=== PATIENT | female | born 1945 | race Caucasian/White ===

== ENCOUNTER 2016-08-12 07:50 | Day surgery (SDC) | payer MEDICARE ==
[2016-08-08 09:42] VITALS: BMI 24.8
[~2016-08-12 07:50] MED LIST: LACTATED RINGERS 1,000 ML IV SCH; LIDOCAINE 1% 20 ML VIAL (10MG/ML) FOR IV START INTRADERMA PRN
[2016-08-12 08:17] VITALS: RESP 16; TEMP 97.9
[2016-08-12] MEDS ORDERED: LIDOCAINE 1% INJ 10MG/ML (20 ML MDV) ONE (08:48)
[2016-08-12] MEDS ORDERED: PROPOFOL 10 MG/ML 20 ML VIAL IV ONE (08:48)
--- NOTE | 2016-08-12 09:35 | P.PCN ---
Date of Procedure: 08/12/16 Procedure(s) Performed: Procedure: Total colonoscopy. Preoperative diagnosis screening for neoplasia. Postoperative diagnosis: Diverticulosis with no evidence of acute diverticulitis , strictures, polyps or cancer. Preparation: HalfLytely prep. Sedation: Was provided by anesthesia. Brief clinical history: The patient is a 70-year-old female with family history of colon cancer in her mother and personal history of polyps. She is scheduled for this evaluation for screening for neoplasia. Her last exam was in January 2011. She has no abdominal complaints, bleeding or anemia. Procedure: With the patient on her left lateral decubitus position and after informed consent and adequate sedation, the perianal area was inspected and it did not show any fissures or fistulas. There were no masses felt on digital rectal examination. The Olympus CFQ 160L video colonoscope was then inserted in the rectum in the usual fashion and advanced to the cecum. There were multiple diverticular orifices seen scattered along the length of the bile most numerous and large or in the sigmoid and left colon with no evidence of acute diverticulitis or strictures. The mucosa appeared healthy. No polyps or tumors were seen. I retroflexed endoscope in the rectum before the endoscope was withdrawn. The patient tolerated the procedure well. Plan: The patient was reassured. Discussed dietary measures. I recommended a repeat exam in 5 years. She will follow-up with you as planned.
[2016-08-12 09:45] VITALS: BP 170/78; PULSE 80
== END 2016-08-12 09:51 | disposition home or self-care (01) ==
LOC: ORWHC2ENDO 07:50
DX: Z12.11 Encounter for screening for malignant neoplasm of colon (principal); Z80.0 Family history of malignant neoplasm of digestive organs; Z86.010 Personal history of colon polyps; K57.30 Diverticulosis of large intestine without perforation or abscess without bleeding; K21.9 Gastro-esophageal reflux disease without esophagitis; I10 Essential (primary) hypertension; F41.9 Anxiety disorder, unspecified; G25.81 Restless legs syndrome; Z79.891 Long term (current) use of opiate analgesic; Z79.899 Other long term (current) drug therapy
CPT/HCPCS: J2001; J2704; G0105

== ENCOUNTER → 2016-12-30 | Outpatient (CLI) | payer MEDICARE ==
[~2016-12-30] MED LIST changes: -LACTATED RINGERS 1,000 ML IV SCH; -LIDOCAINE 1% 20 ML VIAL (10MG/ML) FOR IV START INTRADERMA PRN; +REGADENOSON 0.4 MG/5 ML SYRINGE IV ONE
--- NOTE | 2016-12-30 13:21 | NM ---
EXAMINATION TYPE: NM stress lexiscan cardiolite DATE OF EXAM: 12/30/2016 COMPARISON: Nuclear medicine Lexiscan Cardiolite stress test December 05, 2014 HISTORY: History of tobacco use quit 17 years ago, COPD, family history of heart attack, and hyperten rock presents with chest pain, difficulty breathing, and palpitations per patient. TECHNIQUE: After the intravenous administration of 10.75 mCi Tc 99m Sestamibi - Cardiolite resting S PECT images acquired 45 minutes post injection. The patient received 0.4mg Lexiscan, 24.9 mCi Tc 99m Sestamibi - Stress images obtained [address] injection FINDINGS: Review of stress and rest SPECT images demonstrates no distinct perfusion abnormality. Gated analysi s shows normal wall motion with an estimated left ventricular ejection fraction of 59 %. IMPRESSION: No scintigraphic evidence for reversible ischemia.
--- NOTE | 2016-12-30 18:22 | EST ---
EXERCISE STRESS DATE OF SERVICE: 12/30/16. TYPE OF REPORT: Stress test. INDICATIONS: Chest discomfort. BASELINE HEART RATE: 61 BASELINE BLOOD PRESSURE: 140/68. MAXIMUM HEART RATE: 96 MAXIMUM BLOOD PRESSURE: 159/94 85% MPHR 125 100% MPHR 147 RESULTS: Baseline heart rate 61 beats per minute. Baseline blood pressure 140/68 mmHg. Recent 12 lead ECG shows sinus rhythm with nonspecific ST-T abnormalities with occasional PVCs. The patient received Lexiscan infusion per protocol. There is no definite ECG evidence for ischemia. Patient continued to have PVCs, single isolated PVCs. Heart rate and blood pressure response was normal. IMPRESSION: Abnormal ECG at baseline with nonspecific ST-T abnormalities and occasional PVCs. No definite ECG evidence of ischemia. Nuclear portion of the stress test will be reported separately. MMODL / IJN: [id number] /
== END | disposition home or self-care (01) ==
LOC: RADNMMAIN 08:28
PROVIDERS: ATTEND Internal Medicine
DX: R94.31 Abnormal electrocardiogram [ECG] [EKG] (principal); R07.9 Chest pain, unspecified
CPT/HCPCS: 93017; 78452; A9500; J2785

== ENCOUNTER → 2017-01-01 | Outpatient (CLI) | payer MEDICARE ==
--- NOTE | 2017-01-02 13:14 | MM ---
Reason for exam: screening (asymptomatic). Last mammogram was performed 1 year and 9 months ago. History: Patient is postmenopausal. Benign excisional biopsy of the left breast, 1970. Took estrogen for 10 years beginning at age 46. Took progesterone for 10 years beginning at age 46. Physical Findings: A clinical breast exam by your physician is recommended on an annual basis and results should be correlated with mammographic findings. MG 3D Screening Mammo W/Cad Bilateral CC and MLO view(s) were taken. Prior study comparison: April 12, 2015, bilateral MG screening mammo w CAD. May 18, 2013, bilateral digital screening mammo w/CAD. The breast tissue is heterogeneously dense. This may lower the sensitivity of mammography. Focal asymmetry posterior upper outer quadrant left breast is larger from 2014 and new from prior to that. Further evaluation is recommended. ASSESSMENT: Incomplete: need additional imaging evaluation, BI-RAD 0 RECOMMENDATION: Special view mammogram and ultrasound of the left breast. [facility] will attempt to contact patient to return for supplemental views and ultrasound.
== END | disposition home or self-care (01) ==
LOC: RADMAMWWP 09:17
PROVIDERS: ATTEND Obstetrics & Gynecology
DX: Z12.31 Encounter for screening mammogram for malignant neoplasm of breast (principal)
CPT/HCPCS: 77063; G0202

== ENCOUNTER → 2017-01-15 | Outpatient (CLI) | payer MEDICARE ==
--- NOTE | 2017-01-15 12:35 | MM ---
Reason for exam: additional evaluation requested from abnormal screening. Last mammogram was performed less than 1 month ago. History: Patient is postmenopausal. Benign excisional biopsy of the left breast, 1970. Took estrogen for 10 years beginning at age 46. Took progesterone for 10 years beginning at age 46. Physical Findings: Nurse Summary: 1cm nodule in the left breast at 4 o'clock (nurse mj). MG 3D Work Up W/Cad LT CC and MLO view(s) were taken of the left breast. Prior study comparison: January 01, 2017, bilateral MG 3d screening mammo w/cad. April 12, 2015, bilateral MG screening mammo w CAD. The breast tissue is heterogeneously dense. This may lower the sensitivity of mammography. Focal asymmetry upper outer quadrant at posterior depth at 2 o'clock persists on additional views. Corresponds with ultrasound findings. These results were verbally communicated with the patient and result sheet given to the patient on 01/15/17. ASSESSMENT: Suspicious, BI-RAD 4 RECOMMENDATION: Ultrasound core biopsy of the left breast. Called Dr. Palmer with mammographic findings and has scheduled an appointment for the patient for 02/06/17 at 8:[address] Baldwin. Biopsy scheduled for 01/17/17 at 8:00. PRELIMINARY REPORT CALLED AND FAXED TO DR. BALDWIN ON 01/15/17.
--- NOTE | 2017-01-15 12:36 | USB ---
Reason for exam: additional evaluation requested from abnormal screening. History: Patient is postmenopausal. Benign excisional biopsy of the left breast, 1969. Took estrogen for 10 years beginning at age 46. Took progesterone for 10 years beginning at age 46. US Breast Workup Limited Technologist: Nallely Jefferson Left breast ultrasound demonstrates a 0.5 x 0.3 x 0.5cm irregular, solid, hypoechoic lesion at 2 o'clock. These results were verbally communicated with the patient and result sheet given to the patient on 01/15/17. ASSESSMENT: Suspicious, BI-RAD 4 RECOMMENDATION: Ultrasound core biopsy of the left breast. Called Dr. Palmer with mammographic findings and has scheduled an appointment for the patient for 02/06/17 at 8:[address] Baldwin. Biopsy scheduled for 01/17/17 at 8:00. PRELIMINARY REPORT CALLED AND FAXED TO DR. BALDWIN ON 01/15/17.
== END | disposition home or self-care (01) ==
LOC: RADMAMWWP 10:16
PROVIDERS: ATTEND Obstetrics & Gynecology
DX: R92.8 Other abnormal and inconclusive findings on diagnostic imaging of breast (principal)
CPT/HCPCS: 76642; G0206; G0279

== ENCOUNTER → 2017-01-17 | Day surgery (SDC) | payer MEDICARE ==
[2017-01-17 07:58] VITALS: RESP 16; BMI 24.7
--- NOTE | 2017-01-17 09:56 | USB ---
EXAMINATION TYPE: US discontinued breast bx LT DATE OF EXAM: 01/17/2017 HISTORY: Breast nodule Given elevated systolic blood pressures over 190 the scheduled biopsy was discontinued and will be re scheduled.
[2017-01-23 10:02] VITALS: BP 151/83; PULSE 68; TEMP 97.6
== END ==
LOC: RADUSWWP 07:30
PROVIDERS: ATTEND Surgery
DX: C50.912 Malignant neoplasm of unspecified site of left female breast (principal); R92.8 Other abnormal and inconclusive findings on diagnostic imaging of breast
CPT/HCPCS: 88305; 88341; 88342

== ENCOUNTER → 2017-01-23 | Day surgery (SDC) | payer MEDICARE ==
--- NOTE | 2017-01-23 09:30 | USB ---
EXAMINATION TYPE: US biopsy breast VAD LT, MG diagnostic mammo LT wo CAD DATE OF EXAM: 01/23/2017 CLINICAL HISTORY: R92.8 Abn mammogram. TECHNIQUE: Ultrasound guided core biopsy of left 2:00 breast. COMPARISON: NONE FINDINGS: The procedure of ultrasound guided core biopsy was explained to the patient. Benefits, alternatives, and risks were discussed. An informed consent was then obtained. The patient was placed in supine positioning for imaging and for the procedure. The overlying skin was prepped and draped in usual sterile fashion. Lidocaine buffered with bicarbonate was used as anesthetic into the skin and subcutaneous tissue up to area of concern in the left 2:00 breast. A moises was made with surgical scalpel. Under ultrasound guidance, a 12-gauge vacuum assisted biopsy gun device was used to obtain 3 core samples. Following this, a biopsy clip was left in lesion. Postprocedural mammogram demonstrates appropriate deployment. The patient tolerated the procedure well without any immediate complication. The patient was kept in the radiology department for short stay after the procedure and then discharged home in stable condition. IMPRESSION: Successful, uncomplicated ultrasound guided core biopsy of area of concern in the left 2:00 breast, full pathology results to follow. Pathology Results: Malignant BREAST, LEFT, CORE BIOPSY: INVASIVE LOBULAR CARCINOMA. SEE SURGICAL PATHOLOGY CANCER CASE SUMMARY AND COMMENT. Recommendation Surgical consult of the left breast. Definitive surgical management. Pre operative MRI is recommended to evaluate for extent of disease as the biopsy marker appears to be located 2-2.5cm from the mammographic mass. MTDD
== END ==
LOC: RADUSWWP 01-17 12:00
PROVIDERS: ATTEND Surgery
DX: C50.912 Malignant neoplasm of unspecified site of left female breast (principal); Z17.0 Estrogen receptor positive status [ER+]
CPT/HCPCS: 88305; 88342; 88341; 19083; G0206; A4648

== ENCOUNTER → 2017-02-04 | Outpatient (CLI) | payer MEDICARE ==
[2017-02-04 08:02] LABS: Blood Urea Nitrogen 17 mg/dL (7-17); Non-African American GFR(MDRD) 55 (>60 ml/min/1.73 sqM)
--- NOTE | 2017-02-04 13:17 | BMR ---
EXAMINATION TYPE: MR breast BILAT wo/w con DATE OF EXAM: 02/04/2017 COMPARISON: Bilateral Three-D breast mammogram January 01, 2017 BI-RADS 0. Diagnostic left breast m ammogram January 15, 2017 BI-RADS 4. Limited left breast ultrasound January 15, 2017 BI-RADS 4 HISTORY: malignant neoplasm of breast newly diagnosed invasive lobular carcinoma on ultrasound-guided biopsy January 23, 2017 CONTRAST: Multiplanar, multisequence images of the breasts were acquired utilizing 6.5 mL intravenous Gadavist gadolinium contrast. TECHNIQUE: A series of fat and water weighted images in the long and short axis views of both breasts are obtained in conjunction with dynamic contrast MRI with subtraction technique. Three-dimensional and additional postprocessing imaging is created on independent workstation and reviewed during offi cial interpretation of this study. FINDINGS: Heterogeneously dense fibroglandular tissue in both breasts is redemonstrated most prominen t centrally. There is mild to moderate fairly symmetric background enhancement noted. In the marked p osterior outer aspect of left breast above level of nipple roughly 2:00 position corresponding to his tory there is 1.7 x 1.2 x 1.2 cm focal fluid collection of T1 hypointensity to T2 hyperintensity felt to reflect postbiopsy hematoma. Surrounding rim enhancement is seen. There is suspected artifact fro m biopsy clip just medial to this level. No suspicious residual enhancing mass is identified. No suspicious skin thickening is present bilaterally. T2-weighted images show no significant cystic c hange. No suspicious axillary or intramammary adenopathy is identified. The chest wall is intact bila terally. Incidental note is made of mild cardiomegaly. IMPRESSION: No MRI evidence for additional invasive malignancy in either breast. BI-RADS 2 benign findings right breast. BI-RADS 6 biopsy-proven carcinoma left breast. Recommendation: Appropriate surgical and oncologic management.
== END | disposition home or self-care (01) ==
LOC: RADMRIMAIN 07:22
PROVIDERS: ATTEND Surgery
DX: C50.919 Malignant neoplasm of unspecified site of unspecified female breast (principal); N18.2 Chronic kidney disease, stage 2 (mild)
CPT/HCPCS: 82565; 84520; 36415; 0159T; C8908; A9581; 77059

== ENCOUNTER 2017-02-24 08:49 | Day surgery (SDC) | payer MEDICARE ==
[2017-02-20 09:36] VITALS: BMI 24.3
[~2017-02-24 08:49] MED LIST changes: +ALPRAZolam 0.25 MG TAB PO PRN; +DEXAMETHASONE SOD PHOSPHATE 10 MG/ML 1 ML VIAL IV ONE; +HEPARIN SODIUM,PORCINE 5,000 UNIT/ML 1 ML VIAL SQ ONE; +LACTATED RINGERS 1,000 ML IV SCH; +MIDAZOLAM 2 MG/2 ML VIAL IV PRN; +ONDANSETRON 4 MG/2 ML VIAL IVP ONE; +Pre Op ABX Message 1 EACH MISC MISCELLANE ONE; -REGADENOSON 0.4 MG/5 ML SYRINGE IV ONE
[2017-02-24] MEDS ORDERED: LIDOCAINE 1% 20 ML VIAL (10MG/ML) FOR IV START INTRADERMA ONE (09:16)
[2017-02-24] MEDS ORDERED: SUCCINYLCHOLINE CHLORIDE 100 MG/5 ML SYR IV ONE (11:59)
[2017-02-24] MEDS ORDERED: LIDOCAINE 1% INJ 10MG/ML (20 ML MDV) ONE (11:59)
[2017-02-24] MEDS ORDERED: fentaNYL (PF) 50 MCG/ML 2 ML AMP ONE (11:59)
[2017-02-24] MEDS ORDERED: MIDAZOLAM 2 MG/2 ML VIAL ONE (11:59)
[2017-02-24] MEDS ORDERED: ePHEDrine SULFATE/0.9% NACL/PF 50 MG/5 ML SYRINGE IV ONE (11:59)
[2017-02-24] MEDS ORDERED: PROPOFOL 10 MG/ML 20 ML VIAL IV ONE (11:59)
[2017-02-24] MEDS ORDERED: SODIUM CHLORIDE 0.9% 50 ML with ceFAZolin 2,000 MG IV ONE ×2 (12:07)
--- NOTE | 2017-02-24 12:21 | NM ---
EXAMINATION TYPE: NM sentinel node injection DATE OF EXAM: 02/24/2017 COMPARISON: NONE HISTORY: 71-year-old female with biopsy-proven invasive lobular carcinoma in the left breast. TECHNIQUE AND FINDINGS: The procedure of sentinel lymph node injection was explained to the patient. The benefits, alternatives, and risks were discussed. An informed consent was then obtained. Overlying skin is cleaned with sterile alcohol. Lidocaine buffered with bicarbonate was used as anes thetic into the skin and subcutaneous tissue surrounding the nipple. Following this, 551 uCi Tc 99m Filtered Sulfur Colloid was injected into 4 equivalent doses at 12, 3, 6, and 9:00 position surroundi ng the left nipple intradermally. The injection sites were massaged by nuclear radiation engineer for 10 minutes after injection. T he patient tolerated the procedure well without any immediate complication. The patient was kept in the radiology department for short stay after the procedure and then taken to surgery for surgical pr ocedure what is presumed intraoperative gamma probe will be used for sentinel lymph node detection. IMPRESSION: Left breast radiotracer injection for sentinel node localization as above.
[2017-02-24] MEDS ORDERED: HYDROcodone/APAP 5-325MG 1 EACH TAB PO PRN (13:19)
[2017-02-24] MEDS ORDERED: NALOXONE 0.4 MG/ML 1 ML VIAL IV PRN (13:19)
--- NOTE | 2017-02-24 13:35 | P.OP ---
Date of Procedure: 02/24/17 Procedure(s) Performed: PREOPERATIVE DIAGNOSIS: Left breast cancer POSTOPERATIVE DIAGNOSIS: Same PROCEDURE: Left Breast wire localization lumpectomy with sentinel lymph node biopsy and BioSorb placement SURGEON: Nicolasa EBL: Minimal ANESTHESIA: General COMPLICATIONS: None OPERATIVE PROCEDURE: Patient was placed on the operating room table in the supine position. 2 mL of methylene blue was injected into the subareolar space. The breast was then massaged for 5 minutes. The left axilla was addressed at that time. The hot spot in the right axilla was identified. The wire was entering the breast at around the 10:00 location directed medially. I decided to make a curvilinear incision between the wire entrance site and the radioactive hot spot to utilize a single incision for both lumpectomy and sentinel lymph node biopsy. The subcutaneous tissues were divided using electrocautery. Using the neoprobe I identified a total of 2 sentinel lymph nodes. Both were bluish in color. There was an adjacent lymph node that seemed to be somewhat adherent to Jena lymph node #2 and this was sent as a third lymph node that was not technically considered a sentinel node. These were all removed and sent to pathology for close examination. Frozen sections from these lymph nodes were negative for metastatic disease. No bleeding was seen. I then followed the wire down into the breast tissue. An adequate lumpectomy specimen then took place around the wire. Margins of 1.5-2 cm worth attempted to be achieved. Anteriorly and inferiorly there did appear to be some thicker breast tissue. I took a new anterior/inferior margin and the new margin was painted the appropriate colors. Posteriorly we were on the chest wall. The lumpectomy specimen was also labeled on 6 size using the appropriate colors. The specimen radiograph was reviewed with radiology. The area of suspected density was thought to be present within the specimen. Again the clip was not utilized because of its previous migration. The BioSorb sizers were utilized. A 2 x 3 cm BioSorb device was placed at the lumpectomy site and sutured in place using 3-0 Vicryl sutures. The subcutaneous tissues were closed using 3-0 Vicryl sutures. The skin was closed using a running 4-0 Monocryl stitch. Steri-Strips and sterile dressings were applied. DISPOSITION: Stable to recovery room
[2017-02-24] MEDS: HYDROmorphone 1 MG/ML 1 ML SYRINGE IVP PRN ×4 (13:48→14:12)
[2017-02-24 13:50] VITALS: TEMP 97.2
--- NOTE | 2017-02-24 13:52 | USB ---
EXAMINATION TYPE: US breast localization LT, MG surgical specimen LT DATE OF EXAM: 02/24/2017 COMPARISON: 01/23/2017, 01/15/2017, 01/01/2017 CLINICAL HISTORY: 71 year-old female with biopsy-proven left-sided invasive lobular carcinoma. TECHNIQUE: Needle localization with wire placement and surgical excision of area of concern in the left breast. Wire placement under ultrasound guidance. FINDINGS: The procedure of needle localization with wire placement and then surgical excision was explained to the patient. Benefits, alternatives, and risks were discussed. An informed consent was then obtained. Ultrasound guidance was utilized as clip migration was noted on the postprocedure mammogram. Residual focal asymmetry was demonstrated at the far posterior upper outer quadrant. Targeted ultrasound showed a small residual lesion measuring 3 x 4 mm at the site of previous 6 mm mass. This was targeted for wire placement. The shortest pathway for procedure was chosen. Shortest pathway was a lateral approach. The overlying skin was prepped and draped in usual sterile fashion. Lidocaine was used as anesthetic into the skin and subcutaneous tissue up to the level of area of concern. A 5 cm Kopans needle was used. It was placed via a lateral approach under ultrasound guidance. The needle was withdrawn leaving the wire in place. The lesion is seen to be along the distal aspect of the thick segment. Postplacement mammogram showed the focal asymmetry at the distal aspect of the wire near the end of the thick segment. Images were marked for the surgeon. The wire was fixed to patient's skin. Images were marked for surgeon. The patient tolerated the procedure well without any immediate complication. The patient was kept in the radiology department for short stay after the procedure and then taken to surgery for surgical excision. Wire is demonstrated in the specimen mammogram. There are 2 adjacent areas of asymmetric densities either one of which could represent the area of interest. The patient was kept in hospital for short stay after the procedure and then discharged home in stable condition. IMPRESSION: Successful, uncomplicated ultrasound-guided needle localization with wire placement and surgical excision of biopsy-proven invasive lobular carcinoma in the left breast, full pathology results to follow. Note that the clip was not targeted given clip migration after biopsy. Pathology Results: Malignant A. LYMPH NODE, SENTINEL #1, BIOPSY: LYMPH NODE NEGATIVE FOR METASTASIS. CYTOKERATIN 7 AND CAIN IMMUNOHISTOCHEMICAL STAINS ARE CONFIRMATORY (CONTROLS APPROPRIATE). B. LYMPH NODE, SENTINEL #2, BIOPSY: LYMPH NODE NEGATIVE FOR METASTASIS. CYTOKERATIN 7 AND CAIN IMMUNOHISTOCHEMICAL STAINS ARE CONFIRMATORY (CONTROLS APPROPRIATE). C. LYMPH NODE, SENTINEL #3, BIOPSY: LYMPH NODE NEGATIVE FOR METASTASIS. CYTOKERATIN 7 AND CAIN IMMUNOHISTOCHEMICAL STAINS ARE CONFIRMATORY (CONTROLS APPROPRIATE). D. BREAST, LEFT, IMAGE GUIDED WIRE LOCALIZATION AND BIOPSY: INVASIVE LOBULAR CARCINOMA AND ATYPICAL LOBULAR HYPERPLASIA. FIBROCYSTIC CHANGE (FOCALLY DENSE FIBROSIS, CYST FORMATION, APOCRINE METAPLASIA, ADENOSIS, COLUMNAR CELL CHANGE AND FOCAL MILD DUCT HYPERPLASIA). E. BREAST, ANTERIOR INFERIOR MARGIN, EXCISIONAL BIOPSY: FIBROCYSTIC CHANGE ( DENSE STROMAL FIBROSIS, CYST FORMATION, FEATURES OF DUCT ECTASIA, ADENOSIS, MILD DUCT HYPERPLASIA AND CALCIFICATIONS). CHRONIC INFLAMMATION. NEGATIVE FOR MALIGNANCY. Recommendation Surgical consult of the left breast. VERONICAD
--- NOTE | 2017-02-24 14:11 | MM ---
Reason for exam: additional evaluation requested from abnormal screening. Last mammogram was performed 1 month ago. History: Patient is postmenopausal and has history of breast cancer at age 71. Malignant US biopsy breast VAD LT of the left breast, January 23, 2017. US discontinued breast bx LT of the left breast, January 17, 2017. Benign excisional biopsy of the left breast, 1970. Took estrogen for 10 years beginning at age 46. Took progesterone for 10 years beginning at age 46. MG Diagnostic Mammo LT Wo CAD CC and MLO view(s) were taken of the left breast. Prior study comparison: January 23, 2017, left breast MG diagnostic mammo LT wo CAD. January 15, 2017, left breast MG 3d work up w/cad LT. ASSESSMENT: Post procedure mammogram for marker placement RECOMMENDATION: Ultrasound of the left breast in 6 months. PENDING PATHOLOGY RESULTS.
[2017-02-24 14:25] VITALS: RESP 16
[2017-02-24] MEDS ORDERED: HYDROcodone/APAP 5-325MG 1 EACH TAB OG-TUBE ONE (14:54)
[2017-02-24 15:25] VITALS: BP 154/89; PULSE 99
== END 2017-02-24 15:38 | disposition home or self-care (01) ==
LOC: OR 08:49
PROVIDERS: ATTEND Surgery
DX: C50.912 Malignant neoplasm of unspecified site of left female breast (principal); N62 Hypertrophy of breast; N60.32 Fibrosclerosis of left breast; N60.02 Solitary cyst of left breast; N60.82 Other benign mammary dysplasias of left breast; N60.22 Fibroadenosis of left breast; R92.1 Mammographic calcification found on diagnostic imaging of breast; I10 Essential (primary) hypertension; K21.9 Gastro-esophageal reflux disease without esophagitis; F41.9 Anxiety disorder, unspecified; F32.9 Major depressive disorder, single episode, unspecified; Z79.891 Long term (current) use of opiate analgesic; Z79.899 Other long term (current) drug therapy
CPT/HCPCS: 19301; 38500; 88342; 88331; 88307; 88341; 76098; 19285; 38792; A4648; G0206; A9541; J2250; J1644; J1100; J2405; J2001; J3010; J1170; J0690; J0330; J2704

== ENCOUNTER 2017-04-01 10:23 | Day surgery (SDC) | payer MEDICARE ==
[2017-03-31 08:38] VITALS: BMI 24.7
[~2017-04-01 10:23] MED LIST changes: -ALPRAZolam 0.25 MG TAB PO PRN; -DEXAMETHASONE SOD PHOSPHATE 10 MG/ML 1 ML VIAL IV ONE; -HEPARIN SODIUM,PORCINE 5,000 UNIT/ML 1 ML VIAL SQ ONE; -MIDAZOLAM 2 MG/2 ML VIAL IV PRN; -ONDANSETRON 4 MG/2 ML VIAL IVP ONE; -Pre Op ABX Message 1 EACH MISC MISCELLANE ONE
[2017-04-01] MEDS: PHENYLEPHRINE 10% OPHTH DROPS 5 ML BTL OP ONE ×3 (11:31→12:00)
[2017-04-01 11:35] VITALS: RESP 16; TEMP 98.2
[2017-04-01] MEDS: CYCLOPENTOLATE 1% OPHTH SOLN 2 ML BTL OP ONE ×3 (11:35→12:05)
[2017-04-01] MEDS: KETOROLAC 0.5% OPHTH DROPS 5 ML BTL OP ONE ×3 (11:38→12:09)
[2017-04-01] MEDS ORDERED: LIDOCAINE 1% 20 ML VIAL (10MG/ML) FOR IV START INTRADERMA ONE (11:45)
[2017-04-01] MEDS ORDERED: PROPOFOL 10 MG/ML 20 ML VIAL IV ONE (12:34)
[2017-04-01] MEDS ORDERED: EPINEPHrine (PF) 0.5 ML in BALANCED SALT IRRIG SOLN COMB2 500 ML IRRIGATION ONE (12:40)
[2017-04-01] MEDS ORDERED: BALANCED SALT IRRIG SOLN COMB2 15 ML IRRIG.SOLN INTRAOCULA ONE (12:40)
[2017-04-01] MEDS ORDERED: HYALURONATE SODIUM INTRAOCULAR 1 EACH SYRINGE (10MG/ML) INTRAOCULA ONE (12:40)
--- NOTE | 2017-04-01 12:57 | P.OP ---
Date of Procedure: 04/01/17 Procedure(s) Performed: PREOPERATIVE DIAGNOSIS: Cataract, left eye. POSTOPERATIVE DIAGNOSIS: Cataract, left eye. OPERATION: Phacoemulsification cataract, left eye. DESCRIPTION OF PROCEDURE: The patient was taken to the preoperative holding area. Intravenous Propofol was given so as to bring about adequate sedation. The following mixture was given for local anesthesia: 5 mL of 2% lidocaine, 5 mL of 0.75% Marcaine, and 1 mL of Wydase. Approximately 4 mL was injected in the retrobulbar space of the surgical eye. Additional 1 mL was then directed to the temporal area of the surgical eye. This was performed to allow adequate neurological block of the facial muscles. The patient was revived and then taken into the operative room. The patient was prepped and draped in the usual sterile manner for the operative eye. A lid speculum was put into position. The conjunctiva was resected back from the limbus in the 12 o'clock position. Bleeding was controlled with electrocautery. A #69 blade was then used and a half-thickness scleral incision approximately 1-mm posterior to the limbus was made on bare sclera. This was shelved in the clear cornea using a crescent knife. Next a 15-degree blade was used to make a stab incision at the 3 o' clock position at the corneolimbal interface. Keratome blade was then used and the superior wound was extended into the anterior chamber. Viscoelastic was injected into the anterior chamber and to maintain its form. Next, a cystotome was used and a continuous anterior capsulotomy was made without difficulty. Hydrodissection using a blunt cannula and BSS was performed. Phaco probe was then employed and a groove extending from 12 to 6 o'clock in the lens was created. A Rodrigo wand was used through the stab incision so as to perform a divide and conquer technique. Next an irrigation aspiration probe was utilized and any residual cortex was removed from the eye. Again, viscoelastic was injected into the anterior chamber. An Ramsey posterior chamber lens implant was placed in the cartridge and injected into the anterior chamber without difficulty. The [employer] hook was utilized to spin the lens into position and this was again performed without any difficulty. The irrigation and aspiration probe was again employed and any residual viscoelastic was removed from the eye. Then BSS was injected into the limbal stab incision and the anterior chamber re-inflated. The conjunctiva was reapproximated using electrocautery. One drop of 0.25% Timoptic was placed over the corneal along with TobraDex ophthalmic ointment. Two sterile patches and a Thomas eye shield were taped into position. The patient was transported to the recovery room in stable condition. Pathology: none sent Condition: stable Disposition: same day
[2017-04-01 13:13] VITALS: BP 141/71; PULSE 63
[2017-04-01] MEDS ORDERED: TIMOLOL 0.5% OPHTH SOLN (PF) 0.2 ML DROPERETTE OP ONE (23:00)
[2017-04-01] MEDS ORDERED: GENTAMICIN/PREDNISOL AC OPHTH OINT 3.5GM OPHTHALMIC ONE (23:00)
[2017-04-01] MEDS ORDERED: BUPIVACAINE (PF) 0.75% 5 ML, LIDOCAINE 4% (PF) 5 ML, HYALURONIDASE, HUMAN RECOMB 150 UNIT MISCELLANE ONE ×3 (23:00)
== END 2017-04-01 13:29 | disposition home or self-care (01) ==
LOC: OR 10:23
PROVIDERS: ATTEND Ophthalmology
DX: H26.9 Unspecified cataract (principal); I10 Essential (primary) hypertension; K21.9 Gastro-esophageal reflux disease without esophagitis; F32.9 Major depressive disorder, single episode, unspecified; F41.9 Anxiety disorder, unspecified; Z79.899 Other long term (current) drug therapy; Z96.1 Presence of intraocular lens
CPT/HCPCS: 66984; V2632; J2001; J3470; J0171; J2704; 76098

== ENCOUNTER → 2017-07-18 | Outpatient (CLI) | payer MEDICARE ==
--- NOTE | 2017-07-18 15:56 | BD ---
EXAMINATION TYPE: MG DEXA axial skeleton. DATE OF EXAM: 07/18/2017 COMPARISON: NONE CLINICAL HISTORY: Height: 61.5 IN Weight: 143 LBS FRAX RISK QUESTIONS: Alcohol (3 or more units per day): NO Family History (Parent hip fracture): NO Glucocorticoids (More than 3mos): NO (Ex: prednisone, prednisolone, methylprednisolone, dexamethasone, and hydrocortisone). History of Fracture in Adulthood: NO Secondary Osteoporosis: 1. Type 1 Diabetes: NO 2. Hyperthyroidism: NO 3. Menopause before 45: NO AGE 46 4. Malnutrition: NO 5. Chronic liver disease: NO Rheumatoid Arthritis: NO Current Tobacco Use: NO RISK FACTORS HISTORY OF: Active: YES Diet low in dairy products/other sources of calcium: YES Postmenopausal woman: AGE 46 Take estrogen and/or progesterone medications: NOT NOW How long: AGE 46 - 56 MEDICATIONS: Additional Medications: CALCIUM, VIT D, VIT C, MULTI VIT, IRON, HAIR NAILS AND SKIN, AMOXICILLIN, BR EAST CANCER MEDS(SHELBY), BLOOD PRESSURE , Additional History: BREAST CANCER WITH RADIATION EXAM MEASUREMENTS: Bone mineral densitometry was performed using the Pittarello System. Bone mineral density as measured about the Lumbar spine is: ----- L1-L4(G/cm2): 1.025 T Score Values are as follows: ----- L2: -1.9 ----- L3: -0.4 ----- L4: -1.0 ----- L1-L4: -1.3 Bone mineral density BASELINE Bone mineral density about the R hip (g/cm2): 0.802 Bone mineral density about the L hip (g/cm2): 0.824 T Score values are as follows: -----R Neck: -1.7 -----L Neck: -1.5 -----R Total: -0.8 -----L Total: -1.0 Bone mineral density BASELINE IMPRESSION: Osteopenia (T Score between -2.5 and -1). There is slightly increased risk of fracture and the patient may be considered for treatment. Re-Screen 2-5 years. NOTE: T-SCORE=SD OF THE YOUNG ADULT MEAN.
== END | disposition home or self-care (01) ==
LOC: RADBDWWP 14:25
PROVIDERS: ATTEND Internal Medicine Hematology & Oncology
DX: C50.412 Malignant neoplasm of upper-outer quadrant of left female breast (principal); M85.80 Other specified disorders of bone density and structure, unspecified site; Z79.890 Hormone replacement therapy
CPT/HCPCS: 77080

== ENCOUNTER → 2017-09-01 | Outpatient (CLI) | payer MEDICARE ==
--- NOTE | 2017-09-01 09:53 | XR ---
EXAMINATION TYPE: XR lumbar spine 2 or 3V DATE OF EXAM: 09/01/2017 CLINICAL HISTORY: pain TECHNIQUE: Three views of the lumbar spine are submitted. COMPARISON: 04/12/2015 FINDINGS: Rotoscoliotic curvature seen convex to the right. Severe degenerative disc disease is noted throughou t with vacuum disc seen. Grade 1 anterolisthesis of L3 on L4 and L4 and L5. Severe facet joint arthro amado. No evidence for compression fracture or bony destructive process. IMPRESSION: Severe multilevel degenerative disc disease as noted. ICD 10 NO FRACTURE, INITIAL EVALUATION
== END | disposition home or self-care (01) ==
LOC: RADXRMAIN 09:30
PROVIDERS: ATTEND Internal Medicine
DX: M51.36 Other intervertebral disc degeneration, lumbar region (principal)
CPT/HCPCS: 72100

== ENCOUNTER → 2017-10-13 | Outpatient (CLI) | payer MEDICARE ==
--- NOTE | 2017-10-13 13:47 | MM ---
Reason for exam: follow-up at short interval from prior study. Last mammogram was performed 8 months ago. History: Patient is postmenopausal and has history of breast cancer at age 71. Radiation therapy of the left breast, April 2017. US breast localization LT, February 24, 2017. Lumpectomy of the left breast, February 24, 2017. Malignant US biopsy breast VAD LT of the left breast, January 23, 2017. US discontinued breast bx LT of the left breast, January 17, 2017. Benign excisional biopsy of the left breast, 1969. Took estrogen for 10 years beginning at age 46. Took progesterone for 10 years beginning at age 46. Taking antineoplastic beginning at age 71. Physical Findings: Nurse Summary: 1cm nodule in the left breast at 12 o'clock, 2 o'clock (nurse mj). MG 3D Diag Mammo W/Cad REYES Bilateral CC and MLO view(s) were taken. Prior study comparison: February 24, 2017, left breast MG diagnostic mammo LT wo CAD. January 23, 2017, left breast MG diagnostic mammo LT wo CAD. The breast tissue is heterogeneously dense. This may lower the sensitivity of mammography. Palpable marker on the left. Post surgical and post therapy change left breast with a BioZorb maker near the axilla. Possible obscured 2-6cm focal asymmetry 1 o'clock subareolar region left breast. Otherwise, no significant change. These results were verbally communicated with the patient and result sheet given to the patient on 10/13/17. ASSESSMENT: Incomplete: need additional imaging evaluation, BI-RAD 0 RECOMMENDATION: Ultrasound of the left breast. (11-3 o'clock including palpable)
--- NOTE | 2017-10-13 13:53 | USB ---
Reason for exam: additional evaluation requested from abnormal screening. History: Patient is postmenopausal and has history of breast cancer at age 71. Radiation therapy of the left breast, April 2017. US breast localization LT, February 24, 2017. Lumpectomy of the left breast, February 24, 2017. Malignant US biopsy breast VAD LT of the left breast, January 23, 2017. US discontinued breast bx LT of the left breast, January 17, 2017. Benign excisional biopsy of the left breast, 1970. Took estrogen for 10 years beginning at age 46. Took progesterone for 10 years beginning at age 46. Taking antineoplastic beginning at age 71. US Breast Limited LT Left limited breast ultrasound including focal area of concern, retroareolar and axilla demonstrates a 2.0 x 1.8 x 0.9cm oval, hypoechoic lesion at 12 o'clock lateral to nipple, probably the lateral margin of patient's inverted nipple, a 1.4 x 1.9 x 0.7cm oval, irregular, hypoechoic lesion at 12:30 palpable for which a biopsy is recommended, a 1.1 x 1.1 x 0.5cm oval, hypoechoic lesion at 1 o'clock, vague area, 6 month follow up recommended, a 1.8 x 1.7 x 1.4cm oval, cystic lesion at the axilla tail versus hypoechoic lymph node for which aspirate/biopsy is recommended and a BioZorb marker at 2 o'clock. Scanned 11-3 o'clock. These results were verbally communicated with the patient and result sheet given to the patient on 10/13/17. ASSESSMENT: Suspicious, BI-RAD 4 RECOMMENDATION: Surgical consultation and ultrasound core biopsy of the left breast. (2 site) Called with mammographic findings and has scheduled an appointment for the patient with Dr. Alva. Biopsy scheduled for 10/24/17 at 11:30. PRELIMINARY REPORT CALLED AND FAXED TO DR. ALVA ON 10/13/17.
== END ==
LOC: RADMAMWWP 10:14
PROVIDERS: ATTEND Radiology Radiation Oncology
DX: Z08 Encounter for follow-up examination after completed treatment for malignant neoplasm (principal); R92.8 Other abnormal and inconclusive findings on diagnostic imaging of breast; Z85.3 Personal history of malignant neoplasm of breast
CPT/HCPCS: 77066; 76642; G0279; 77062

== ENCOUNTER → 2017-10-24 | Day surgery (SDC) | payer MEDICARE ==
[2017-10-24 11:01] VITALS: RESP 16; BMI 24.7
[2017-10-24 12:51] VITALS: BP 155/85; PULSE 77; TEMP 98.1
--- NOTE | 2017-10-24 13:57 | USB ---
EXAMINATION TYPE: US biopsy breast VAD LT, US breast aspiration ea add LT, MG diagnostic mammo LT wo CAD DATE OF EXAM: 10/24/2017 CLINICAL HISTORY: R92.8 ABN MAMMO. TECHNIQUE: Ultrasound guided core biopsy of left breast. COMPARISON: Exams dating back to 02/04/2017 FINDINGS: The procedure of ultrasound guided core biopsy was explained to the patient. Benefits, alternatives, and risks were discussed. An informed consent was then obtained. Preprocedural timeout was performed. Site A: The patient was placed in supine positioning for imaging and for the procedure. The overlying skin was prepped and draped in usual sterile fashion. 10 cc of buffered with bicarbonate was used as anesthetic into the skin and subcutaneous tissue up to the irregular hypoechoic shadowing elongated lesion at the 12:30 position approximately 1 cm from the postsurgical site. Under ultrasound guidance, a 12-gauge vacuum assisted biopsy gun device was used to obtain 4 core samples. Following this, a wing shaped biopsy marker was left in mass. Postprocedural mammogram demonstrates appropriate placement of the clip. Site B: The overlying skin was prepped and draped in usual sterile fashion. 10 cc of buffered with bicarbonate was used as anesthetic into the skin and subcutaneous tissue up to the hypoechoic, nearly anechoic left axillary mass. Under ultrasound guidance, a 20-gauge vacuum spinal needle was utilized to aspirate approximately 2 cc of thin serosanguineous fluid. Following this, a hydromark biopsy marker was left in mass. Postprocedural mammogram demonstrates appropriate placement of the clip. The patient tolerated the procedure well without any immediate complication. The patient was kept in the radiology department for short stay after the procedure and then discharged home in stable condition. IMPRESSION: Successful, uncomplicated ultrasound guided core biopsy of an irregular elongated mass at the 12:30 position in the left breast as well as aspiration of a left axillary fluid collection that could represent a necrotic lymph node or postoperative seroma in this patient with history of axillary lymph node dissection, full pathology results to follow. The primary mass is noted adjacent to the postoperative site and could indicate recurrence or postoperative fibrosis/fat necrosis. Pathology Results: Benign LEFT AXILLA, ASPIRATE: Mixed lymphocytes with degenerated cellular material, scattered macrophages and acute inflammatory cells. No cytologically malignant cells identified. See note. BREAST, LEFT, 12:30, ULTRASOUND GUIDED CORE BIOPSY: Benign breast with prominent stromal fibrosis/scar and lobular cytopathic changes suggestive of radiation effect. Recommendation Follow up ultrasound of the left breast in 6 months. MTDD
== END ==
LOC: RADUSWWP 10:25
PROVIDERS: ATTEND Surgery
DX: N60.32 Fibrosclerosis of left breast (principal); R92.8 Other abnormal and inconclusive findings on diagnostic imaging of breast; Z85.3 Personal history of malignant neoplasm of breast; I89.9 Noninfective disorder of lymphatic vessels and lymph nodes, unspecified; Z91.09 Other allergy status, other than to drugs and biological substances
CPT/HCPCS: 88305; 88173; 77065; 38505; 19083; A4648; J2001; 76942

== ENCOUNTER → 2018-01-23 | Outpatient (CLI) | payer MEDICARE ==
--- NOTE | 2018-01-23 14:17 | US ---
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 Abnormal EKG, stenosis EXAM MEASUREMENTS: RIGHT: Peak Systolic Velocity (PSV) cm/sec ----- Right CCA: 67.9 ----- Right ICA: 80.2 ----- Right ECA: 77.5 ICA/CCA ratio: 1.2 RIGHT: End Diastole cm/sec ----- Right CCA: 15.6 ----- Right ICA: 22.4 ----- Right ECA: 8.2 LEFT: Peak Systolic Velocity (PSV) cm/sec ----- Left CCA: 72.0 ----- Left ICA: 86.3 ----- Left ECA: 76.8 ICA/CCA ratio: 1.2 LEFT: End Diastole cm/sec ----- Left CCA: 19.0 ----- Left ICA: 20.4 ----- Left ECA: 10.9 VERTEBRALS (direction of flow): Right Vertebral: Antegrade Left Vertebral: Antegrade Rhythm: Normal No elevated velocities Turbulent flow is within the right internal carotid artery just distal to a plaque in the carotid bul b. Left carotid bulb atheromatous plaquing is also present creating turbulent flow. IMPRESSION: 1. No significant flow-limiting stenosis. 2. Mild intimal thickening with some scattered atheromatous plaques present. This is creating some tu rbulent flow. Criteria for Assigning % of Stenosis / Diameter reduction (Estimation based on the indirect measurements of the internal carotid artery velocities (ICA PSV). 1. Normal (no stenosis)=ICA PSV < 125 cm/s: ratio < 2.0: ICA EDV<40 cm/s. 2. Less than 50% stenosis=ICA PSV < 125 cm/s: ratio < 2.0: ICA EDV<40 cm/s. 3. 50 to 69% stenosis=ICA PSV of 125 to 230 cm/s: ration 2.0 ? 4.0: ICA EDV 40-100 cm/s. 4. Greater than 70% stenosis to near occlusion= ICA PSV > 230 cm/s: ratio > 4.0: ICA EDV > 100 cm/s. 5. Near occlusion= ICA PSV velocities may be low or undetectable: variable ratio and ICA EDV. 6. Total occlusion=unable to detect flow.
== END ==
LOC: RADUSWWP 12:57
PROVIDERS: ATTEND Internal Medicine
DX: I65.23 Occlusion and stenosis of bilateral carotid arteries (principal)
CPT/HCPCS: 93880

== ENCOUNTER → 2018-04-20 | Outpatient (CLI) | payer MEDICARE ==
--- NOTE | 2018-04-21 16:19 | USB ---
Reason for exam: additional evaluation requested from abnormal screening. History: Patient is postmenopausal and has history of breast cancer at age 71. Benign US breast aspiration ea add LT of the left breast, October 24, 2017. Benign US biopsy breast VAD LT of the left breast, October 24, 2017. Radiation therapy of the left breast, April 2017. US breast localization LT, February 24, 2017. Lumpectomy of the left breast, February 24, 2017. Malignant US biopsy breast VAD LT of the left breast, January 23, 2017. US discontinued breast bx LT of the left breast, January 17, 2017. Benign excisional biopsy of the left breast, 1969. Took estrogen for 10 years beginning at age 46. Took progesterone for 10 years beginning at age 46. Taking antineoplastic beginning at age 71. Indicated problem(s): palpable abnormality in the left breast. Physical Findings: Nurse Summary: left thickening post radiation, 1 cm palpable abnormality at 12 o'clock. Upper outer quadrant at 2 o'clock by scar, biosorb marker possibly. US Breast LT Left complete breast ultrasound includes all four quadrants, the retroareolar region and axilla. Finding demonstrates a 0.8 x 0.5 x 0.7cm mixed lesion at 12 O'clock, a 1.1 x 0.5 x 0.9 mixed lesion at 12:30, a 0.3 x 0.2 to small to characterize lesion at 11 o'clock, a 2.4 x 1.5 x 1.7 cm solid lesion at the axillary tail near sit of aspiration to correspond to secondary scar in disection. And a 0.7 x 0.6 x 0.8 cm node in the axilla and a second node in the axilla that measures 0.5 x 0.3 x 0.4cm. These results were verbally communicated with the patient and result sheet given to the patient on 04/20/18. ASSESSMENT: Probably benign, BI-RAD 3 RECOMMENDATION: Follow-up diagnostic mammogram of both breasts in 6 months. Ultrasound of the left breast in 6 months.
== END | disposition home or self-care (01) ==
LOC: RADUSWWP 08:20
PROVIDERS: ATTEND Surgery
DX: R92.8 Other abnormal and inconclusive findings on diagnostic imaging of breast (principal)

== ENCOUNTER → 2018-10-19 | Outpatient (CLI) | payer MEDICARE ==
--- NOTE | 2018-10-19 11:30 | MM ---
Reason for exam: additional evaluation requested from prior study. Last mammogram was performed 1 year ago. History: Patient is postmenopausal and has history of breast cancer at age 71. Family history of breast cancer at age 40. Benign US breast aspiration ea add LT of the left breast, October 24, 2017. Benign US biopsy breast VAD LT of the left breast, October 24, 2017. Radiation therapy of the left breast, April 2017. US breast localization LT, February 24, 2017. Lumpectomy of the left breast, February 24, 2017. Malignant US biopsy breast VAD LT of the left breast, January 23, 2017. US discontinued breast bx LT of the left breast, January 17, 2017. Benign excisional biopsy of the left breast, 1970. Took estrogen for 10 years beginning at age 46. Took progesterone for 10 years beginning at age 46. Taking antineoplastic for 2 years beginning at age 71. Physical Findings: Nurse did not find any significant physical abnormalities on exam. MG 3D Diag Mammo W/Cad REYES Bilateral CC and MLO view(s) were taken. XCCL and LM view(s) were taken of the left breast. Prior study comparison: October 24, 2017, left breast MG diagnostic mammo LT wo CAD. October 13, 2017, bilateral MG 3d diag mammo w/cad REYES. The breast tissue is heterogeneously dense. This may lower the sensitivity of mammography. Post surgical and post therapy changes at the left with posterior upper outer quadrant Biozorb. Underlying partially obscured focal asymmetry centrally and laterally left breast seems to persist. These results were verbally communicated with the patient and result sheet given to the patient on 10/19/18. ASSESSMENT: Incomplete: need additional imaging evaluation, BI-RAD 0 RECOMMENDATION: Ultrasound of the left breast.
--- NOTE | 2018-10-19 11:49 | USB ---
Reason for exam: additional evaluation requested from prior study. History: Patient is postmenopausal and has history of breast cancer at age 71. Family history of breast cancer at age 40. Benign US breast aspiration ea add LT of the left breast, October 24, 2017. Benign US biopsy breast VAD LT of the left breast, October 24, 2017. Radiation therapy of the left breast, April 2017. US breast localization LT, February 24, 2017. Lumpectomy of the left breast, February 24, 2017. Malignant US biopsy breast VAD LT of the left breast, January 23, 2017. US discontinued breast bx LT of the left breast, January 17, 2017. Benign excisional biopsy of the left breast, 1970. Took estrogen for 10 years beginning at age 46. Took progesterone for 10 years beginning at age 46. Taking antineoplastic for 2 years beginning at age 71. US Breast LT Left complete breast ultrasound includes all four quadrants, the retroareolar region and axilla. Finding demonstrates a 1.1 x 1.4 x 0.6 cm oval mixed hypoechoic lesion at 12 o'clock, questioning a poorly defined fat lobule. A 1.2 x 1.6 x 0.4 cm oval hypoechoic lesion at 12:30, this is similar in appearance to the 12 o'clock and a 6 month follow up is recommended. A 3.2 x 1.8 x 2.4 cm Biosorb marker at the 1 o'clock. A 0.2 x 0.3 x 0.2 cm oval to small to characterize lesion at 5 o'clock. A 0.3 x 0.3 x 0.3 cm oval dilated duct -vs- small cyst cluster for which a 6 month follow up is recommended. Post nipple notes an inverted nipple. Left axillary tail is 0.2 cm, #2 0.9 x 0.9 x 0.4 cm with cortex of 0.2 cm non-enlarged nodes felt to be benign. These results were verbally communicated with the patient and result sheet given to the patient on 10/19/18. ASSESSMENT: Probably benign, BI-RAD 3 RECOMMENDATION: Ultrasound and follow-up diagnostic mammogram of the left breast in 6 months.
== END | disposition home or self-care (01) ==
LOC: RADMAMWWP 08:52
PROVIDERS: ATTEND Surgery
DX: R92.8 Other abnormal and inconclusive findings on diagnostic imaging of breast (principal)
CPT/HCPCS: 77066; 76641; G0279; 77062

== ENCOUNTER → 2018-10-19 | Outpatient (CLI) | payer MEDICARE ==
[2018-10-19 11:23] LABS: Basophils # (A) 0.1 k/uL (0-0.2); Basophils % (A) 1 %; Eosinophils # (A) 0.2 k/uL (0-0.7); Eosinophils % (A) 5 %; HCT 41.8 % (34.0-46.0); HGB 13.9 gm/dL (11.4-16.0); Lymphocytes % (A) 25 %; MCH 31.5 pg (25.0-35.0); MCHC 33.3 g/dL (31.0-37.0); MCV 94.6 fL (80.0-100.0); Mean Platelet Volume 7.4; Monocytes # (A) 0.3 k/uL (0-1.0); Monocytes % (A) 6 %; Neutrophils # (A) 2.4 k/uL (1.3-7.7); Neutrophils % (A) 60 %; Platelet Count 284 k/uL (150-450); RBC 4.42 m/uL (3.80-5.40); RDW 12.8 % (11.5-15.5)
[2018-10-19 15:56] LABS: African American GFR (CKD) 72.5 (60.0-200.0); Albumin 4.5 g/dL (3.80-4.90); Albumin/Globulin Ratio 2.25 (1.60-3.17); Anion Gap 9.3 mmol/L (4.00-12.00); BUN/Creat Ratio 16.67 Ratio (12.00-20.00); Calcium 9.6 mg/dL (8.7-10.3); Carbon Dioxide 26.7 mmol/L (21.6-31.8); LDL Cholesterol,Calculated 100.8 mg/dL (0.0-131.0); Potassium 4.1 mmol/L (3.5-5.5); Total Bilirubin 0.8 mg/dL (0.2-1.2); Total Protein 6.5 g/dL (6.2-8.2); Uric Acid 5.1 mg/dL (2.9-7.7); VLDL Calculation 18.2 mg/dL (5.00-40.00)
[2018-10-19 17:17] LABS: Hemoglobin A1C 5.3 % (4.0-6.0)
== END | disposition home or self-care (01) ==
LOC: LABWHC1 10:41
PROVIDERS: ATTEND Internal Medicine
DX: I10 Essential (primary) hypertension (principal); E78.2 Mixed hyperlipidemia
CPT/HCPCS: 36415; 80053; 80061; 83036; 84439; 84443; 84550; 85025

== ENCOUNTER → 2019-02-01 | Outpatient (CLI) | payer MEDICARE ==
--- NOTE | 2019-02-01 17:46 | BD ---
EXAMINATION TYPE: Axial Bone Density DATE OF EXAM: 02/01/2019 COMPARISON: 2018 CLINICAL HISTORY: 73-year-old female with disorder of bone density and structure, postmenopausal scre ening Height: 61.5 inches Weight: 144 FRAX RISK QUESTIONS: Alcohol (3 or more units per day): no Family History (Parent hip fracture): no Glucocorticoids (More than 3mos): no (Ex: prednisone, prednisolone, methylprednisolone, dexamethasone, and hydrocortisone). History of Fracture in Adulthood: no Secondary Osteoporosis: 1. Type 1 Diabetes: no 2. Hyperthyroidism: no 3. Menopause before 45: no 4. Malnutrition: no 5. Chronic liver disease: no Rheumatoid Arthritis: no Current Tobacco Use: no RISK FACTORS HISTORY OF: Family History of Osteoporosis: unknown to patient Active: yes Diet low in dairy products/other sources of calcium: servings several times a week; not daily Postmenopausal woman: yes Take estrogen and/or progesterone medications: not now How long: age [age] Lost more than 2 inches in height since high school: not more than Frequent falls: no Poor Health: fair Hyperparathyroidism: no Adrenal Insufficiency: no MEDICATIONS: Prednisone or other steroids: no Thyroid Medications:no Osteoporosis Medications: no Additional Medications: chemo drug , calcium with Vitamin D, Letrozole, Escitalorn, Amlodipine, Losar gallardo, Omeprazole, Alprazolam, Vitamin E Additional History: breast CA with radiation EXAM MEASUREMENTS: Bone mineral densitometry was performed using the [employer] System. Bone mineral density as measured about the Lumbar spine is: ----- L1-L4(G/cm2): 1.021 T Score Values are as follows: ----- L2: -1.6 ----- L3: -0.6 ----- L4: -1.1 ----- L1-L4: -1.3 Bone mineral density has: Decreased -0.6% since study of: 07/18/2017 Bone mineral density about the R hip (g/cm2): 0.793 Bone mineral density about the L hip (g/cm2): 0.805 T Score values are as follows: -----R Neck: -1.8 -----L Neck: -1.7 -----R Total: -1.0 -----L Total: -0.9 Bone mineral density has: Decreased -0.3% since study of: 07/18/2017 IMPRESSION: Osteopenia (T Score between -2.5 and -1). There is slightly increased risk of fracture and the patient may be considered for treatment. Re-Screen 2-5 years. NOTE: T-SCORE=SD OF THE YOUNG ADULT MEAN.
== END | disposition home or self-care (01) ==
LOC: RADBDWWP 09:21
PROVIDERS: ATTEND Internal Medicine Hematology & Oncology
DX: M85.80 Other specified disorders of bone density and structure, unspecified site (principal); C50.912 Malignant neoplasm of unspecified site of left female breast; Z79.890 Hormone replacement therapy
CPT/HCPCS: 77080

== ENCOUNTER → 2019-02-15 | Outpatient (CLI) | payer MEDICARE ==
[~2019-02-15] MED LIST changes: -LACTATED RINGERS 1,000 ML IV SCH; +REGADENOSON 0.4 MG/5 ML SYRINGE IV ONE
--- NOTE | 2019-02-15 11:43 | NM ---
EXAMINATION TYPE: NM stress lexiscan cardiolite DATE OF EXAM: 02/15/2019 COMPARISON: 12/30/2016 HISTORY: 73-year-old female with abnormal EKG, chest pain, difficulty breathing, palpitations, hypert ension, 40 year smoking history, COPD TECHNIQUE: After the intravenous administration of 10.85 mCi Tc 99m Sestamibi - Cardiolite resting S PECT images acquired 50 minutes post injection. The patient received 0.4mg Lexiscan, 25 mCi Tc 99m Sestamibi - Stress images obtained 60 minutes post injection FINDINGS: Review of stress and rest SPECT images demonstrates decreased perfusion along the mid to apical infer oseptal wall on stress imaging. Prominent adjacent GI activity is present. Slight decreased perfusion along the mid anterior wall as well on stress, possible attenuation artifact as there is no correlat e on the polar maps. Gated analysis shows normal wall motion with an estimated left ventricular eject ion fraction of 55 %. TID is calculated at 1.06, within normal limits. IMPRESSION: 1. Possible reversibility along the mid to apical inferoseptal wall. Prominent adjacent GI activity l imits assessment. 2. Second area of reversibility along the mid anterior wall favored to represent attenuation artifact as there is no correlate on the polar maps. Further clinical correlation recommended. 3. Borderline LVEF of 55%.
--- NOTE | 2019-02-15 15:18 | EST ---
EXERCISE STRESS AGE: @@ SEX: M HT: 61" WT: 145 PROTOCOL: Lexiscan STAGE: DURATION OF EXERCISE: HEART RATE REST: 60 BLOOD PRESSURE REST: 154/76 MAXIMUM HEART RATE ACHIEVED: 80 MAXIMUM BLOOD PRESSURE: 164/76 85% MPHR: 123 100% MPHR: 145 METS: INDICATIONS: Abnormal EKG. RESULTS: Baseline EKG revealed normal sinus rhythm, inferolateral ST abnormality, poor R-wave progression. With Lexiscan administration, heart rate changed from 60-78 beats per minute. Blood pressure changed from 164/76, 144/58, 164/76. EKG remained inconclusive. The patient had shortness of breath that was transient. By EKG criteria, this is an inconclusive Lexiscan stress test because of resting EKG changes. The nuclear scan results which are more pertinent, will be reported by the radiologist. KENDAL / EBONYN: [id number] /
== END | disposition home or self-care (01) ==
LOC: RADNMMAIN 08:07
PROVIDERS: ATTEND Internal Medicine
DX: R07.9 Chest pain, unspecified (principal)
CPT/HCPCS: 93017; 78452; A9500; J2785

== ENCOUNTER → 2019-02-26 | Day surgery (SDC) | payer MEDICARE ==
[2019-02-24 14:19] VITALS: BMI 27.3
[~2019-02-26] MED LIST changes: +ALPRAZolam 0.25 MG TAB PO ONE; +ALPRAZolam 0.25 MG TAB PO PRN; +ALPRAZolam 0.5 MG TAB PO PRN; +ASPIRIN 325 MG TAB PO ONE; +ATORVASTATIN 80 MG TAB PO ONE; +IOPAMIDOL-370 100ML BTL INJ ONE; +LIDOCAINE 1% INJ 10MG/ML (20 ML MDV) ONE; +LIDOCAINE 1% INJ 10MG/ML (20 ML MDV) SQ ONE; +LOSARTAN-HCTZ 50-12.5 MG 1 EACH TAB PO SCH; +MIDAZOLAM 2 MG/2 ML VIAL IV ONE; +NITROGLYCERIN SL TABS 0.4 MG TAB SUBLINGUAL PRN; -REGADENOSON 0.4 MG/5 ML SYRINGE IV ONE; +RX INFO: IV CONTRAST WAS GIVEN 1 EACH MISC MISCELLANE PRN; +SODIUM CHLORIDE 0.9% 1,000 ML in EMPTY BAG 1 BAG IV ONE; +fentaNYL (PF) 50 MCG/ML 2 ML AMP IV ONE; +fentaNYL (PF) 50 MCG/ML 2 ML AMP ONE
[2019-02-26 07:08] VITALS: RESP 18; TEMP 98.2
--- NOTE | 2019-02-26 08:26 | CC ---
CARDIAC CATHETERIZATION REPORT INDICATION: Chest tightness with abnormal stress test showing ischemia involving the inferoseptal wall. PROCEDURE NOTE: After obtaining informed consent, left heart catheterization and coronary angiogram were performed via the right femoral artery using standard Sommer catheters. Patient tolerated the procedure well without any obvious immediate complications. A femoral angiogram was performed and Angio-Seal was deployed for hemostasis FINDINGS: 1. HEMODYNAMICS: Left ventricular end-diastolic pressure is 8 to 12 mm. There is no significant gradient across the aortic valve. 2. LEFT VENTRICULOGRAM: Left ventriculogram is not performed. 3. ANGIOGRAPHIC DATA: Left Main Coronary Artery: Left main coronary artery is a normal-sized vessel and is free of stenosis. Divides into left anterior descending coronary artery and circumflex coronary artery. LAD and its branches, circumflex coronary artery and its branches are free of significant stenosis. Circumflex coronary artery is a large dominant vessel. Right Coronary Artery: Right coronary artery is a small nondominant vessel and is free of significant disease. CONCLUSIONS: 1. Normal left ventricular end-diastolic pressure. 2. Normal coronaries. PLAN: Patient's chest discomfort seems to be noncardiac in origin. The stress test is a false positive stress test. I reviewed this information with the patient and told her that her management is going to be in the form of risk factor modification. MMODL / IJN: [id number] /
[2019-02-26 13:23] VITALS: BP 118/65; PULSE 74
== END ==
LOC: CATHCVL 06:37
PROVIDERS: ATTEND Internal Medicine Cardiovascular Disease
DX: R94.39 Abnormal result of other cardiovascular function study (principal); R07.89 Other chest pain; R00.2 Palpitations; R06.02 Shortness of breath; I10 Essential (primary) hypertension; F17.210 Nicotine dependence, cigarettes, uncomplicated; E78.5 Hyperlipidemia, unspecified; Z82.49 Family history of ischemic heart disease and other diseases of the circulatory system; Z79.899 Other long term (current) drug therapy
CPT/HCPCS: 93458; C1760; C1769; J2250; J2001; J3010; Q9967

== ENCOUNTER → 2019-04-26 | Outpatient (CLI) | payer MEDICARE ==
--- NOTE | 2019-04-26 10:59 | MM ---
Reason for exam: follow-up at short interval from prior study. Last mammogram was performed 6 months ago. History: Patient is postmenopausal and has history of breast cancer at age 71. Family history of breast cancer at age 40. Benign US breast aspiration ea add LT of the left breast, October 24, 2017. Benign US biopsy breast VAD LT of the left breast, October 24, 2017. Radiation therapy of the left breast, April 2017. US breast localization LT, February 24, 2017. Lumpectomy of the left breast, February 24, 2017. Malignant US biopsy breast VAD LT of the left breast, January 23, 2017. US discontinued breast bx LT of the left breast, January 17, 2017. Benign excisional biopsy of the left breast, 1970. Took estrogen for 10 years beginning at age 46. Took progesterone for 10 years beginning at age 46. Taking antineoplastic for 2 years beginning at age 71. Physical Findings: Nurse Summary: 1cm nodule in the left breast at the nipple, a 1cm nodule in the left breast at 1:30 and a 2cm nodule in the left breast at axilla (nurse dw). MG 3D Diag Mammo W/Cad LT CC, MLO, and XCCL view(s) were taken of the left breast. Prior study comparison: October 19, 2018, bilateral MG 3d diag mammo w/cad REYES. October 24, 2017, left breast MG diagnostic mammo LT wo CAD. The breast tissue is heterogeneously dense. This may lower the sensitivity of mammography. There are 3 masses deep to the palpable BB markers. One corresponds to the biozorb from prior lumpectomy, one to a prior biopsy site and another stable mass from 2018 but new from 2017, all on the left. Post therapy change on the left. These results were verbally communicated with the patient and result sheet given to the patient on 04/26/19. ASSESSMENT: Incomplete: need additional imaging evaluation, BI-RAD 0 RECOMMENDATION: Ultrasound of the left breast. (palpable)
--- NOTE | 2019-04-26 11:01 | USB ---
Reason for exam: additional evaluation requested from abnormal screening. History: Patient is postmenopausal and has history of breast cancer at age 71. Family history of breast cancer at age 40. Benign US breast aspiration ea add LT of the left breast, October 24, 2017. Benign US biopsy breast VAD LT of the left breast, October 24, 2017. Radiation therapy of the left breast, April 2017. US breast localization LT, February 24, 2017. Lumpectomy of the left breast, February 24, 2017. Malignant US biopsy breast VAD LT of the left breast, January 23, 2017. US discontinued breast bx LT of the left breast, January 17, 2017. Benign excisional biopsy of the left breast, 1970. Took estrogen for 10 years beginning at age 46. Took progesterone for 10 years beginning at age 46. Taking antineoplastic for 2 years beginning at age 71. US Breast LT Left complete breast ultrasound includes all four quadrants, the retroareolar region and axilla. Finding demonstrates a 1.3 x 0.5 x 1.3cm hypoechoic lesion at 12 o'clock possible lobule, a 1.1 x 0.4 x 1.1cm hypoechoic lesion at 12:30, prior 1.2 x 0.4 x 1.6cm, no interval growth and a biozorb at 1 o'clock BB. These results were verbally communicated with the patient and result sheet given to the patient on 04/26/19. ASSESSMENT: Probably benign, BI-RAD 3 RECOMMENDATION: Follow-up diagnostic mammogram of both breasts in 6 months. Ultrasound of the left breast in 6 months.
== END | disposition home or self-care (01) ==
LOC: RADMAMWWP 09:02
PROVIDERS: ATTEND Surgery
DX: R92.8 Other abnormal and inconclusive findings on diagnostic imaging of breast (principal)
CPT/HCPCS: 77065; 76641; G0279; 77061

== ENCOUNTER → 2019-04-26 | Outpatient (CLI) | payer MEDICARE ==
--- NOTE | 2019-04-26 13:52 | CT ---
EXAMINATION TYPE: CT abdomen pelvis w con DATE OF EXAM: 04/26/2019 HISTORY: Pelvic pain with history of breast cancer CT DLP: 579mGycm Automated Exposure Control for Dose Reduction was Utilized. CONTRAST: CT scan of the abdomen and pelvis is performed with IV Contrast, patient injected with 100 mL of Isov ue 300. COMPARISON: CT abdomen and pelvis December 02, 2013 FINDINGS: LUNG BASES: Medial left basilar linear scarring and/or atelectasis. Slightly increased prominence of left lower thoracic perivertebral fat. LIVER/GB: No significant abnormality is appreciated. PANCREAS: No significant abnormality is seen. SPLEEN: No significant abnormality is seen. ADRENALS: No significant abnormality is seen. KIDNEYS: Some cortical lobulation in both kidneys. Symmetric uptake and excretion without hydronephro sis noted. BOWEL: Oral contrast reaches level of the proximal left colon. No suspicious small and large bowel di latation. Patient is very little intra-abdominal fat making evaluation slightly suboptimal. Prominent diverticulosis of the left and sigmoid colon without CT evidence for acute diverticulitis. UTERUS/ADNEXA: Anteverted uterus projects to right of midline. LYMPH NODES: No greater than 1cm abdominal or pelvic lymph nodes are appreciated. OSSEOUS STRUCTURES: Redemonstration of extra convex scoliosis centered at L2 level. Redemonstration o f moderate to severe multilevel disc space narrowing and vacuum disc phenomenon L2-L3 through the L5- S1 levels. Moderate narrowing of both hip joints redemonstrated with acetabular spurring and subchond ral cystic change. OTHER: No significant additional abnormality is seen. IMPRESSION: Persistent prominent sigmoid colonic diverticulosis without CT evidence for acute diverti culitis. No suspicious new or acute findings seen to account for patient's symptoms of pelvic pain.
== END | disposition home or self-care (01) ==
LOC: RADCTMAIN 10:57
PROVIDERS: ATTEND Internal Medicine
DX: K57.30 Diverticulosis of large intestine without perforation or abscess without bleeding (principal)
CPT/HCPCS: 82565; 84520; 74177; 36415; Q9967

== ENCOUNTER → 2019-08-25 | Outpatient (CLI) | payer MEDICARE | END | disposition home or self-care (01) | LOC: LABWHC1 08:33 | PROVIDERS: ATTEND Internal Medicine | DX: R50.9 Fever, unspecified (principal); R05 Cough; Z20.828 Contact with and (suspected) exposure to other viral communicable diseases | CPT/HCPCS: 87635 ==

== ENCOUNTER → 2019-10-26 | Outpatient (CLI) | payer MEDICARE ==
--- NOTE | 2019-10-26 10:04 | MM ---
Reason for exam: follow-up at short interval from prior study. Last mammogram was performed 6 months ago. History: Patient is postmenopausal and has history of breast cancer at age 71. Family history of breast cancer at age 40. Benign US breast aspiration ea add LT of the left breast, October 24, 2017. Benign US biopsy breast VAD LT of the left breast, October 24, 2017. Radiation therapy of the left breast, April 2017. US breast localization LT, February 24, 2017. Lumpectomy of the left breast, February 24, 2017. Malignant US biopsy breast VAD LT of the left breast, January 23, 2017. US discontinued breast bx LT of the left breast, January 17, 2017. Benign excisional biopsy of the left breast, 1970. Took estrogen for 10 years beginning at age 46. Took progesterone for 10 years beginning at age 46. Taking antineoplastic for 2 years beginning at age 71. Physical Findings: Nurse Summary: 1cm nodule in the left breast at 12 o'clock, 2cm nodule in the left breast at 1 o'clock (nurse mj). MG 3D Diag Mammo W/Cad REYES Bilateral CC and MLO view(s) were taken. Prior study comparison: April 26, 2019, left breast MG 3d diag mammo w/cad LT. October 19, 2018, bilateral MG 3d diag mammo w/cad REYES. The breast tissue is extremely dense which could obscure a lesion on mammography. Previous mammotome biopsy in the left breast. Focal asymmetry medial anterior left CC, corresponds and not on ML. No significant new findings when compared with previous films. These results were verbally communicated with the patient and result sheet given to the patient on 10/26/19. ASSESSMENT: Benign, BI-RAD 2 RECOMMENDATION: Follow-up diagnostic mammogram of both breasts in 1 year.
--- NOTE | 2019-10-26 10:06 | USB ---
Reason for exam: follow-up at short interval from prior study. History: Patient is postmenopausal and has history of breast cancer at age 71. Family history of breast cancer at age 40. Benign US breast aspiration ea add LT of the left breast, October 24, 2017. Benign US biopsy breast VAD LT of the left breast, October 24, 2017. Radiation therapy of the left breast, April 2017. US breast localization LT, February 24, 2017. Lumpectomy of the left breast, February 24, 2017. Malignant US biopsy breast VAD LT of the left breast, January 23, 2017. US discontinued breast bx LT of the left breast, January 17, 2017. Benign excisional biopsy of the left breast, 1970. Took estrogen for 10 years beginning at age 46. Took progesterone for 10 years beginning at age 46. Taking antineoplastic for 2 years beginning at age 71. US Breast LT Left complete breast ultrasound includes all four quadrants, the retroareolar region and axilla. Finding demonstrates a 1.2 x 1.4 x 0.4cm hypoechoic, stable lesion at 12 o'clock, a 0.9 x 0.9 x 0.3cm hypoechoic, stable lesion at 1 o'clock and a 2.4 x 1.4 x 1.2cm biozorb at 1 o'clock. These results were verbally communicated with the patient and result sheet given to the patient on 10/26/19. ASSESSMENT: Probably benign, BI-RAD 3 RECOMMENDATION: Ultrasound of the left breast in 6 months.
== END | disposition home or self-care (01) ==
LOC: RADMAMWWP 08:18
PROVIDERS: ATTEND Surgery
DX: R92.8 Other abnormal and inconclusive findings on diagnostic imaging of breast (principal)
CPT/HCPCS: 77066; 76641; G0279; 77062

== ENCOUNTER → 2019-12-09 | Outpatient (CLI) | payer MEDICARE ==
--- NOTE | 2019-12-09 09:05 | US ---
EXAMINATION TYPE: US kidneys/renal and bladder DATE OF EXAM: 12/09/2019 COMPARISON: NONE CLINICAL HISTORY: 74-year-old female N18.3 CKD3. TECHNIQUE: Multiple sonographic images of the kidneys and bladder are obtained. FINDINGS: EXAM MEASUREMENTS: Right Kidney: 8.7 x 3.5 x 3.1 cm Left Kidney: 8.2 x 4.0 x 4.0 cm No hydronephrosis on either side. Bladder: Partial distention of the bladder limits its evaluation. Bilateral Jets seen: Yes IMPRESSION: No hydronephrosis.
[2019-12-09 09:16] LABS: Albumin 4.4 g/dL (3.5-5.0); Basophils # (A) 0.1 k/uL (0-0.2); Basophils % (A) 2 %; Calcium 9.4 mg/dL (8.4-10.2); Eosinophils # (A) 0.3 k/uL (0-0.7); Eosinophils % (A) 9 %; HCT 39.1 % (34.0-46.0); HGB 12.9 gm/dL (11.4-16.0); Lymphocytes # (A) 0.9 k/uL (1.0-4.8); Lymphocytes % (A) 23 %; MCH 31.4 pg (25.0-35.0); MCHC 33.1 g/dL (31.0-37.0); MCV 94.9 fL (80.0-100.0); Mean Platelet Volume 8.2; Monocytes # (A) 0.3 k/uL (0-1.0); Monocytes % (A) 7 %; Neutrophils # (A) 2.2 k/uL (1.3-7.7); Neutrophils % (A) 58 %; Platelet Count 219 k/uL (150-450); Potassium 3.9 mmol/L (3.5-5.1); RBC 4.12 m/uL (3.80-5.40); RDW 12.3 % (11.5-15.5); Total Bilirubin 0.9 mg/dL (0.2-1.3); Total Protein 6.9 g/dL (6.3-8.2); WBC 3.7 k/uL (3.8-10.6)
--- NOTE | 2019-12-09 11:28 | CT ---
EXAMINATION TYPE: CT abdomen pelvis w con DATE OF EXAM: 12/09/2019 HISTORY: LLQ pain CT DLP: 498.1mGycm Automated Exposure Control for Dose Reduction was Utilized. CONTRAST: CT scan of the abdomen and pelvis is performed with IV Contrast, patient injected with 100 mL of Isov ue 300. COMPARISON: CT abdomen and pelvis April 26, [address] 2014. FINDINGS: LUNG BASES: Small diaphragmatic hernia defect containing intra-abdominal fat posterior medial left sarah ng base axial images 9 and 10 redemonstrated. Stable mild adjacent left basilar linear scarring and/o r atelectasis. LIVER/GB: No significant abnormality is appreciated. PANCREAS: No significant abnormality is seen. SPLEEN: No significant abnormality is seen. ADRENALS: Stable slight asymmetric thickening to left adrenal gland consistent with benign lipid rich hyperplasia unchanged from 2015 study. KIDNEYS: Symmetric cortical medullary uptake and excretion without hydronephrosis seen bilaterally. S ome lobulation to renal cortex redemonstrated. Circumaortic left renal vein which is normal variant. BOWEL: Oral contrast reaches level of rectum. No suspicious small or large bowel dilatation. Scattere d colonic diverticula most prominent in the left and sigmoid colon. No convincing CT evidence for acu te diverticulitis. UTERUS/ADNEXA: Anteverted uterus projects to right of midline. No suspicious adnexal masses. Scattere d pelvic phleboliths bilaterally. LYMPH NODES: No greater than 1cm abdominal or pelvic lymph nodes are appreciated. OSSEOUS STRUCTURES: Dextroconvex scoliosis centered at L2 level redemonstrated. Multilevel moderate t o advanced disc space narrowing and vacuum disc phenomenon L2-L3 through the L5-S1 levels in the spin e. Multilevel spurring and facet arthropathy greatest lower lumbar levels. Moderate narrowing and spu rring in both hip joints.. OTHER: No significant additional abnormality is seen. IMPRESSION: Redemonstration of severe diverticulosis throughout the left and sigmoid colon without co nvincing CT evidence for acute diverticulitis. No suspicious new or acute findings seen to account fo r patient's symptoms of left lower quadrant pain.
[2019-12-09 18:44] LABS: Hemoglobin A1C 5.2 % (4.0-6.0)
== END | disposition home or self-care (01) ==
LOC: RADUSWWP 07:37
PROVIDERS: ATTEND Internal Medicine
DX: K57.30 Diverticulosis of large intestine without perforation or abscess without bleeding (principal); N18.3 Chronic kidney disease, stage 3 (moderate); I10 Essential (primary) hypertension; E78.2 Mixed hyperlipidemia; F32.9 Major depressive disorder, single episode, unspecified
CPT/HCPCS: 80061; 80053; 84443; 85025; 83036; 76770; 74177; 36415; Q9967

== ENCOUNTER 2020-01-17 20:57 | Observation (INO) | payer MEDICARE ==
--- NOTE | 2020-01-17 22:35 | ED ---
Dizziness HPI - General Chief Complaint: Syncope Stated Complaint: syncope Time Seen by Provider: 01/17/20 21:10 Source: patient, EMS - History of Present Illness Initial Comments: 74-year-old female past history of hypertension, hyperlipidemia who presents emergency room after she had a syncopal episode. Patient reports that she was getting ready to go to work. 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 Reports that when they pulled up to her job that she was feeling extremely lightheaded. She attempted to going to work where she ended up passing out. She called out to her daughters before she did. Denies having chest pain or shortness of breath previous to the episode. Her daughters were able to catch her and lowered her to the ground. Upon attempting to get the patient up again she did swipe her right forehead against a counter. She has had a headache for the past several days. It was sinus induced. Denies any vision changes. Denies any unilateral numbness or weakness. No fevers or chills. No recent medication changes. Reports a history of a cardiac murmur however denies other coronary disease. No other alleviating, precipitating or modifying factors - Related Data Home Medications Medication Instructions Recorded Confirmed ALPRAZolam [Xanax] 0.375 tab PO HS 12/03/14 01/17/20 Cholecalciferol [Vitamin D3 (25 1,000 unit PO DAILY 12/03/14 01/17/20 Mcg = 1000 Iu)] HYDROcodone/APAP 5-325MG [Tama 1 tab PO Q12HR PRN 12/03/14 01/17/20 5-325] Omeprazole 40 mg PO DAILY 12/03/14 01/17/20 Losartan/Hydrochlorothiazide 1 tab PO DAILY 01/12/16 01/17/20 [Hyzaar 100-25 Tablet] Letrozole 2.5 mg PO DAILY 10/16/17 01/17/20 Calcium Carbonate/Vitamin D3 1 tab PO DAILY 02/24/19 01/17/20 [Calcium 600-Vit D3 400 Tablet] Ferrous Sulfate [Iron (65 MG 325 mg PO DAILY 02/24/19 01/17/20 Elemental)] Rosuvastatin [Crestor] 20 mg PO DAILY 02/24/19 01/17/20 Escitalopram [Lexapro] 10 mg PO DAILY 01/17/20 01/17/20 Metoprolol Succinate [Toprol XL] 25 mg PO DAILY 01/17/20 01/17/20 amLODIPine [Norvasc] 10 mg PO DAILY 01/17/20 01/17/20 Allergies Allergy/AdvReac Type Severity Reaction Status Date / Time adhesive tape Allergy Rash/Hives Verified 01/17/20 21:33 Review of Systems ROS Statement: Those systems with pertinent positive or pertinent negative responses have been documented in the HPI. ROS Other: All systems not noted in ROS Statement are negative. Past Medical History Past Medical History: Cancer, Hyperlipidemia, Hypertension, Osteoarthritis (OA) Additional Past Medical History / Comment(s): SOB w/exertion, has been sleeping alot recently, hx. breast cancer 2017 w/surgery & radiation History of Any Multi-Drug Resistant Organisms: None Reported Past Surgical History: Breast Surgery, Joint Replacement Additional Past Surgical History / Comment(s): left total knee replacement., lumpectomy left breast Past Anesthesia/Blood Transfusion Reactions: No Reported Reaction Past Psychological History: Anxiety, Depression Smoking Status: Former smoker Past Alcohol Use History: Rare Past Drug Use History: None Reported - Past Family History Brother(s) Family Medical History: Coronary Artery Disease (CAD) Sister(s) Family Medical History: Coronary Artery Disease (CAD) Daughter(s) Family Medical History: No Reported History Son(s) Family Medical History: No Reported History Father Family Medical History: CVA/TIA (Father at the age of 51 of CVA.) Mother Family Medical History: Cancer General Exam General appearance: alert, in no apparent distress Head exam: Present: atraumatic, normocephalic, normal inspection Eye exam: Present: normal appearance, PERRL, EOMI. Absent: scleral icterus, conjunctival injection, periorbital swelling ENT exam: Present: normal exam, mucous membranes moist Neck exam: Present: normal inspection. Absent: tenderness, meningismus, lymphadenopathy Respiratory exam: Present: normal lung sounds bilaterally. Absent: respiratory distress, wheezes, rales, rhonchi, stridor Cardiovascular Exam: Present: regular rate, normal rhythm, normal heart sounds. Absent: systolic murmur, diastolic murmur, rubs, gallop, clicks GI/Abdominal exam: Present: soft, normal bowel sounds. Absent: distended, tenderness, guarding, rebound, rigid Extremities exam: Present: normal inspection, full ROM, normal capillary refill. Absent: tenderness, pedal edema, joint swelling, calf tenderness Back exam: Present: normal inspection Neurological exam: Present: alert, oriented X3, CN II-XII intact Psychiatric exam: Present: normal affect, normal mood Skin exam: Present: warm, dry, intact, normal color. Absent: rash Course Vital Signs 01/17/20 01/17/20 01/17/20 21:06 22:00 23:00 Temperature 98.0 F Pulse Rate 108 H 101 H 85 Respiratory 19 16 16 Rate Blood Pressure 145/84 163/96 138/80 O2 Sat by Pulse 99 98 98 Oximetry 01/18/20 01/18/20 00:00 00:39 Temperature 98.1 F Pulse Rate 85 86 Respiratory 16 16 Rate Blood Pressure 134/91 134/88 O2 Sat by Pulse 96 Oximetry EKG Findings - EKG Comments: EKG Findings:: EKG demonstrates normal sinus rhythm with a ventricular rate of 96. VA interval 132. QRS 116. QTC of 45. No acute ST segment elevations. Right bundle branch block present. ST depression 1 and aVL, v1-V6. Medical Decision Making - Medical Decision Making Upon arrival the patient is placed into room 2. A through history and physical exam is performed. 12 lead EKG was performed. Laboratory studies were conduct ed. Chest x-rays performed. Upon return results there discuss the patient. I did recommend hospital admission for carotid Dopplers and an echo. Patient agreed to this. Discussed case with Dr. Rocha who accept admission for the patient. She was transferred to the floor in stable condition - Lab Data Result diagrams: 01/18/20 04:36 01/18/20 04:36 Lab Results 01/17/20 01/17/20 01/17/20 Range/Units 22:29 22:29 22:29 WBC 7.8 (3.8-10.6) k/uL RBC 4.00 (3.80-5.40) m/uL Hgb 13.0 (11.4-16.0) gm/dL Hct 38.5 (34.0-46.0) % MCV 96.2 (80.0-100.0) fL MCH 32.6 (25.0-35.0) pg MCHC 33.9 (31.0-37.0) g/dL RDW 12.0 (11.5-15.5) % Plt Count 238 (150-450) k/uL Neutrophils % 83 % Lymphocytes % 10 % Monocytes % 4 % Eosinophils % 2 % Basophils % 1 % Neutrophils # 6.5 (1.3-7.7) k/uL Lymphocytes # 0.8 L (1.0-4.8) k/uL Monocytes # 0.3 (0-1.0) k/uL Eosinophils # 0.1 (0-0.7) k/uL Basophils # 0.1 (0-0.2) k/uL PT 9.7 (9.0-12.0) sec INR 0.9 (<1.2) APTT 23.1 (22.0-30.0) sec Sodium (137-145) mmol/L Potassium (3.5-5.1) mmol/L Chloride (98-107) mmol/L Carbon Dioxide (22-30) mmol/L Anion Gap mmol/L BUN (7-17) mg/dL Creatinine (0.52-1.04) mg/dL Est GFR (CKD-EPI)AfAm (>60 ml/min/1.73 sqM) Est GFR (CKD-EPI)NonAf (>60 ml/min/1.73 sqM) Glucose (74-99) mg/dL Calcium (8.4-10.2) mg/dL Total Bilirubin (0.2-1.3) mg/dL AST (14-36) U/L ALT (4-34) U/L Alkaline Phosphatase (38-126) U/L Troponin I (0.000-0.034) ng/mL Total Protein (6.3-8.2) g/dL Albumin (3.5-5.0) g/dL Urine Color Colorless Urine Appearance Clear (Clear) Urine pH 7.0 (5.0-8.0) Ur Specific Raven[place] 1.004 (1.001-1.035) Urine Protein Negative (Negative) Urine Glucose (UA) Negative (Negative) Urine Ketones Negative (Negative) Urine Blood Negative (Negative) Urine Nitrite Negative (Negative) Urine Bilirubin Negative (Negative) Urine Urobilinogen <2.0 (<2.0) mg/dL Ur Leukocyte Esterase Trace H (Negative) Urine RBC <1 (0-5) /hpf Urine WBC 2 (0-5) /hpf 10/05/20 10/05/20 Range/Units 22:29 22:29 WBC (3.8-10.6) k/uL RBC (3.80-5.40) m/uL Hgb (11.4-16.0) gm/dL Hct (34.0-46.0) % MCV (80.0-100.0) fL MCH (25.0-35.0) pg MCHC (31.0-37.0) g/dL RDW (11.5-15.5) % Plt Count (150-450) k/uL Neutrophils % % Lymphocytes % % Monocytes % % Eosinophils % % Basophils % % Neutrophils # (1.3-7.7) k/uL Lymphocytes # (1.0-4.8) k/uL Monocytes # (0-1.0) k/uL Eosinophils # (0-0.7) k/uL Basophils # (0-0.2) k/uL PT (9.0-12.0) sec INR (<1.2) APTT (22.0-30.0) sec Sodium 138 (137-145) mmol/L Potassium 3.6 (3.5-5.1) mmol/L Chloride 106 (98-107) mmol/L Carbon Dioxide 25 (22-30) mmol/L Anion Gap 7 mmol/L BUN 22 H (7-17) mg/dL Creatinine 0.80 (0.52-1.04) mg/dL Est GFR (CKD-EPI)AfAm 83 (>60 ml/min/1.73 sqM) Est GFR (CKD-EPI)NonAf 72 (>60 ml/min/1.73 sqM) Glucose 128 H (74-99) mg/dL Calcium 9.6 (8.4-10.2) mg/dL Total Bilirubin 0.7 (0.2-1.3) mg/dL AST 27 (14-36) U/L ALT 17 (4-34) U/L Alkaline Phosphatase 90 (38-126) U/L Troponin I <0.012 (0.000-0.034) ng/mL Total Protein 7.0 (6.3-8.2) g/dL Albumin 4.4 (3.5-5.0) g/dL Urine Color Urine Appearance (Clear) Urine pH (5.0-8.0) Ur Specific [place] (1.001-1.035) Urine Protein (Negative) Urine Glucose (UA) (Negative) Urine Ketones (Negative) Urine Blood (Negative) Urine Nitrite (Negative) Urine Bilirubin (Negative) Urine Urobilinogen (<2.0) mg/dL Ur Leukocyte Esterase (Negative) Urine RBC (0-5) /hpf Urine WBC (0-5) /hpf Disposition Clinical Impression: Syncope Disposition: ADMITTED IP TO THIS [facility] Condition: Stable Is patient prescribed a controlled substance at d/c from ED?: No Decision to Admit Reason: Admit from EC Decision Date: 01/17/20 Decision Time: 23:36
[2020-01-17 22:38] LABS: Basophils # (A) 0.1 k/uL (0-0.2); Basophils % (A) 1 %; Eosinophils # (A) 0.1 k/uL (0-0.7); Eosinophils % (A) 2 %; HCT 38.5 % (34.0-46.0); Lymphocytes # (A) 0.8 k/uL (1.0-4.8); Lymphocytes % (A) 10 %; MCH 32.6 pg (25.0-35.0); MCHC 33.9 g/dL (31.0-37.0); MCV 96.2 fL (80.0-100.0); Mean Platelet Volume 7.6; Monocytes # (A) 0.3 k/uL (0-1.0); Monocytes % (A) 4 %; Neutrophils # (A) 6.5 k/uL (1.3-7.7); Neutrophils % (A) 83 %; Platelet Count 238 k/uL (150-450); WBC 7.8 k/uL (3.8-10.6)
[2020-01-17 22:43] LABS: Albumin 4.4 g/dL (3.5-5.0); Appearance,Urine Clear (Clear); Bilirubin,Urine Negative (Negative); Blood,Urine Negative (Negative); Calcium 9.6 mg/dL (8.4-10.2); Color,Urine Colorless; Glucose,Urine (UA) Negative (Negative); Ketones,Urine Negative (Negative); Leukocyte Esterase,Urine Trace (Negative); Nitrite,Urine Negative (Negative); Potassium 3.6 mmol/L (3.5-5.1); Protein,Urine Negative (Negative); RBC,Urine <1 /hpf (0-5); Specific Gravity,Urine 1.004 (1.001-1.035); Total Bilirubin 0.7 mg/dL (0.2-1.3); Urobilinogen,Urine <2.0 mg/dL (<2.0); WBC,Urine 2 /hpf (0-5)
[2020-01-17 22:59] LABS: INR 0.9 (<1.2); Partial Thromboplastin Time 23.1 sec (22.0-30.0); Prothrombin Time 9.7 sec (9.0-12.0)
--- NOTE | 2020-01-17 23:10 | XR ---
EXAMINATION TYPE: XR chest 2V DATE OF EXAM: 01/17/2020 COMPARISON: 07/12/2015 HISTORY: Syncope TECHNIQUE: FINDINGS: There is no heart failure nor confluent pneumonic infiltrate. There are some juan over t he left side chest wall. There are no hilar masses. There are chest leads. Heart size is fairly sean l. The bony thorax is intact. There is no evidence of pleural effusion. IMPRESSION: Previous surgery. No active cardiopulmonary disease. Heart and lungs not significantly di fferent than old exam.
[2020-01-17] MEDS ORDERED: NALOXONE 0.4 MG/ML 1 ML VIAL IV PRN (23:36)
[2020-01-17] MEDS ORDERED: HYDROcodone/APAP 5-325MG 1 EACH TAB PO PRN (23:38)
[2020-01-17] MEDS ORDERED: ALPRAZolam 0.25 MG TAB PO SCH (23:45)
[2020-01-18 04:52] LABS: Basophils # (A) 0.1 k/uL (0-0.2); Basophils % (A) 1 %; Eosinophils # (A) 0.3 k/uL (0-0.7); Eosinophils % (A) 6 %; HCT 35.7 % (34.0-46.0); HGB 12.3 gm/dL (11.4-16.0); Lymphocytes # (A) 1.3 k/uL (1.0-4.8); Lymphocytes % (A) 30 %; MCH 33.3 pg (25.0-35.0); MCHC 34.4 g/dL (31.0-37.0); MCV 96.7 fL (80.0-100.0); Mean Platelet Volume 7.6; Monocytes # (A) 0.3 k/uL (0-1.0); Monocytes % (A) 8 %; Neutrophils # (A) 2.2 k/uL (1.3-7.7); Neutrophils % (A) 54 %; Platelet Count 217 k/uL (150-450); RDW 12.2 % (11.5-15.5); WBC 4.2 k/uL (3.8-10.6)
[2020-01-18 05:07] LABS: African American GFR (CKD) >90 (>60 ml/min/1.73 sqM); Anion Gap 5 mmol/L; Blood Urea Nitrogen 17 mg/dL (7-17); Calcium 9.2 mg/dL (8.4-10.2); Carbon Dioxide 24 mmol/L (22-30); Chloride 109 mmol/L (98-107); Glucose 101 mg/dL (74-99); Non-African American GFR(CKD) 82 (>60 ml/min/1.73 sqM); Sodium 138 mmol/L (137-145)
[2020-01-18 05:08] LABS: Potassium 3.7 mmol/L (3.5-5.1)
[2020-01-18] MEDS ORDERED: PANTOPRAZOLE 40 MG TABLET PO SCH (07:30)
[2020-01-18 08:07] VITALS: TEMP 98
--- NOTE | 2020-01-18 08:25 | US ---
EXAMINATION TYPE: US carotid duplex BILAT DATE OF EXAM: 01/18/2020 COMPARISON: NONE CLINICAL HISTORY: syncope, also lightheadedness per patient EXAM MEASUREMENTS: RIGHT: Peak Systolic Velocity (PSV) cm/sec ----- Right CCA: 75.5 ----- Right ICA: 64.8 ----- Right ECA: 54.4 ICA/CCA ratio: 0.9 RIGHT: End Diastole cm/sec ----- Right CCA: 27.5 ----- Right ICA: 22.1 ----- Right ECA: 6.4 LEFT: Peak Systolic Velocity (PSV) cm/sec ----- Left CCA: 61.2 ----- Left ICA: 75.6 ----- Left ECA: 59.0 ICA/CCA ratio: 1.2 LEFT: End Diastole cm/sec ----- Left CCA: 14.9 ----- Left ICA: 19.7 ----- Left ECA: 7.4 VERTEBRALS (direction of flow): Right Vertebral: Antegrade Left Vertebral: Antegrade Rhythm: Normal Moderate carotid bifurcation shadowing, wall plaque seen bilaterally, but PSV is wnl bilaterally. IMPRESSION: Intimal thickening and plaquing without significant flow-limiting stenosis. Criteria for Assigning % of Stenosis / Diameter reduction (Estimation based on the indirect measurements of the internal carotid artery velocities (ICA PSV). 1. Normal (no stenosis)=ICA PSV < 125 cm/s: ratio < 2.0: ICA EDV<40 cm/s. 2. Less than 50% stenosis=ICA PSV < 125 cm/s: ratio < 2.0: ICA EDV<40 cm/s. 3. 50 to 69% stenosis=ICA PSV of 125 to 230 cm/s: ration 2.0 ? 4.0: ICA EDV 40-100 cm/s. 4. Greater than 70% stenosis to near occlusion= ICA PSV > 230 cm/s: ratio > 4.0: ICA EDV > 100 cm/s. 5. Near occlusion= ICA PSV velocities may be low or undetectable: variable ratio and ICA EDV. 6. Total occlusion=unable to detect flow.
[2020-01-18] MEDS ORDERED: LETROZOLE 2.5 MG TAB PO SCH (09:00)
[2020-01-18] MEDS ORDERED: CALCIUM CARB-VIT D 500MG-200UN 1 EACH TAB PO SCH (09:00)
[2020-01-18] MEDS ORDERED: ATORVASTATIN 40 MG TAB PO SCH (09:00)
[2020-01-18] MEDS ORDERED: FERROUS SULFATE 325 MG TAB PO SCH (09:00)
[2020-01-18] MEDS ORDERED: METOPROLOL SUCCINATE (ER) 25 MG TAB.ER.24H PO SCH (09:00)
[2020-01-18] MEDS ORDERED: LOSARTAN-HCTZ 50-12.5 MG 1 EACH TAB PO SCH (09:00)
[2020-01-18] MEDS ORDERED: amLODIPine 10 MG TAB PO SCH (09:00)
[2020-01-18] MEDS ORDERED: CHOLECALCIFEROL 1,000 UNIT TAB PO SCH (09:00)
[2020-01-18] MEDS ORDERED: ESCITALOPRAM 10 MG TAB PO SCH (09:00)
--- NOTE | 2020-01-18 09:01 | P.CRDCN ---
History of Present Illness Consult date: 01/18/20 Chief complaint: Syncopal episode History of present illness: This is a very pleasant 74-year-old female patient who sees Dr. Asencio in the office on regular basis with a past medical history significant for hypertension and dyslipidemia was admitted to the hospital for further evaluation of syncope. 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 She was dizzy and lightheaded. Subsequently when she was standing on the counter at the medical office she lost her consciousness which was witnessed by people around her. She doesn't recall having any feeling of heart racing or fluttering and no warmth feeling in the face and no symptoms of chest pain or chest discomfort around the episode. No injury related to the loss of consciousness episode. Because of that she was brought to the hospital. She underwent an extensive cardiac workup including EKG showing sinus rhythm with bifascicular block ambulance assistant of right bundle branch block and left anterior fascicular block. Beside that she underwent cardiac enzymes and these came in to be unremarkable. The rest of her workup came in to be also unremarkable. No orthostatic blood pressure was performed which we are going to do. No arrhythmia noted as well during her hospital stay. The patient is not aware of any prior history of cardiac arrhythmia. No coronary artery disease. She underwent a heart catheterization in 2019 and that revealed normal coronaries. [facility] with. Past Medical History Past Medical History: Cancer, Hyperlipidemia, Hypertension, Osteoarthritis (OA) Additional Past Medical History / Comment(s): SOB w/exertion, has been sleeping alot recently, hx. breast cancer 2017 w/surgery & radiation History of Any Multi-Drug Resistant Organisms: None Reported Past Surgical History: Breast Surgery, Joint Replacement Additional Past Surgical History / Comment(s): left total knee replacement., lumpectomy left breast Past Anesthesia/Blood Transfusion Reactions: No Reported Reaction Past Psychological History: Anxiety, Depression Smoking Status: Former smoker Past Alcohol Use History: Rare Past Drug Use History: None Reported - Past Family History Brother(s) Family Medical History: Coronary Artery Disease (CAD) Sister(s) Family Medical History: Coronary Artery Disease (CAD) Daughter(s) Family Medical History: No Reported History Son(s) Family Medical History: No Reported History Father Family Medical History: CVA/TIA (Father at the age of 51 of CVA.) Mother Family Medical History: Cancer Medications and Allergies Home Medications Medication Instructions Recorded Confirmed Type ALPRAZolam [Xanax] 0.375 tab PO HS 12/03/14 01/17/20 History Cholecalciferol [Vitamin D3 (25 1,000 unit PO DAILY 12/03/14 01/17/20 History Mcg = 1000 Iu)] HYDROcodone/APAP 5-325MG [[place] 1 tab PO Q12HR PRN 12/03/14 01/17/20 History 5-325] Omeprazole 40 mg PO DAILY 12/03/14 01/17/20 History Losartan/Hydrochlorothiazide 1 tab PO DAILY 01/12/16 01/17/20 History [Hyzaar 100-25 Tablet] Letrozole 2.5 mg PO DAILY 10/16/17 01/17/20 History Calcium Carbonate/Vitamin D3 1 tab PO DAILY 02/24/19 01/17/20 History [Calcium 600-Vit D3 400 Tablet] Ferrous Sulfate [Feosol] 325 mg PO DAILY 02/24/19 01/17/20 History Rosuvastatin [Crestor] 20 mg PO DAILY 02/24/19 01/17/20 History Escitalopram [Lexapro] 10 mg PO DAILY 01/17/20 01/17/20 History Metoprolol Succinate [Toprol XL] 25 mg PO DAILY 01/17/20 01/17/20 History amLODIPine [Norvasc] 10 mg PO DAILY 01/17/20 01/17/20 History Allergies Allergy/AdvReac Type Severity Reaction Status Date / Time adhesive tape Allergy Rash/Hives Verified 01/17/20 21:33 Physical Exam Vitals: Vital Signs Temp Pulse Pulse Resp BP BP BP 01/18/20 08:06 98 F 70 16 152/83 01/18/20 02:47 98.2 F 84 18 149/83 01/18/20 00:39 98.1 F 86 16 134/88 01/18/20 00:00 85 16 134/91 01/17/20 23:00 85 16 138/80 01/17/20 22:00 101 H 16 163/96 01/17/20 21:06 98.0 F 108 H 19 145/84 Pulse Ox 01/18/20 08:06 98 10/06/20 02:47 98 01/18/20 00:39 96 01/18/20 00:00 01/17/20 23:00 98 01/17/20 22:00 98 01/17/20 21:06 99 Intake and Output 01/17/20 01/18/20 01/18/20 22:59 06:59 14:59 Other: Voiding Method Toilet # Voids 1 Weight 68.039 kg 68.039 kg - Constitutional General appearance: no acute distress - Respiratory Respiratory: bilateral: CTA - Cardiovascular Rhythm: regular Heart sounds: normal: S1, S2 Abnormal Heart Sounds: systolic murmur Results 01/18/20 04:36 01/18/20 04:36 Cardiac Enzymes 01/17/20 01/17/20 01/18/20 Range/Units 22:29 22:29 01:25 AST 27 (14-36) U/L Troponin I <0.012 <0.012 (0.000-0.034) ng/mL 01/18/20 Range/Units 04:36 AST (14-36) U/L Troponin I <0.012 (0.000-0.034) ng/mL Coagulation 01/17/20 Range/Units 22:29 PT 9.7 (9.0-12.0) sec APTT 23.1 (22.0-30.0) sec CBC 01/17/20 01/18/20 Range/Units 22:29 04:36 WBC 7.8 4.2 (3.8-10.6) k/uL RBC 4.00 3.70 L (3.80-5.40) m/uL Hgb 13.0 12.3 (11.4-16.0) gm/dL Hct 38.5 35.7 (34.0-46.0) % Plt Count 238 217 (150-450) k/uL Comprehensive Metabolic Panel 01/17/20 01/18/20 Range/Units 22:29 04:36 Sodium 138 138 (137-145) mmol/L Potassium 3.6 3.7 (3.5-5.1) mmol/L Chloride 106 109 H (98-107) mmol/L Carbon Dioxide 25 24 (22-30) mmol/L BUN 22 H 17 (7-17) mg/dL Creatinine 0.80 0.72 (0.52-1.04) mg/dL Glucose 128 H 101 H (74-99) mg/dL Calcium 9.6 9.2 (8.4-10.2) mg/dL AST 27 (14-36) U/L ALT 17 (4-34) U/L Alkaline Phosphatase 90 (38-126) U/L Total Protein 7.0 (6.3-8.2) g/dL Albumin 4.4 (3.5-5.0) g/dL Current Medications Generic Name Dose Route Start Last Admin Trade Name Freq PRN Reason Stop Dose Admin Hydrocodone Bitart/Acetaminophen 1 each 01/17/20 23:38 Hydrocodone/Apap 5-325mg 1 Each Tab PO Q12HR PRN Pain Alprazolam 0.375 mg 01/17/20 23:45 01/18/20 00:03 Alprazolam 0.25 Mg Tab PO 0.375 mg HS [facility] Administration Amlodipine Besylate 10 mg 01/18/20 09:00 Amlodipine 10 Mg Tab PO DAILY [facility] Atorvastatin Calcium 40 mg 01/18/20 09:00 Atorvastatin 40 Mg Tab PO DAILY [facility] Calcium Carbonate 1 each 01/18/20 09:00 Calcium Carb-Vit D 500mg-200un 1 Each Tab PO DAILY [facility] Cholecalciferol 1,000 unit 01/18/20 09:00 Cholecalciferol 1,000 Unit Tab PO DAILY [facility] Escitalopram Oxalate 10 mg 01/18/20 09:00 Escitalopram 10 Mg Tab PO DAILY [facility] Ferrous Sulfate 325 mg 01/18/20 09:00 Ferrous Sulfate 325 Mg Tab PO DAILY [facility] HCTZ/Losartan Potassium 2 each 01/18/20 09:00 Losartan-Hctz 50-12.5 Mg 1 Each Tab PO DAILY [facility] Letrozole 2.5 mg 01/18/20 09:00 Letrozole 2.5 Mg Tab PO DAILY [facility] Metoprolol Succinate 25 mg 01/18/20 09:00 Metoprolol Succinate (Er) 25 Mg Tab.Er.24h PO DAILY [facility] Naloxone HCl 0.2 mg 01/17/20 23:36 Naloxone 0.4 Mg/Ml 1 Ml Vial IV Q2M PRN Opioid Reversal Pantoprazole Sodium 40 mg 01/18/20 07:30 01/18/20 06:32 Pantoprazole 40 Mg Tablet PO 40 mg DAILY@0730 [facility] Administration Intake and Output 01/17/20 01/18/20 01/18/20 22:59 06:59 14:59 Other: Voiding Method Toilet # Voids 1 Weight 68.039 kg 68.039 kg 01/18/20 04:36 01/18/20 04:36 Assessment and Plan Assessment: Assessment #1 syncopal episode #2 hypertension #3 dyslipidemia Plan #1 rule out orthostatic blood pressure. We'll obtain orthostatic blood pressure check #2 the syncope could be related to vasovagal as well as #3 rule out cardiac arrhythmia. No arrhythmia noted during her hospital stay. She might benefit from an event monitor as an outpatient #4 rule out structural heart disease and we'll obtain an echocardiogram to assess the EF and the intracardiac valves. No coronary artery disease was identified on heart catheterization in 2019 #5 possible discharge in the next 12-24 hours
--- NOTE | 2020-01-18 10:43 | ECHOF ---
Referral Reason:syncope MEASUREMENTS -------- HEIGHT: 157.5 cm WEIGHT: 68.0 kg BP: 149/83 RVIDd: 2.2 cm (< 3.3) IVSd: 1.1 cm (0.6 - 1.1) LVIDd: 4.2 cm (3.9 - 5.3) LVPWd: 1.2 cm (0.6 - 1.1) IVSs: 1.8 cm LVIDs: 2.3 cm LVPWs: 2.0 cm LAESV Index (A-L): 22.42 ml/m Ao Diam: 2.7 cm (2.0 - 3.7) AV Cusp: 1.9 cm (1.5 - 2.6) LA Diam: 3.4 cm (2.7 - 3.8) MV EXCURSION: 15.792 mm (> 18.000) MV EF SLOPE: 66 mm/s (70 - 150) EPSS: 0.8 cm MV E Germain: 0.74 m/s MV DecT: 198 ms MV A Germain: 0.90 m/s MV E/A Ratio: 0.82 AR PHT: 758 ms RAP: 5.00 mmHg RVSP: 27.32 mmHg FINDINGS -------- This was a technically good study. The left ventricular size is normal. There is borderline concentric left ventricular hypertrophy. Overall left ventricular systolic function is normal with, an EF between 55 - 60 %. Normal LAP Gra de 1 Diastolic Dysfunction. The right ventricle is normal in size. The left atrial size is normal. Normal LA size by volume 22+/-6 ml/m2. The right atrial size is normal. Interatrial and interventricular septum intact. The aortic valve is trileaflet and appears structurally normal. Trace amount of aortic regurgitatio n. The mitral valve is normal. [id number] mitral regurgitation is present. The tricuspid valve appears structurally normal. Mild tricuspid regurgitation present. Right vent ricular systolic pressure is normal at < 35 mmHg. There is no pulmonic regurgitation present. The aortic root size is normal. Normal inferior vena cava with normal inspiratory collapse consistent with estimated right atrial pre ssure of 5 mmHg. There is no pericardial effusion. CONCLUSIONS -------- 1. The left ventricular size is normal. 2. There is borderline concentric left ventricular hypertrophy. 3. Overall left ventricular systolic function is normal with, an EF between 55 - 60 %. 4. Normal LAP Grade 1 Diastolic Dysfunction. 5. Trace amount of aortic regurgitation. 6. [id number] mitral regurgitation is present. 7. Mild tricuspid regurgitation present. 8. There is no pericardial effusion. PLASTERER FOREMAN: Edel Nascimento RDCS
[2020-01-18 12:51] VITALS: PULSE 78
--- NOTE | 2020-01-18 13:42 | P.HPIM ---
History of Present Illness H&P Date: 01/18/20 Chief Complaint: Syncope HISTORY AND PHYSICAL AND DISCHARGE SUMMARY: This is a 74-year-old female patient of Dr. Rocha and Dr. Asencio with past medical history of hypertension, hyperlipidemia, history of breast cancer in 2017 status post lumpectomy and radiation, generalized osteoarthritis, remote history of tobacco use and dependence. Patient underwent a Lexiscan stress test in February 2019 which came back abnormal and subsequently underwent a heart catheterization that revealed normal coronaries. Patient states that she was on her way to work yesterday and had a little bit of lightheadedness or dizziness. She got to work and she walked up to the desk and that the last thing she remembered. She had a witnessed syncopal episode. She denies any loss of bladder control. She denies any dysuria. Following that she did hit her head on the counter standing up but otherwise no injury. She was very lightheaded following. Her daughter checked her blood pressure and it was elevated and patient continued to have lightheadedness and EMS was called and she was brought into the hospital for evaluation and treatment. She also states she had a fluttering feeling in her chest and more shortness of breath. She also complai ns of a jabbing type pain that she has had in her left breast nipple since surgery which was thought to be due to the cutting of the nurse during the surgical procedure. This seemed to be much more severe during this episode yesterday. Patient was brought into [facility] emergency center for evaluation. Patient was afebrile, heart rate 108, blood pressure 145/84, pulse ox 99% on room air. CBC unremarkable. Electrolytes normal, BUN 22 and creatinine 0.8. Blood sugar 128. Liver function tests normal. Troponins negative on 3 draws. Urinalysis clear with leukoesterase trace. EKG sinus rhythm with by fascicular block, right bundle branch block, left anterior fascicular block. Chest x-ray reveals no active cardiopulmonary disease. Carotid Doppler revealed intimal thickening and plaquing without flow limiting stenosis. Echocardiogram reveals EF of 55-60%, borderline concentric left ventricular hypertrophy, trace aortic regurgitation, mild to moderate mitral regurgitation, mild tricuspid regurgitation. Patient was placed on the observation unit and seen by cardiology. Dr. Walters is recommended checking orthostatic vital signs which have come back negative, possible event monitor to rule out cardiac arrhythmia. A d-dimer was ordered and came back negative. 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 Patient will be discharged home in stable condition. Review of Systems Constitutional: Denies chills, Denies fatigue, Denies fever, Denies lethargy, Denies malaise, Denies poor appetite, Denies weakness Eyes: denies blurred vision, denies pain Ears, nose, mouth and throat: Reports vertigo, Denies dysphagia, Denies headache, Denies nasal congestion, Denies nasal discharge, Denies sore throat Cardiovascular: Reports chest pain, Reports dyspnea on exertion, Reports lightheadedness, Reports syncope, Denies edema, Denies leg edema Respiratory: Denies cough, Denies hemoptysis, Denies home oxygen, Denies respiratory infections, Denies wheezing Gastrointestinal: Denies abdominal pain, Denies diarrhea, Denies loss of appetite, Denies nausea, Denies vomiting Genitourinary: Denies dysuria, Denies hematuria, Denies urgency, Denies urinary frequency Menstruation: Reports postmenopausal Musculoskeletal: Denies frequent falls, Denies gait dysfunction, Denies muscle weakness, Denies myalgias Integumentary: Denies pruritus, Denies rash, Denies wounds Neurological: Reports syncope, Reports vertigo, Denies change in mentation, Denies change in speech, Denies gait dysfunction, Denies head injury, Denies seizures, Denies weakness, Denies visual changes Psychiatric: Denies anxiety, Denies depression Endocrine: Denies fatigue, Denies weight change Past Medical History Past Medical History: Cancer, Hyperlipidemia, Hypertension, Osteoarthritis (OA) Additional Past Medical History / Comment(s): SOB w/exertion, has been sleeping alot recently, hx. breast cancer 2017 w/surgery & radiation History of Any Multi-Drug Resistant Organisms: None Reported Past Surgical History: Breast Surgery, Joint Replacement Additional Past Surgical History / Comment(s): left total knee replacement., lumpectomy left breast Past Anesthesia/Blood Transfusion Reactions: No Reported Reaction Past Psychological History: Anxiety, Depression Smoking Status: Former smoker Past Alcohol Use History: Rare Past Drug Use History: None Reported - Past Family History Brother(s) Family Medical History: Coronary Artery Disease (CAD) Sister(s) Family Medical History: Coronary Artery Disease (CAD) Daughter(s) Family Medical History: No Reported History Son(s) Family Medical History: No Reported History Father Family Medical History: CVA/TIA (Father at the age of 51 of CVA.) Mother Family Medical History: Cancer Medications and Allergies Home Medications Medication Instructions Recorded Confirmed Type ALPRAZolam [Xanax] 0.375 tab PO HS 12/03/14 01/17/20 History Cholecalciferol [Vitamin D3 (25 1,000 unit PO DAILY 12/03/14 01/17/20 History Mcg = 1000 Iu)] HYDROcodone/APAP 5-325MG [[place] 1 tab PO Q12HR PRN 12/03/14 01/17/20 History 5-325] Omeprazole 40 mg PO DAILY 12/03/14 01/17/20 History Losartan/Hydrochlorothiazide 1 tab PO DAILY 01/12/16 01/17/20 History [Hyzaar 100-25 Tablet] Letrozole 2.5 mg PO DAILY 10/16/17 01/17/20 History Calcium Carbonate/Vitamin D3 1 tab PO DAILY 02/24/19 01/17/20 History [Calcium 600-Vit D3 400 Tablet] Ferrous Sulfate [Iron (65 MG 325 mg PO DAILY 02/24/19 01/17/20 History Elemental)] Rosuvastatin [Crestor] 20 mg PO DAILY 02/24/19 01/17/20 History Escitalopram [Lexapro] 10 mg PO DAILY 01/17/20 01/17/20 History Metoprolol Succinate [Toprol XL] 25 mg PO DAILY 01/17/20 01/17/20 History amLODIPine [Norvasc] 10 mg PO DAILY 01/17/20 01/17/20 History Allergies Allergy/AdvReac Type Severity Reaction Status Date / Time adhesive tape Allergy Rash/Hives Verified 01/17/20 21:33 Physical Exam Vitals: Vital Signs Temp Pulse Pulse Resp BP BP BP 01/18/20 09:00 70 16 01/18/20 08:06 98 F 70 16 152/83 01/18/20 02:47 98.2 F 84 18 149/83 01/18/20 00:39 98.1 F 86 16 134/88 01/18/20 00:00 85 16 134/91 01/17/20 23:00 85 16 138/80 01/17/20 22:00 101 H 16 163/96 01/17/20 21:06 98.0 F 108 H 19 145/84 Pulse Ox 01/18/20 09:00 01/18/20 08:06 98 01/18/20 02:47 98 01/18/20 00:39 96 01/18/20 00:00 01/17/20 23:00 98 01/17/20 22:00 98 01/17/20 21:06 99 Intake and Output 01/17/20 01/18/20 01/18/20 22:59 06:59 14:59 Intake Total 360 Balance 360 Intake: Oral 360 Other: Voiding Method Toilet Toilet # Voids 1 Weight 68.039 kg 68.039 kg Gen: This is a 74-year-old female. Patient is resting but appears to be comfortable and in no acute distress. HEENT: Head is atraumatic, normocephalic. Pupils equal, round. Sclerae is anicteric. NECK: Supple. No JVD. No lymphadenopathy. No thyromegaly. LUNGS: Clear to auscultation. No wheezes or rhonchi. No intercostal retractions. HEART: Regular rate and rhythm. Systolic murmur. ABDOMEN: Soft. Bowel sounds are present. No masses. No tenderness. EXTREMITIES: No pedal edema. No calf tenderness. NEUROLOGICAL: Patient is awake, alert and oriented x3. Cranial nerves 2 through 12 are grossly intact. Results CBC & Chem 7: 01/18/20 04:36 01/18/20 04:36 Labs: Abnormal Lab Results - Last 24 Hours (Table) 01/17/20 01/17/20 01/17/20 Range/Units 22:29 22:29 22:29 RBC (3.80-5.40) m/uL Lymphocytes # 0.8 L (1.0-4.8) k/uL Chloride (98-107) mmol/L BUN 22 H (7-17) mg/dL Glucose 128 H (74-99) mg/dL Ur Leukocyte Esterase Trace H (Negative) 01/18/20 01/18/20 Range/Units 04:36 04:36 RBC 3.70 L (3.80-5.40) m/uL Lymphocytes # (1.0-4.8) k/uL Chloride 109 H (98-107) mmol/L BUN (7-17) mg/dL Glucose 101 H (74-99) mg/dL Ur Leukocyte Esterase (Negative) Thrombosis Risk Factor Assmnt - DVT/VTE Prophylaxis DVT/VTE Prophylaxis: Mechanical Prophylaxis ordered - Choose All That Apply Each Factor Represents 1 point: Abnormal pulmonary function (COPD), Obesity (BMI >25) Each Risk Factor Represents 3 Points: Age 75 years or older Thrombosis Risk Factor Assessment Total Risk Factor Score: 5 Thrombosis Risk Factor Assessment Level: High Risk Assessment and Plan Plan: 1. Syncopal episode, possible vasovagal, rule out cardiac arrhythmia. Cardiology consult appreciated. Orthostatic vital signs normal. Echocardiogram as above. Check d-dimer. 2. Hypertension. Continue Hyzaar [id number] daily, Toprol-XL 25 mg daily, Norvasc 10 mg daily. 3. Hyperlipidemia. Continue Crestor 20 mg daily. 4. GERD. Continue omeprazole 40 mg daily. 5. Generalized anxiety disorder and recurrent depression. Continue Lexapro 10 mg daily, Xanax 0.375 mg at bedtime. Patient placed on the observation unit. Discharge plan: Home Impression and plan of care have been directed as dictated by the signing physician. Cathy Yo nurse practitioner acting as scribe for signing physician.
[2020-01-18 15:08] VITALS: BP 116/73; RESP 18
== END 2020-01-18 18:12 | disposition home or self-care (01) ==
LOC: EC 20:57 → 3NCARDOBS 23:38
PROVIDERS: ADMIT Internal Medicine; ATTEND Internal Medicine
DX: R55 Syncope and collapse (principal); R42 Dizziness and giddiness; R09.89 Other specified symptoms and signs involving the circulatory and respiratory systems; N64.4 Mastodynia; I10 Essential (primary) hypertension; E78.5 Hyperlipidemia, unspecified; K21.9 Gastro-esophageal reflux disease without esophagitis; F41.1 Generalized anxiety disorder; F33.9 Major depressive disorder, recurrent, unspecified; C50.919 Malignant neoplasm of unspecified site of unspecified female breast; M19.90 Unspecified osteoarthritis, unspecified site; I45.2 Bifascicular block; I08.1 Rheumatic disorders of both mitral and tricuspid valves; J44.9 Chronic obstructive pulmonary disease, unspecified; E66.9 Obesity, unspecified; Z79.899 Other long term (current) drug therapy; Z79.811 Long term (current) use of aromatase inhibitors; Z91.09 Other allergy status, other than to drugs and biological substances; Z98.890 Other specified postprocedural states; Z92.3 Personal history of irradiation; Z96.652 Presence of left artificial knee joint; Z87.891 Personal history of nicotine dependence; Z68.27 Body mass index [BMI] 27.0-27.9, adult; Z82.49 Family history of ischemic heart disease and other diseases of the circulatory system; Z82.3 Family history of stroke; Z80.9 Family history of malignant neoplasm, unspecified
CPT/HCPCS: 99285; 36415; 93005; 93306; 85379; 80053; 80048; 84484 ×2; 85025 ×2; 85610; 85730; 81001; 71046; 93880; G0378

== ENCOUNTER → 2020-05-01 | Outpatient (CLI) | payer MEDICARE ==
--- NOTE | 2020-05-01 11:47 | USB ---
Reason for exam: follow-up at short interval from prior study. History: Patient is postmenopausal and has history of breast cancer at age 71. Family history of breast cancer at age 40. Benign US breast aspiration ea add LT of the left breast, October 24, 2017. Benign US biopsy breast VAD LT of the left breast, October 24, 2017. Radiation therapy of the left breast, April 2017. US breast localization LT, February 24, 2017. Lumpectomy of the left breast, February 24, 2017. Malignant US biopsy breast VAD LT of the left breast, January 23, 2017. US discontinued breast bx LT of the left breast, January 17, 2017. Benign excisional biopsy of the left breast, 1970. Took estrogen for 10 years beginning at age 46. Took progesterone for 10 years beginning at age 46. Taking antineoplastic for 2 years beginning at age 71. Physical Findings: Nurse Summary: left breast palpable biozorb inferior to scar upper outer quadrant left nipple inversion noted (nurse ts). US Breast LT Left complete breast ultrasound includes all four quadrants, the retroareolar region and axilla. Finding demonstrates a 1.3 x 0.5 x 1.1cm oval, hypoechoic lesion at 12 o'clock appears as lobe and a 2.1 x 1.9cm oval, hypoechoic lesion at 1 o'clock, previously 1.4 x 1.2 x 0.4cm and 1.4 x 1.1 x 0.6cm on 10/19/18 and 1.1 x 0.9 x 0.5cm on 04/20/18. 6 month follow up recommended. This will show 2 years of stability. These results were verbally communicated with the patient and result sheet given to the patient on 05/01/20. ASSESSMENT: Probably benign, BI-RAD 3 RECOMMENDATION: Follow-up diagnostic mammogram of both breasts in 6 months. Back on schedule for October 2020. Ultrasound of the left breast in 6 months.
== END | disposition home or self-care (01) ==
LOC: RADUSWWP 10:11
PROVIDERS: ATTEND Surgery
DX: R92.8 Other abnormal and inconclusive findings on diagnostic imaging of breast (principal)

== ENCOUNTER → 2020-05-25 | Outpatient (CLI) | payer MEDICARE ==
--- NOTE | 2020-05-25 20:31 | CT ---
EXAMINATION TYPE: CT abdomen pelvis wo con DATE OF EXAM: 05/25/2020 COMPARISON: 12/09/2019. HISTORY: Diarrhea x1 month. CT DLP: 454.7 mGycm Automated exposure control for dose reduction was used. TECHNIQUE: Helical acquisition of images was performed from the lung bases through the pelvis. FINDINGS: LUNG BASES: No significant abnormality is appreciated. LIVER/GB: No significant abnormality is appreciated. PANCREAS: No significant abnormality is seen. SPLEEN: No significant abnormality is seen. ADRENALS: No significant abnormality is seen. KIDNEYS: No significant abnormality is seen. FREE AIR: No free air is visualized RETROPERITONEAL ADENOPATHY: None visualized REPRODUCTIVE ORGANS: No significant abnormality is seen URINARY BLADDER: No significant abnormality is seen. PELVIC ADENOPATHY: None visualized. OSSEOUS STRUCTURES: No acute abnormality is seen. Moderate to severe lumbar spondylosis with moderat e dextroconvex scoliosis. BOWEL: No acute abnormality is seen. Colonic diverticulosis without acute diverticulitis. OTHER: None. IMPRESSION: NO ACUTE ABNORMALITY. Chronic findings as above.
== END | disposition home or self-care (01) ==
LOC: RADCTMAIN 15:34
PROVIDERS: ATTEND Internal Medicine
DX: R19.7 Diarrhea, unspecified (principal)
CPT/HCPCS: 74176

== ENCOUNTER 2020-06-09 11:00 | Day surgery (SDC) | payer MEDICARE ==
[2020-06-07 14:59] VITALS: BMI 26.5
[~2020-06-09 11:00] MED LIST changes: -ALPRAZolam 0.25 MG TAB PO ONE; -ALPRAZolam 0.25 MG TAB PO PRN; -ALPRAZolam 0.5 MG TAB PO PRN; -ASPIRIN 325 MG TAB PO ONE; -ATORVASTATIN 80 MG TAB PO ONE; -IOPAMIDOL-370 100ML BTL INJ ONE; +LACTATED RINGERS 1,000 ML IV SCH; -LIDOCAINE 1% INJ 10MG/ML (20 ML MDV) ONE; -LIDOCAINE 1% INJ 10MG/ML (20 ML MDV) SQ ONE; -LOSARTAN-HCTZ 50-12.5 MG 1 EACH TAB PO SCH; -MIDAZOLAM 2 MG/2 ML VIAL IV ONE; -NITROGLYCERIN SL TABS 0.4 MG TAB SUBLINGUAL PRN; -RX INFO: IV CONTRAST WAS GIVEN 1 EACH MISC MISCELLANE PRN; -SODIUM CHLORIDE 0.9% 1,000 ML in EMPTY BAG 1 BAG IV ONE; -fentaNYL (PF) 50 MCG/ML 2 ML AMP IV ONE; -fentaNYL (PF) 50 MCG/ML 2 ML AMP ONE
[2020-06-09] MEDS ORDERED: LIDOCAINE 1% (10MG/ML) FOR IV START INTRADERMA ONE (11:46)
[2020-06-09 11:48] VITALS: RESP 16; TEMP 98.1
[2020-06-09] MEDS ORDERED: PROPOFOL 10 MG/ML 20 ML VIAL IV ONE (12:14)
[2020-06-09] MEDS ORDERED: LIDOCAINE 1% INJ 10MG/ML (20 ML MDV) ONE (12:14)
--- NOTE | 2020-06-09 12:33 | P.PCN ---
Date of Procedure: 06/09/20 Procedure(s) Performed: Brief history: Patient is a pleasant 74-year-old white female scheduled for an elective upper endoscopy as well as colonoscopy as a part of evaluation of abdominal pain and chronic diarrhea for the last 1 month duration. She has bowel movements anywhere from 5-10 a day which are loose to watery in consistency but no blood or mucus in the stool. Procedure performed: Esophagogastroduodenoscopy with biopsy Colonoscopy with biopsy Preoperative diagnosis: Abdominal pain/chronic diarrhea Anesthesia: MAC Procedure: After informed consent was obtained from the patient was brought into the endoscopy unit and IV sedation was administered by anesthesia under continuous monitoring. Initially upper endoscopy was done. The Olympus GF 160 video endoscope was inserted inserted into the mouth and esophagus intubated without any difficulty and was gradually advanced into the stomach and duodenum and carefully examined. The bulb and second part of the duodenum appeared normal. Abscesses were done from the duodenum to rule out celiac disease. The scope was then withdrawn into the stomach adequately insufflated with air and upon careful examination the antrum had mild gastritis and biopsies were done from this area. The body, cardia and fundus appeared normal. The scope was then withdrawn into the esophagus. The GE junction was located at 40 cm to the incisors. It appeared regular with no erythema erosions or ulcerations. Rest of the esophagus appeared normal. Patient tolerated the procedure well. At this time the patient continued to remain sedation. Initial digital rectal examination was normal. Olympus CF 160 video colonoscope was then inserted into the rectum and gradually advanced to the cecum without any difficulty. Careful examination was performed as the scope was gradually being withdrawn. The prep was excellent. The cecum, ascending colon, transverse colon, descending colon, sigmoid colon and rectum appeared normal. Retroflexion was performed in the rectum and no lesions were noted. random biopsies were done from ascending and descending colon to rule out microscopic/collagenous colitis Patient tolerated the procedure well. Impression: 1. Upper Endoscopy revealed mild antral gastritis 2. Colonoscopy revealed moderate sigmoid diverticulosis but no evidence of colitis or colorectal neoplasia Recommendations: Findings of this examination were discussed with the patient as well as her family. She was advised to follow with the biopsy results. In the meantime she can continue use [id number] Imodium as needed
[2020-06-09] MEDS ORDERED: ONDANSETRON 4 MG/2 ML VIAL IVP ONE (12:40)
[2020-06-09] MEDS ORDERED: ONDANSETRON 4 MG/2 ML VIAL ONE (12:42)
[2020-06-09 13:02] VITALS: BP 132/77; PULSE 74
== END 2020-06-09 13:13 | disposition home or self-care (01) ==
LOC: ORWHC2ENDO 11:00
PROVIDERS: ATTEND Internal Medicine Gastroenterology
DX: K57.30 Diverticulosis of large intestine without perforation or abscess without bleeding (principal); K52.9 Noninfective gastroenteritis and colitis, unspecified; K29.50 Unspecified chronic gastritis without bleeding; Z79.899 Other long term (current) drug therapy; I10 Essential (primary) hypertension; E78.5 Hyperlipidemia, unspecified; M19.90 Unspecified osteoarthritis, unspecified site; Z79.811 Long term (current) use of aromatase inhibitors; Z79.891 Long term (current) use of opiate analgesic; Z97.2 Presence of dental prosthetic device (complete) (partial); Z91.09 Other allergy status, other than to drugs and biological substances
CPT/HCPCS: 88305; 45380; 43239; J2405; J2001; J2704

== ENCOUNTER → 2020-10-05 | Outpatient (CLI) | payer MEDICARE ==
--- NOTE | 2020-10-05 16:18 | US ---
EXAMINATION TYPE: US kidneys/renal and bladder DATE OF EXAM: 10/05/2020 COMPARISON: ct 05/25/2020, 12/09/2019 ultrasound CLINICAL HISTORY: N18.1 Chronic kidney disease, stage 1. EXAM MEASUREMENTS: Right Kidney: 8.8 x 3.4 x 3.7 cm Left Kidney: 8.1 x 4.3 x 3.5 cm Right Kidney: Measuring small but symmetrical Left Kidney: Measuring small but symmetrical. Nodular appearance. Bladder: wnl Bilateral Jets seen: right jet only visualized There is no evidence for hydronephrosis at this point in time. No nephrolithiasis is seen. No yee s are identified. The urinary bladder is anechoic. right ureteral jet is seen. IMPRESSION: 1. Bilateral small kidneys with renal cortical thinning is most consistent with chronic medical renal disease. 2. Left ureteral jet was not seen. 3. Hypoechoic lesion of the left kidney most likely represents a complicated cyst but was not seen on prior imaging. Follow-up ultrasound is recommended in 6 months.
== END | disposition home or self-care (01) ==
LOC: RADUSWWP 15:28
PROVIDERS: ATTEND Internal Medicine
DX: N18.1 Chronic kidney disease, stage 1 (principal)
CPT/HCPCS: 76770

== ENCOUNTER → 2020-10-26 | Outpatient (CLI) | payer MEDICARE ==
--- NOTE | 2020-10-26 16:07 | USB ---
EXAMINATION TYPE: US breast limited LT DATE OF EXAM: 10/26/2020 COMPARISON: 10/19/2018 CLINICAL HISTORY: R92.8 Abnormal mammogram. Targeted left breast ultrasound was performed at 12:00 through 3:00 and in the retroareolar region an d axilla. In the left breast at 12:00, there is a 1.1 x 0.5 x 0.9 cm hypoechoic mass which is unchanged since 2018. The BioZorb material in the left breast at 1:00 is less prominent. IMPRESSION: No sonographic evidence for malignancy. BI-RADS 2, benign. Bilateral diagnostic mammogram is recommended in one year.
--- NOTE | 2020-10-27 09:25 | MM ---
Reason for exam: additional evaluation requested from prior study. Last mammogram was performed 1 year ago. History: Patient is postmenopausal and has history of breast cancer at age 71. Family history of breast cancer at age 40. Benign US breast aspiration ea add LT of the left breast, October 24, 2017. Benign US biopsy breast VAD LT of the left breast, October 24, 2017. Radiation therapy of the left breast, April 2017. US breast localization LT, February 24, 2017. Lumpectomy of the left breast, February 24, 2017. Malignant US biopsy breast VAD LT of the left breast, January 23, 2017. US discontinued breast bx LT of the left breast, January 17, 2017. Benign excisional biopsy of the left breast, 1970. Took estrogen for 10 years beginning at age 46. Took progesterone for 10 years beginning at age 46. Taking antineoplastic for 2 years beginning at age 71. Physical Findings: Nurse did not find any significant physical abnormalities on exam. MG 3D Diag Mammo W/Cad REYES Bilateral CC and MLO view(s) were taken. LM view(s) were taken of the left breast. Prior study comparison: October 26, 2019, bilateral MG 3d diag mammo w/cad REYES. October 19, 2018, bilateral MG 3d diag mammo w/cad REYES. The breast tissue is heterogeneously dense. This may lower the sensitivity of mammography. Left biopsy clip and post operative change. These results were verbally communicated with the patient and result sheet given to the patient on 10/26/20. ASSESSMENT: Incomplete: need additional imaging evaluation, BI-RAD 0 RECOMMENDATION: Ultrasound of the left breast. (as per prior report)
== END | disposition home or self-care (01) ==
LOC: RADMAMWWP 14:02
PROVIDERS: ATTEND Surgery
DX: R92.8 Other abnormal and inconclusive findings on diagnostic imaging of breast (principal)
CPT/HCPCS: 77066; 76642; G0279; 77062

== ENCOUNTER → 2021-01-08 | Outpatient (CLI) | payer MEDICARE ==
[2021-01-08 14:46] LABS: HCT 35.5 % (34.0-46.0); HGB 12.2 gm/dL (11.4-16.0); MCH 33.2 pg (25.0-35.0); MCHC 34.5 g/dL (31.0-37.0); MCV 96.4 fL (80.0-100.0); Mean Platelet Volume 8.6; Platelet Count 241 k/uL (150-450); RBC 3.69 m/uL (3.80-5.40); WBC 4.8 k/uL (3.8-10.6)
[2021-01-08 14:47] LABS: Appearance,Urine Clear (Clear); Bilirubin,Urine Negative (Negative); Blood,Urine Negative (Negative); Color,Urine Yellow; Glucose,Urine (UA) Negative (Negative); Ketones,Urine Negative (Negative); Leukocyte Esterase,Urine Negative (Negative); Nitrite,Urine Negative (Negative); Protein,Urine Negative (Negative); Specific Gravity,Urine 1.017 (1.001-1.035)
[2021-01-08 14:54] LABS: INR 0.9 (<1.2); Partial Thromboplastin Time 22.5 sec (22.0-30.0); Prothrombin Time 10.2 sec (9.0-12.0)
[2021-01-08 15:00] LABS: Albumin 4.3 g/dL (3.5-5.0); Calcium 9.8 mg/dL (8.4-10.2); Total Bilirubin 0.8 mg/dL (0.2-1.3); Total Protein 6.9 g/dL (6.3-8.2)
== END | disposition home or self-care (01) ==
LOC: LABPAT 14:27
PROVIDERS: ATTEND Orthopaedic Surgery Sports Medicine
DX: Z01.812 Encounter for preprocedural laboratory examination (principal); Z01.810 Encounter for preprocedural cardiovascular examination; M17.11 Unilateral primary osteoarthritis, right knee
CPT/HCPCS: 80053; 81003; 85027; 85610; 85730; 87070

== ENCOUNTER 2021-01-25 08:12 | Day surgery (SDC) | payer MEDICARE ==
[2021-01-23 11:36] VITALS: BMI 27.0
[~2021-01-25 08:12] MED LIST changes: +ACETAMINOPHEN TAB 500 MG TAB PO PRN; +DEXAMETHASONE SOD PHOSPHATE 4 MG/ML 1 ML VIAL IV ONE; +HYDROmorphone 0.5 MG/0.5 ML SYRINGE IVP PRN; +MELOXICAM 7.5 MG TAB PO PRN; +ONDANSETRON 4 MG/2 ML VIAL IVP ONE; +ONDANSETRON 4 MG/2 ML VIAL IVP PRN; +TRANEXAMIC ACID 1,000 MG in SODIUM CHLORIDE 0.9% 100 ML IVPB PRN
[2021-01-25] MEDS ORDERED: MIDAZOLAM 2 MG/2 ML VIAL IVP ONE (08:59)
[2021-01-25] MEDS ORDERED: PHENYLEPHRINE-0.9% NACL SYG 1,000 MCG/10 ML SYRINGE ONE (10:36)
[2021-01-25] MEDS ORDERED: TRANEXAMIC ACID 1,000 MG/10 ML VIAL ONE (10:36)
[2021-01-25] MEDS ORDERED: SODIUM CHLORIDE 0.9% 100 ML BAG ONE (10:36)
[2021-01-25] MEDS ORDERED: ROPIVACAINE 5 MG/ML 30 ML VIAL ONE (10:36)
[2021-01-25] MEDS ORDERED: PROPOFOL 10 MG/ML 20 ML VIAL IV ONE (10:36)
[2021-01-25] MEDS ORDERED: MIDAZOLAM 2 MG/2 ML VIAL ONE (10:36)
[2021-01-25] MEDS ORDERED: ceFAZolin 3,000 MG in SODIUM CHLORIDE 0.9% IRRIGATIO 3,000 ML IRRIGATION ONE (10:41)
[2021-01-25] MEDS ORDERED: TEMAZEPAM 15 MG CAP PO PRN (12:30)
[2021-01-25] MEDS ORDERED: HYDROcodone/APAP 5-325MG 1 EACH TAB PO PRN (12:30)
[2021-01-25] MEDS ORDERED: HYDROmorphone 0.5 MG/0.5 ML SYRINGE IVP PRN (12:30)
[2021-01-25] MEDS ORDERED: MAGNESIUM HYDROXIDE 2,400 MG/10 ML CUP PO PRN (12:30)
[2021-01-25] MEDS ORDERED: NALOXONE 0.4 MG/ML 1 ML VIAL IV PRN (12:30)
[2021-01-25] MEDS ORDERED: HYDROmorphone 0.2 MG/1 ML SYRINGE IVP PRN (12:30)
[2021-01-25] MEDS ORDERED: bisacodyL 10 MG SUPP RECTAL PRN (12:30)
[2021-01-25] MEDS ORDERED: ONDANSETRON 4 MG/2 ML VIAL IVP PRN (12:30)
[2021-01-25] MEDS ORDERED: NA PHOS,M-B/NA PHOS,DI-BA 133 ML ENEMA RECTAL PRN (12:30)
[2021-01-25] MEDS ORDERED: ROPIVACAINE 0.2%-NS ON-Q PUMP 2 MG/ML EACH MISCELLANE ONE (12:51)
[2021-01-25] MEDS ORDERED: ROPIVACAINE 0.2%-NS ON-Q PUMP 1,090 MG, EMPTY PAIN BALL 1 EACH MISCELLANE PRN (12:51)
--- NOTE | 2021-01-25 13:22 | XR ---
EXAMINATION TYPE: XR knee limited RT DATE OF EXAM: 01/25/2021 COMPARISON: 04/12/2015 HISTORY: Postop knee replacement TECHNIQUE: 2 view right knee FINDINGS: Tibial and femoral components of the place. No acute fractures or dislocations are evident. Postsurgical soft tissue changes are present. No joint effusion is evident. IMPRESSION: 1. No acute fracture post knee replacement
[2021-01-25] MEDS: HYDROmorphone 0.5 MG/0.5 ML SYRINGE IVP PRN (14:12)
--- NOTE | 2021-01-25 16:46 | P.ANPRN ---
Procedure Note - Anesthesia - Nerve Block Performed Right Adductor Canal Infusion Time Out Performed: Yes Date of Procedure: 01/25/21 Procedure Start Time: 08:58 Procedure Stop Time: 09:07 Location of Patient: PreOp Indication: Acute Post-Operative Pain, Requested by Surgeon Sedation Type: Sedate with meaningful contact maintained Preparation: Sterile Prep, Sterile Dressing Position: Supine Catheter: Indwelling Needle Types: Pajunk Needle Gauge: 21 Ultrasound used to visualize needle placement: Yes Ultrasound used to observe medication spread: Yes Blood Aspirated: No Pain Paresthesia on Injection Noted: No Resistance on Injection: Normal Image Stored and Saved: Yes Events: Uneventful and Well Tolerated (ropi .5% 20cc)
--- NOTE | 2021-01-25 16:48 | P.ANPRN ---
Procedure Note - Anesthesia - Nerve Block Performed Right Sethck Single Time Out Performed: Yes Date of Procedure: 01/25/21 Procedure Start Time: :08 Procedure Stop Time: :12 Location of Patient: PreOp Indication: Acute Post-Operative Pain, Requested by Surgeon Sedation Type: Sedate with meaningful contact maintained Preparation: Sterile Prep Position: Supine Needle Types: Pajunk Needle Gauge: 21 Ultrasound used to visualize needle placement: Yes Ultrasound used to observe medication spread: Yes Blood Aspirated: No Pain Paresthesia on Injection Noted: No Resistance on Injection: Normal Image Stored and Saved: Yes Events: Uneventful and Well Tolerated (ropi .5% 25cc plus dexamethasone 4mg)
--- NOTE | 2021-01-25 19:05 | OP ---
OPERATIVE REPORT DATE OF PROCEDURE: 01/25/2021. SURGEON: Vernon Patiño M.D. POWERTRAIN ENGINEER: MAX Perez. PREOPERATIVE DIAGNOSIS: Right knee osteoarthrosis. POSTOPERATIVE DIAGNOSIS: Right knee osteoarthrosis. OPERATION: Right total knee arthroplasty. ANESTHESIA: Spinal with sedation. ESTIMATED BLOOD LOSS: 100 mL. TOURNIQUET: Tourniquet time was 50 minutes at 250 mmHg. COMPLICATIONS: None apparent. DRAINS: None. DISPOSITION: Post-Anesthesia Care Unit. INDICATIONS: Kallie is a 75-year-old female with longstanding history of right knee pain. History and physical examination are consistent with advanced right knee osteoarthrosis. She has been through significant nonoperative management up to this point. Further treatment options were discussed and she has decided to go forward with right total knee arthroplasty. The risks of the procedure were discussed with her in detail. These risks included but were not limited to risk of infection, nerve damage, bleeding, pain, and a small risk of deep vein thrombosis which could lead to fatal pulmonary embolism. There is also a risk of loosening of the implant, which could require revision operation. The patient understands these risks. All of her questions were answered to her satisfaction. Appropriate informed consent was obtained. DESCRIPTION OF THE PROCEDURE: The patient was identified in the preoperative holding area. Surgical site was marked by both the patient and myself. She was given 2 grams of Ancef IV for prophylactic purposes. She was then transferred to the operative suite. She was placed supine on the operating room table. A spinal anesthetic was then administered and dosed per the anesthesia department without apparent complication. Examination under anesthesia was then performed. The patient was 2-3 degrees shy of full extension. She had 100 degrees of flexion. The medial collateral ligament, lateral collateral ligament and posterior cruciate ligaments were stable. Tourniquet was then placed high on the right upper thigh well padded in preparation for surgery. The patient's right lower extremity was then prepped and draped in usual sterile fashion. Standard surgical pause was undertaken to ensure that we were operating on the correct site and that appropriate preoperative antibiotics had been given. All staff in the room were in agreement and we proceeded. The outlines of the patella were marked with a surgical pen. A planned 12 cm vertical incision centered over the patella was marked with a surgical pen. The leg was then exsanguinated with an Esmarch dressing. The knee was then flexed and tourniquet inflated to 250 mmHg. The total tourniquet time for the procedure was 50 minutes Incision was then made with a 10 blade scalpel. Dissection was carried down sharply to the overlying fascia. Great care was taken to minimize the skin flaps. The knee was then exposed using a standard medial parapatellar approach. A small cuff of quadriceps tendon was then left for suturing. She was in a bit of varus preoperatively. A standard medial release was then made. Superficial medial collateral ligament was dissected off the bone around to the posterior aspect of the proximal tibia. The medial meniscus was then excised as well. The lateral meniscus was also released anteriorly. The leg was then externally rotated. The patella was everted. The knee was flexed. Retractors were then placed to protect the collateral ligaments. I then proceeded to remove the infrapatellar fat pad. This was excised sharply tangentially with the fibers of the patellar tendon. I then proceeded to remove the peripheral osteophytes. This was done with a rongeur. I then proceeded with the distal femoral resection. She did have near-full extension. A planned 9 mm resection was then done. The femoral canal was then entered in the midline of the femur approximately 10 mm anterior to the origin of the posterior cruciate ligament. The nathaniel was then advanced down the center of the femur and placed intramedullary. Based on the preoperative radiographs, the angle between the anatomic and mechanical axis of the femur was approximately 4-5 degrees. The valgus angle of the distal femoral cutting guide was then set at 4 degrees for the right knee. The distal femoral cutting guide was then advanced over the intramedullary nathaniel. This was seated firmly against the femur. Then, as mentioned, I planned to take 9 mm off the distal femur. The cutting block was then secured onto the femur with pins. The jig was then removed. The distal femoral cut was made through the slot of the block. The pins were then removed and the distal femoral cutting block was removed. The accuracy of the distal femoral cuts was checked with 2 flat bars. I then proceeded with femoral sizing. The posterior referencing sizing guide was held firmly against the resected distal surface of the femur. The posterior condyles were resting on the posterior plane of the guide. The sizing stylus was then placed onto the anterior femur. The size was measured as a size 6. I then assessed for femoral rotation. Plan was for 3 degrees external rotation. Three degrees external rotation was placed onto the jig. These holes were then marked. I then confirmed the rotation by 3 separate methods. This was done using the epicondylar axis as well as Whitesides line and posterior referencing. It was deemed that the external rotation was proper. I then went forward with placing the femoral cutting block. This was placed over the previously placed pin holes. The Scotty wing was then placed onto the anterior slots to ensure that we would not notch the anterior femur with the anterior femoral cut. I then proceeded with the anterior femoral cut. This was flush with the anterior cortex of the femur. The posterior cuts were then made followed by the anterior chamfer cut and then the posterior chamfer cut. The cutting block was then removed. Throughout the resection, the collateral ligaments were protected with retractors. I then placed a trial size 6 femur. It was slightly wide, but the narrow fit very nicely medial to lateral and it fit flush with the distal end of the femur. The drill holes were then made. I then proceeded with the tibial cut. I planned for a cruciate-retaining knee. The guide was placed and set for varus, valgus and for slope. The height was set for an approximate 2 mm resection from the medial tibial plateau, which was the lower side. I was happy with the alignment and the amount of resection. The cutting block was then pinned to the proximal tibia. The alignment nathaniel was removed. The proximal tibia was resected with a reciprocating saw. Again, this was done with retractors protecting the collateral ligaments as well as the posterior cruciate ligament. I then proceeded to evaluate the flexion and extension gaps. A 10 mm block was then placed. The flexion and extension gaps were equal. I then proceed with resection of the posterior osteophytes. She had very minimal posterior osteophytes. This was done using a curved osteotome. This resected the posterior osteophytes, and posterior capsule stripping was done off the posterior aspect of the femur. The osteophytes were then removed. I then proceeded with resection of the patella. The thickness of the patella was measured using a caliper. The thickness was 22 mm. The thickness of the anticipated patellar dome was taken into account. Resection was then performed and confirmed to be equal in 4 quadrants using a caliper. Approximately 14 mm of bone remained after resection. A 29 x 8 standard patellar trial was then placed. The holes were drilled and the trial was then placed. I then proceeded with sizing the tibial plate. A size C tibial plate fit very nicely. I then placed the trial femur, the tibial tray and the patellar button. A 10 mm trial tibial insert was also placed. The components fit very nicely. She had full extension and flexion. The extension and flexion gaps were equal and stable to both varus and valgus stress. The patella tracked appropriately. Tibial tray rotation was then marked with a Bovie. This was externally rotated properly. I then proceeded with the tibial preparation. First we drilled the femoral holes and removed the femoral component. The tibial tray was then set for proper external rotation as well as mediolateral placement onto the tibia. It was then pinned into place. I then proceeded with punching the keel. I then decided to proceed with cementing of all of our components. The knee was thoroughly irrigated with sterile saline solution via pulse lavage. The lateral geniculate artery was identified and cauterized. All blood was removed from the bone of the tibia, femur and patella with pulse lavage. I then proceeded with cementing. Two packs of antibiotic bone cement were prepared on the back table by the certified hyperbaric technologist. I then proceeded with cementing of the tibia first. The cement was impacted into the keel as well as deeply seated in the bone. A second coat of cement was then placed. The tibia was then impacted into place. Excess cement was removed with Cordell's and Joker's. I then proceeded with cementing the femoral component. The femoral component was also cemented using standard technique. Excess cement was removed. A 10 mm trial insert was then placed into the knee. It was brought into full extension with a constant axial load placed until the cement had hardened. The patellar component was then cemented. This was held firmly with a compressive device until the cement had dried. When the cement had dried, the knee was taken out of extension. All excess cement was removed from around the prosthesis. I then trialed the knee with a 10 mm insert. Flexion and extension gaps were appropriate. The knee was stable. It came into full extension. I decided to go forward with 10 mm medial-congruent, cross-linked, cruciate- retaining tibial insert. Polyethylene was then placed onto the tibial tray and locked into place. The knee was then reduced. The knee was again further irrigated with sterile saline solution with antibiotic added. The tourniquet was then deflated. The total tourniquet time for the procedure was 50 minutes at 250 mmHg. Final components were Cha Persona size 6 narrow cruciate-retaining femoral component, size C tibial tray, a 10 mm medial- congruent, cruciate-retaining polyethylene insert and a 29 x 8 mm patella. I then proceeded with closure. Again the knee was thoroughly irrigated. The quadriceps tendon and the medial retinaculum were reapproximated with #2 Ethibond suture. The extensor mechanism was then closed with a running #2 Quill suture. Subcutaneous tissues were closed with 2-0 Vicryl interrupted suture. The skin was closed with a running 3-0 Quill suture. Dermabond was applied to the incision. Sterile compressive dressing was then applied. All sponge and needle counts were deemed correct prior to closure. The patient tolerated the procedure without apparent complication. She was transferred to the recovery room in stable condition. MMODL / IJN: [id number] /
[2021-01-25] MEDS: ASPIRIN 81 MG PO SCH (20:00)
[2021-01-25] MEDS ORDERED: SENNOSIDES-DOCUSATE SODIUM 1 EACH TAB PO SCH (21:00)
[2021-01-25] MEDS: HYDROcodone/APAP 5-325MG 1 EACH TAB PO PRN (22:27)
[2021-01-25] MEDS: LACTATED RINGERS 1,000 ML IV SCH (23:22)
[2021-01-26] MEDS: LACTATED RINGERS 1,000 ML IV SCH (02:16)
[2021-01-26 03:12] VITALS: RESP 18
[2021-01-26] MEDS: HYDROcodone/APAP 5-325MG 1 EACH TAB PO PRN ×2 (04:43→10:39)
[2021-01-26] MEDS: ASPIRIN 81 MG PO SCH (07:26)
--- NOTE | 2021-01-26 07:56 | P.PN ---
Progress Note - Text 01/26/21 720am 75-year-old female status post total knee replacement by Dr. Patiño. Patient is an On-Q pump for postop pain control, patient seen and evaluated this morning for postop pain, she has a VAS of 0. Patient didn't complain of pain which is predominantly located in the posterior aspect of the knee, the ipack block has worn off. Patient will need by mouth pain medications. Dressing was clean dry and intact with the solution running at 8 mL an hour
[2021-01-26] MEDS ORDERED: ALPRAZolam 0.25 MG TAB PO PRN (08:29)
[2021-01-26] MEDS: HYDROmorphone 0.5 MG/0.5 ML SYRINGE IVP PRN (08:33)
[2021-01-26] MEDS ORDERED: PANTOPRAZOLE 40 MG TABLET PO SCH (08:45)
--- NOTE | 2021-01-26 08:57 | P.CONS ---
History of Present Illness - Reason for Consult Consult date: 01/26/21 Medical management Requesting physician: Vernon Patiño - History of Present Illness HISTORY OF PRESENT ILLNESS This is a 75-year-old female patient of Dr. Rocha and Dr. Asencio with past medical history of hypertension, hyperlipidemia, history of breast cancer in 2017 status post lumpectomy and radiation, generalized osteoarthritis, remote history of tobacco use and dependence. Patient underwent a Lexiscan stress test in February 2019 which came back abnormal and subsequently underwent a heart catheterization that revealed normal coronaries. Patient was brought into the hospital under the care of Dr. Patiño status post right total knee arthroplasty on 01/25/2021. Patient is complaining of severe pain in the right knee, tachycardic and writhing in pain. Nursing updated the patient needs Dilaudid IV at least 1 time dose today. She has been afebrile. Expect that she will be ready for discharge later today. Medication reconciliation will be reviewed. REVIEW OF SYSTEMS Constitutional: No fever, no chills, no night sweats. No weight change. No weakness, fatigue or lethargy. No daytime sleepiness. EENT: No headache. No blurred vision or double vision, no loss of vision. No loss of Hearing, no ringing in the ears, no dizziness. No nasal drainage or congestion. No epistaxis. No sore throat. Lungs: No shortness of breath, cough, no sputum production. No wheezing. Cardiovascular: No chest pain, no lower extremity edema. No palpitations. No paroxysmal nocturnal dyspnea. No orthopnea. No lightheadedness or dizziness. No syncopal episodes. Abdominal: No abdominal pain. No nausea, vomiting. No diarrhea. No constipation. No bloody or tarry stools.. No loss of appetite. Genitourinary: No dysuria, increased frequency, urgency. No urinary retention. Musculoskeletal: No myalgias. No muscle weakness, no gait dysfunction, no frequent falls. No back pain. No neck pain. Reports severe right knee pain Integumentary: No wounds, no lesions. No rash or pruritus. No unusual bruising. No change in hair or nails. Neurologic: No aphasia. No facial droop. No change in mentation. No head injury. No headache. No paralysis. No paresthesia. Psychiatric: No depression. No anxiety. No mood swings. Endocrine: No abnormal blood sugars. No weight change. No excessive sweating or thirst. No cold intolerance. MEDICAL HISTORY Hypertension Hyperlipidemia History of breast cancers in 2017 status post lumpectomy and radiation Generalized osteoarthritis Recurrent depression Gastroesophageal reflux disease with esophagitis SURGICAL HISTORY Left breast lumpectomy with LND localization 02/24/2017 Left breast biopsy Left heart catheterization 02/26/2019 Colonoscopy 06/09/2020 Cataract removal and intraocular lens implants EGD 06/09/2020 Cardiac catheterization 02/26/2019 finding normal coronary arteries Left total knee arthroplasty 01/18/2016 Right total knee arthroplasty 01/25/2021 SOCIAL HISTORY Patient was a smoker and quit 20 years ago. No marijuana use, no alcohol use. FAMILY HISTORY Father from CVA. Mother from a type of cancer. Patient has 2 daughters with anxiety. She has 2 brothers and one sister and one sister is past. PHYSICAL EXAMINATION Gen: This is a 75-year-old female. Patient is writhing in bed back and forth, complaining of pain to the right knee and anxious. HEENT: Head is atraumatic, normocephalic. Pupils equal, round. Sclerae is anicteric. NECK: Supple. No JVD. No lymphadenopathy. No thyromegaly. LUNGS: Clear to auscultation. No wheezes or rhonchi. No intercostal retractions. HEART: First heart sound is normal, second heart sound is normal, systolic ejection murmur 2/6 at the left sternal border ABDOMEN: Soft. Bowel sounds are present. No masses. No tenderness. EXTREMITIES: No pedal edema. No calf tenderness. Dressing and ice packs to the right knee. NEUROLOGICAL: Patient is awake, alert and oriented x3. Cranial nerves 2 through 12 are grossly intact. ASSESSMENT AND PLAN 1. Osteoarthritis status post right total knee arthroplasty. Continue current pain management, one dose of Dilaudid to be given now, continue PT, OT, incentive spirometry to reduce incidence of atelectasis and hospital-acquired pneumonia. 2. Hypertension. Continue Hyzaar 30453 daily, Toprol-XL 50 mg at bedtime, Norvasc 10 mg daily. 3. Hyperlipidemia. Continue Crestor 20 mg daily. 4. GERD. Continue omeprazole 40 mg daily. 5. Generalized anxiety disorder and recurrent depression. Continue Lexapro 10 mg daily, Xanax 0.25 mg at bedtime. 6. DVT prophylaxis. Aspirin 81 mg twice daily. DISCHARGE PLAN Home. Impression and plan of care have been directed as dictated by the signing physician. Cathy Yo nurse practitioner acting as scribe for signing physician. Past Medical History Past Medical History: Cancer, COPD, Hyperlipidemia, Hypertension, Osteoarthritis (OA), Renal Disease Additional Past Medical History / Comment(s): SOB w/exertion, hx. breast cancer 2017 w/surgery & radiation, "complex cyst on kidney" History of Any Multi-Drug Resistant Organisms: None Reported Past Surgical History: Breast Surgery, Joint Replacement Additional Past Surgical History / Comment(s): left total knee replacement., lumpectomy left breast,3 lymph nodes removed from lt axillae, COLONOSCOPY, BILAT CATARACTS REMOVED Past Anesthesia/Blood Transfusion Reactions: No Reported Reaction, Postoperative Nausea & Vomiting (PONV) Additional Past Anesthesia/Blood Transfusion Reaction / Comm: nauseated after colonoscopy Past Psychological History: Anxiety, Depression Smoking Status: Former smoker Past Alcohol Use History: Rare Additional Past Alcohol Use History / Comment(s): quit smoking 1998, smoked since age 13, smoked less than 1ppd Past Drug Use History: None Reported - Past Family History Brother(s) Family Medical History: Coronary Artery Disease (CAD) Sister(s) Family Medical History: Coronary Artery Disease (CAD) Daughter(s) Family Medical History: No Reported History Son(s) Family Medical History: No Reported History Father Family Medical History: CVA/TIA (Father at the age of 51 of CVA.) Mother Family Medical History: Cancer Additional Family Medical History / Comment(s): colon cancer Medications and Allergies Home Medications Medication Instructions Recorded Confirmed Type ALPRAZolam [Xanax] 0.25 tab PO HS PRN 12/03/14 01/23/21 History Cholecalciferol [Vitamin D3 (25 1,000 unit PO DAILY 12/03/14 01/23/21 History Mcg = 1000 Iu)] HYDROcodone/APAP 5-325MG [[place] 1 tab PO Q12HR PRN 12/03/14 01/23/21 History 5-325] Omeprazole 40 mg PO DAILY 12/03/14 01/23/21 History Losartan/Hydrochlorothiazide 1 tab PO HS 01/12/16 01/23/21 History [Hyzaar 100-25 Tablet] Letrozole 2.5 mg PO AC-LUNCH 10/16/17 01/23/21 History Calcium Carbonate/Vitamin D3 1 tab PO DAILY 02/24/19 01/23/21 History [Calcium 600-Vit D3 10 mcg (400 Iu)] Ferrous Sulfate [Iron (65 MG 325 mg PO DAILY 02/24/19 01/23/21 History Elemental)] Rosuvastatin [Crestor] 20 mg PO DAILY 02/24/19 01/23/21 History Escitalopram [Lexapro] 10 mg PO DAILY 01/17/20 01/23/21 History Metoprolol Succinate [Toprol XL] 50 mg PO HS 01/17/20 01/23/21 History amLODIPine [Norvasc] 10 mg PO DAILY 01/17/20 01/23/21 History Cranberry Fruit Extract [Cranberry] 200 mg PO DAILY 01/23/21 01/23/21 History Vitamin C/Biotin [Hair, Skin and 1 tab PO DAILY 01/23/21 01/23/21 History Nails Chew] Aspirin [Adult Low Dose Aspirin EC] 81 mg PO BID #1 tab 01/25/21 Rx Gabapentin [Neurontin] 300 mg PO BID 5 Days #10 cap 01/25/21 Rx HYDROcodone/APAP 7.5-325MG [[place] 1 - 2 tab PO Q6HR PRN #32 tab 01/25/21 Rx 7.5-325] Meloxicam [Mobic] 1 - 2 tab PO DAILY PRN #30 tab 01/25/21 Rx Sennosides-Docusate Sodium 1 tab PO BID #60 tablet 01/25/21 Rx [Senokot-S] Allergies Allergy/AdvReac Type Severity Reaction Status Date / Time adhesive tape Allergy Rash/Hives Verified 01/23/21 11:15 Physical Exam Vitals: Vital Signs Temp Pulse Pulse Resp BP Pulse Ox 01/26/21 01:16 98.6 F 75 18 122/70 97 01/25/21 18:35 97.6 F 79 16 137/69 98 01/25/21 14:20 98 F 59 L 16 127/65 100 01/25/21 13:30 69 16 129/70 98 01/25/21 13:15 65 16 131/62 100 01/25/21 13:00 58 L 16 116/66 95 01/25/21 12:45 66 16 116/66 100 01/25/21 12:32 97 F L 66 16 127/65 94 L 01/25/21 09:27 70 15 137/67 97 01/25/21 08:28 97.4 F L 71 16 139/75 99 Intake and Output 01/25/21 01/26/21 01/26/21 22:59 06:59 14:59 Intake Total 350 Output Total 1999 Balance 350 -1999 Intake: Intake, IV Titration 350 Amount Lactated Ringers 1,000 ml 300 @ 100 mls/hr IV .Q10H TIMOTEO Rx#:[id number] ceFAZolin 2 gm In Sodium 50 Chloride 0.9% 50 ml @ 100 mls/hr IVPB Q8H TIOMTEO Rx#: [id number] Output: Urine 1999 Other: # Voids 8 Results CBC & Chem 7: 01/26/21 05:22
[2021-01-26] MEDS ORDERED: amLODIPine 10 MG TAB PO SCH (09:00)
[2021-01-26] MEDS ORDERED: MELOXICAM 7.5 MG TAB PO SCH (09:00)
[2021-01-26] MEDS ORDERED: ATORVASTATIN 40 MG TAB PO SCH (09:00)
[2021-01-26] MEDS ORDERED: ESCITALOPRAM 10 MG TAB PO SCH (09:00)
[2021-01-26 09:01] VITALS: BP 129/70; PULSE 98; TEMP 98.2
[2021-01-26 09:29] LABS: Basophils # (A) 0.01 X 10*3/uL (0.00-0.10); Basophils % (A) 0.1 %; Eosinophils # (A) 0 X 10*3/uL (0.04-0.35); Eosinophils % (A) 0 %; HCT 32.6 % (37.2-46.3); Lymphocytes # (A) 0.74 X 10*3/uL (0.90-5.00); Lymphocytes % (A) 8.4 %; MCHC 33.7 g/dL (32.0-37.0); MCV 94.8 fL (80.0-97.0); Mean Platelet Volume 11.4 fL (9.5-12.2); Monocytes % (A) 11.3 %; Neutrophils # (A) 7.08 X 10*3/uL (1.80-7.70); Platelet Count 200 X 10*3/uL (140-440); RBC 3.44 X 10*6/uL (4.10-5.20); RDW 11.8 % (11.5-14.5); WBC 8.85 X 10*3/uL (4.50-10.00)
--- NOTE | 2021-01-26 09:31 | P.DS ---
Providers Expected date of discharge: 01/26/21 Attending physician: Vernon Patiño Consults: 01/25/21 12:35 Consult Physician Urgent Consulting Provider: Ludy Rocha Consult Reason/Comments: medical management Do you want consulting provider notified?: Yes Primary care physician: Ludy Rocha - Discharge Diagnosis(es) (1) Status post total right knee replacement Patient was admitted to the OR on 01/25/21 to undergo a right total knee arthroplasty. She had failed conservative measures as an outpatient and desired to proceed with elective surgery after given informed consent. She underwent the above procedure which she tolerated well without complication. Postoperative hospital course has remained without complication. On day of discharge she is afebrile, vital signs stable, labs within acceptable ranges, tolerating by mouth meds and diet, voiding without difficulty, positive flatus, denies abdominal pain or calf pain, pain is controlled on oral pain medication and has no new complaints. Wound is benign, neurovascular status is intact, calf is soft and nontender, abdomen soft and nontender. Review of systems is negative for numbness, tingling, fever, chills, chest pain, shortness of breath, nausea, vomiting, dizziness, headaches, slurred speech or other. Current Visit: Yes Status: Acute Priority: Medium Procedures: Right TKA Patient Condition at Discharge: Good Plan - Discharge Summary Discharge Rx Participant: No New Discharge Prescriptions: New Aspirin [Adult Low Dose Aspirin EC] 81 mg PO BID #1 tab Meloxicam [Mobic] 1 - 2 tab PO DAILY PRN #30 tab PRN Reason: Pain HYDROcodone/APAP 7.5-325MG [[place] 7.5-325] 1 - 2 tab PO Q6HR PRN #32 tab PRN Reason: Pain Gabapentin [Neurontin] 300 mg PO BID 5 Days #10 cap Sennosides-Docusate Sodium [Senokot-S] 1 tab PO BID #60 tablet Continue Cholecalciferol [Vitamin D3 (25 Mcg = 1000 Iu)] 1,000 unit PO DAILY ALPRAZolam [Xanax] 0.25 tab PO HS PRN PRN Reason: Insomnia HYDROcodone/APAP 5-325MG [[place] 5-325] 1 tab PO Q12HR PRN PRN Reason: Pain Omeprazole 40 mg PO DAILY Losartan/Hydrochlorothiazide [Hyzaar 100-25 Tablet] 1 tab PO HS Letrozole 2.5 mg PO AC-LUNCH Ferrous Sulfate [Iron (65 MG Elemental)] 325 mg PO DAILY Rosuvastatin [Crestor] 20 mg PO DAILY Calcium Carbonate/Vitamin D3 [Calcium 600-Vit D3 10 mcg (400 Iu)] 1 tab PO DAILY Metoprolol Succinate [Toprol XL] 50 mg PO HS Escitalopram [Lexapro] 10 mg PO DAILY amLODIPine [Norvasc] 10 mg PO DAILY Vitamin C/Biotin [Hair, Skin and Nails Chew] 1 tab PO DAILY Cranberry Fruit Extract [Cranberry] 200 mg PO DAILY Discharge Medication List ALPRAZolam [Xanax] 0.25 tab PO HS PRN 12/03/14 [History] Cholecalciferol [Vitamin D3 (25 Mcg = 1000 Iu)] 1,000 unit PO DAILY 12/03/14 [History] HYDROcodone/APAP 5-325MG [[place] 5-325] 1 tab PO Q12HR PRN 12/03/14 [History] Omeprazole 40 mg PO DAILY 12/03/14 [History] Losartan/Hydrochlorothiazide [Hyzaar 100-25 Tablet] 1 tab PO HS 01/12/16 [History] Letrozole 2.5 mg PO AC-LUNCH 10/16/17 [History] Calcium Carbonate/Vitamin D3 [Calcium 600-Vit D3 10 mcg (400 Iu)] 1 tab PO DAILY 02/24/19 [History] Ferrous Sulfate [Iron (65 MG Elemental)] 325 mg PO DAILY 02/24/19 [History] Rosuvastatin [Crestor] 20 mg PO DAILY 02/24/19 [History] Escitalopram [Lexapro] 10 mg PO DAILY 01/17/20 [History] Metoprolol Succinate [Toprol XL] 50 mg PO HS 01/17/20 [History] amLODIPine [Norvasc] 10 mg PO DAILY 01/17/20 [History] Cranberry Fruit Extract [Cranberry] 200 mg PO DAILY 01/23/21 [History] Vitamin C/Biotin [Hair, Skin and Nails Chew] 1 tab PO DAILY 01/23/21 [History] Aspirin [Adult Low Dose Aspirin EC] 81 mg PO BID #1 tab 01/25/21 [Rx] Gabapentin [Neurontin] 300 mg PO BID 5 Days #10 cap 01/25/21 [Rx] HYDROcodone/APAP 7.5-325MG [[place] 7.5-325] 1 - 2 tab PO Q6HR PRN #32 tab 01/25/21 [Rx] Meloxicam [Mobic] 1 - 2 tab PO DAILY PRN #30 tab 01/25/21 [Rx] Sennosides-Docusate Sodium [Senokot-S] 1 tab PO BID #60 tablet 01/25/21 [Rx] Follow up Appointment(s)/Referral(s): [facility] Visiting Nurse, [NON-STAFF] - ([facility] will call you to schedule your first visit. ) Vernon Patiño MD [STAFF PHYSICIAN] - 10 Days Activity/Diet/Wound Care/Special Instructions: May bear wt as tolerated w walker. May change dressing 48h post op. May shower if no drainage from incision 48h post op. Take meds as directed Discharge Disposition: HOME WITH HOME HEALTH SERVICES
[2021-01-26] MEDS ORDERED: LETROZOLE 2.5 MG TAB PO SCH (12:30)
[2021-01-26] MEDS ORDERED: LOSARTAN-HCTZ 50-12.5 MG 1 EACH TAB PO SCH (21:00)
[2021-01-26] MEDS ORDERED: METOPROLOL SUCCINATE (ER) 50 MG TAB.ER.24H PO SCH (21:00)
== END 2021-01-26 13:46 | disposition home health service (06) ==
LOC: OR 08:12 → 4SSUR 12:32 → OR 01-26 13:46
PROVIDERS: ATTEND Orthopaedic Surgery Sports Medicine
DX: M17.11 Unilateral primary osteoarthritis, right knee (principal); I10 Essential (primary) hypertension; H91.90 Unspecified hearing loss, unspecified ear; R00.2 Palpitations; F32.9 Major depressive disorder, single episode, unspecified; I12.9 Hypertensive chronic kidney disease with stage 1 through stage 4 chronic kidney disease, or unspecified chronic kidney disease; N18.1 Chronic kidney disease, stage 1; E78.2 Mixed hyperlipidemia; K21.9 Gastro-esophageal reflux disease without esophagitis; Z96.652 Presence of left artificial knee joint; Z98.890 Other specified postprocedural states; Z87.891 Personal history of nicotine dependence; Z85.3 Personal history of malignant neoplasm of breast; Z82.3 Family history of stroke; Z80.9 Family history of malignant neoplasm, unspecified; Z82.49 Family history of ischemic heart disease and other diseases of the circulatory system; Z79.811 Long term (current) use of aromatase inhibitors; Z79.891 Long term (current) use of opiate analgesic; Z79.899 Other long term (current) drug therapy; Z91.09 Other allergy status, other than to drugs and biological substances
CPT/HCPCS: 97161; 64999; 64448; 76942; 88305; 85025; 88311; 73560; 27447; C1776; C1713; J2250; J1100; J0690 ×3; J2405; J2795 ×2; J2370; J2704; J1170 ×3

== ENCOUNTER → 2021-05-01 | Outpatient (CLI) | payer MEDICARE ==
--- NOTE | 2021-05-01 09:47 | BD ---
EXAMINATION TYPE: Axial Bone Density DATE OF EXAM: 05/01/2021 COMPARISON: DEXA bone scan February 01, 2019 CLINICAL HISTORY: Postmenopausal female with history of breast cancer. Height: 5 FT 2 IN Weight: 150 FRAX RISK QUESTIONS: Alcohol (3 or more units per day): NO Family History (Parent hip fracture): NO Glucocorticoids (More than 3mos): NO (Ex: prednisone, prednisolone, methylprednisolone, dexamethasone, and hydrocortisone). History of Fracture in Adulthood: NO Secondary Osteoporosis: 1. Type 1 Diabetes: NO 2. Hyperthyroidism: NO 3. Menopause before 45: NO 4. Malnutrition: NO 5. Chronic liver disease: NO Rheumatoid Arthritis: NO Current Tobacco Use: NO RISK FACTORS HISTORY OF: Surgery to Spine/Hip(right/left)/Wrist (right/left): NO Family History of Osteoporosis: NO Active: YES Diet low in dairy products/other sources of calcium: NO Postmenopausal woman: YES Take estrogen and/or progesterone medications: TOOK HRT FOR APPROX 10 YEARS NO LONGER Lost more than 2 inches in height since high school: NO Frequent falls: NO Poor Health: GOOD Hyperparathyroidism: NO Adrenal Insufficiency: NO MEDICATIONS: Additional Medications: AMLODIPINE, ESTROGEN SHELBY,METOPROLOL, ANTI DEPRESSION MEDS, POTASSIUM OMEPRAZOLE, LOSARTAN, VIT C , Additional History: BREAST CANCER RADIATION ONLY EXAM MEASUREMENTS: Bone mineral densitometry was performed using the [employer] System. Bone mineral density as measured about the Lumbar spine is: ----- L1-L4(G/cm2): 1.005 T Score Values are as follows: ----- L2: -1.9 ----- L3: -0.5 ----- L4: -0.8 ----- L1-L4: -1.5 Bone mineral density has: INCREASED 0.7 % since study of: 2018 Bone mineral density about the R hip (g/cm2): 0.815 Bone mineral density about the L hip (g/cm2): 0.852 T Score values are as follows: -----R Neck: -1.6 -----L Neck: -1.3 -----R Total: -1.1 -----L Total: -0.8 Bone mineral density has: 0 PERCENT CHANGE % since study of: 2018 IMPRESSION: Osteopenia (T Score between -2.5 and -1) remains present. There remains slightly increased risk of fracture and the patient may be considered for treatment. Re-Screen 2-5 years. NOTE: T-SCORE=SD OF THE YOUNG ADULT MEAN.
== END | disposition home or self-care (01) ==
LOC: RADBDWWP 08:23
PROVIDERS: ATTEND Internal Medicine Hematology & Oncology
DX: C50.412 Malignant neoplasm of upper-outer quadrant of left female breast (principal); M85.80 Other specified disorders of bone density and structure, unspecified site; Z79.890 Hormone replacement therapy
CPT/HCPCS: 77080

== ENCOUNTER → 2021-07-10 | Outpatient (CLI) | payer MEDICARE ==
--- NOTE | 2021-07-10 23:21 | CT ---
EXAMINATION TYPE: CT abdomen pelvis wo con DATE OF EXAM: 07/10/2021 COMPARISON: CT dated 05/25/2020 HISTORY: DIARRHEA, RLQ PAIN CT DLP: 422.7 mGycm Automated exposure control for dose reduction was used. TECHNIQUE: Helical acquisition of images was performed from the lung bases through the pelvis. FINDINGS: LUNG BASES: Left posterior fat-containing diaphragmatic hernia. LIVER/GB: No definite focal lesion by this nonenhanced CT scan. Unremarkable gallbladder. PANCREAS: No significant abnormality is seen. SPLEEN: No significant abnormality is seen. ADRENALS: No significant abnormality is seen. KIDNEYS: No significant abnormality is seen. FREE AIR: No free air is visualized RETROPERITONEAL ADENOPATHY: None visualized REPRODUCTIVE ORGANS: Small uterus. No gross uterine or adnexal mass. URINARY BLADDER: No significant abnormality is seen. PELVIC ADENOPATHY: None visualized. OSSEOUS STRUCTURES: Severe degenerative changes of the lumbar spine with anterolisthesis of L3 over L4 and retrolisthesis of L5 over S1. No aggressive bone lesion. Degenerative changes of the hip joint s and sacroiliac joints. BOWEL: Unremarkable stomach. Second part of the duodenum diverticulum, otherwise unremarkable duoden um and small bowel. Colonic diverticulosis being extensive in the sigmoid colon and descending colon with no evidence of acute diverticulitis. Small colonic lesion can't be excluded by this CT scan. Nor mal appendix. OTHER: Arterial atherosclerotic calcifications. No sizable ascites. IMPRESSION: Colonic diverticulosis without convincing evidence of acute colitis or acute diverticulitis. No evide nce of small or large bowel obstruction. Normal appendix. Other incidental findings as described jeana harrington
== END | disposition home or self-care (01) ==
LOC: RADCTMAIN 17:03
PROVIDERS: ATTEND Internal Medicine
DX: K57.30 Diverticulosis of large intestine without perforation or abscess without bleeding (principal)
CPT/HCPCS: 74176

== ENCOUNTER → 2021-10-29 | Outpatient (CLI) | payer MEDICARE ==
--- NOTE | 2021-10-29 11:11 | MM ---
Reason for Exam: Hx of breast cancer, conservation therapy. Last screening mammogram was performed 12 month(s) ago. Patient History: Menarche at age 10. First Full-Term at age 18. Postmenopausal. Breast cancer, left, age 71. Previous chest radiation therapy at age 71. Estrogen for 10 years from age 46 until age 56. Progesterone for 10 years from age 46 until age 56. 1970, Benign Excisional Biopsy on the left side. 02/24/2017, Lumpectomy on the Left side. 10/24/2017, Benign Cyst Aspiration on the left side. 10/24/2017, Benign Core Biopsy on the left side. 01/23/2017, Malignant Core Biopsy on the left side. 04/2017, Radiation Therapy on the left side. 01/17/2017, US discontinued breast bx LT on the left side. Niece had breast cancer, age 40. Prior Study Comparison: 12/29/1995 Screening Mammogram, Unknown. 10/24/2017 Left Diagnostic Mammogram, [facility]. 10/19/2018 Bilateral Diagnostic Mammogram, [facility]. 04/26/2019 Left Diagnostic Ultrasound, [facility]. 10/26/2019 Bilateral Diagnostic Mammogram, [facility]. 10/26/2020 Bilateral Diagnostic Mammogram, [facility]. 10/26/2020 Left Diagnostic Ultrasound, [facility]. Tissue Density: The breast tissue is heterogeneously dense. This may lower the sensitivity of mammography. Findings: Analyzed By CAD. Stable postlumpectomy distortion of the left breast. Improved skin thickening. Benign calcifications noted bilaterally. No suspicious clusters evident. Overall Assessment: Benign, BI-RAD 2 Management: Diagnostic Mammogram of both breasts in 1 year. A clinical breast exam by your physician is recommended on an annual basis and results should be correlated with mammographic findings. This exam should not preclude additional follow-up of suspicious palpable abnormalities. Results were given to the patient verbally at the time of exam. Electronically signed and approved by: Bharath Goode M.D. Radiologis
== END | disposition home or self-care (01) ==
LOC: RADMAMWWP 10:43
PROVIDERS: ATTEND Surgery
DX: R92.8 Other abnormal and inconclusive findings on diagnostic imaging of breast (principal)
CPT/HCPCS: 77066; G0279; 77062

== ENCOUNTER → 2022-10-04 | Outpatient (CLI) | payer MEDICARE ==
--- NOTE | 2022-10-04 16:50 | US ---
EXAMINATION TYPE: US kidneys/renal and bladder DATE OF EXAM: 10/04/2022 COMPARISON: Ultrasound 10/05/2020 CLINICAL INDICATION: Female, 77 years old with history of N18.32; ckd 3 EXAM MEASUREMENTS: Right Kidney: 9.4 x 3.9 x 3.9 cm Left Kidney: 9.5 x 4.3 x 3.4 cm Right Kidney: No hydronephrosis or masses seen. Cortical medullary differentiation maintained. Left Kidney: No hydronephrosis or masses seen. Cortical medullary differentiation maintained. Bladder: wnl Bilateral Jets seen: Yes There is no evidence for hydronephrosis at this point in time. No nephrolithiasis is seen. No yee s are identified. The urinary bladder is anechoic. Bilateral ureteral jets are seen. IMPRESSION: No obstructive uropathy or renal calculus visualized. Cortical medullary differentiation maintained.
== END | disposition home or self-care (01) ==
LOC: RADUSWWP 14:59
PROVIDERS: ATTEND Internal Medicine
DX: C50.912 Malignant neoplasm of unspecified site of left female breast (principal); N18.32 Chronic kidney disease, stage 3b
CPT/HCPCS: 76770

== ENCOUNTER → 2022-10-09 | Outpatient (CLI) | payer MEDICARE ==
--- NOTE | 2022-10-09 13:15 | XR ---
EXAMINATION TYPE: XR chest 1V DATE OF EXAM: 10/09/2022 12:53 PM COMPARISON: Chest radiographs from 01/17/2020, CT chest 07/28/2015 TECHNIQUE: XR chest 1V Frontal view of the chest. CLINICAL INDICATION:Female, 77 years old with history of R06.09 DYSPNEA; FINDINGS: Lungs/Pleura: There is no evidence of pleural effusion, focal consolidation, or pneumothorax. Chroni c senescent parenchymal change. Pulmonary vascularity: Unremarkable. Heart/mediastinum: Cardiomediastinal silhouette is unremarkable. Musculoskeletal: No acute osseous pathology. Other findings: Left chest wall surgical clips. IMPRESSION: No acute cardiopulmonary disease/process.
--- NOTE | 2022-10-09 14:24 | NM ---
EXAMINATION TYPE: NM pul vent and perfuse DATE OF EXAM: 10/09/2022 CLINICAL INDICATION: Female, 77 years old with history of R06.09 DYSPNEA; HISTORY: Dyspnea COMPARISON: Chest radiograph the same date TECHNIQUE: Utilizing inhalation of 39.0 mCi Tc 99m DTPA aerosol and intravenous injection of 5.01 mC i of Tc 99m MAA, ventilation and perfusion images are acquired post injection in multiple projections . FINDINGS: Normal radiotracer distribution is noted in the lungs on the perfusion. There is no evidence of misma tched defects. There is clumping perihilar radiotracer demonstrated within the ventilation images radha aterally. IMPRESSION: Low probability for pulmonary embolism with findings suggestive of COPD or clumping artifact. No defe cts identified on the perfusion portion.
== END | disposition home or self-care (01) ==
LOC: RADNMMAIN 12:24
PROVIDERS: ATTEND Internal Medicine
DX: I26.99 Other pulmonary embolism without acute cor pulmonale (principal); R06.09 Other forms of dyspnea
CPT/HCPCS: 71045; 78582; A9540; A9567

== ENCOUNTER 2022-10-16 09:37 | Day surgery (SDC) | payer MEDICARE ==
[2022-10-10 11:14] VITALS: BMI 28.9
[~2022-10-16 09:37] MED LIST changes: -ACETAMINOPHEN TAB 500 MG TAB PO PRN; -DEXAMETHASONE SOD PHOSPHATE 4 MG/ML 1 ML VIAL IV ONE; -HYDROmorphone 0.5 MG/0.5 ML SYRINGE IVP PRN; +LIDOCAINE 1% (10MG/ML) FOR IV START INTRADERMA PRN; -MELOXICAM 7.5 MG TAB PO PRN; -ONDANSETRON 4 MG/2 ML VIAL IVP ONE; -ONDANSETRON 4 MG/2 ML VIAL IVP PRN; -TRANEXAMIC ACID 1,000 MG in SODIUM CHLORIDE 0.9% 100 ML IVPB PRN
[2022-10-16] MEDS ORDERED: LACTATED RINGERS 1,000 ML IV ONE (10:40)
[2022-10-16 11:00] VITALS: TEMP 97.8
[2022-10-16] MEDS ORDERED: PROPOFOL 10 MG/ML 20 ML VIAL IV ONE (11:26)
--- NOTE | 2022-10-16 11:34 | P.PCN ---
Date of Procedure: 10/16/22 Procedure(s) Performed: BRIEF HISTORY: Patient is a 77-year-old, pleasant, white female scheduled for an upper endoscopy as a part of evaluation of epigastric pain , GERD and intermittent dysphagia to solids for the last several months duration. PROCEDURE PERFORMED: Esophagogastroduodenoscopy with biopsy . PREOPERATIVE DIAGNOSIS: Chronic epigastric pain, heartburn and dysphagia. IV sedation per anesthesia. PROCEDURE: After informed consent was obtained, the patient was brought into the endoscopy unit. IV sedation was administered by Anesthesia under continuous monitoring. Initially the Olympus GIF-140 video endoscope was inserted into the mouth. Esophagus intubated without any difficulty. It was gradually advanced into the stomach and duodenum and carefully examined. The bulb and the second part of the duodenum appeared normal. The scope at this time was withdrawn to the stomach, adequately insufflated with air, and upon careful examination, mucosa of the antrum had minimal gastritis and biopsies were done from this area. Mucosa of the , body, cardia and the fundus appeared normal. The scope was then withdrawn into the esophagus. The GE junction was located at 39 cm from the incisors. there were 2 superficial erosions at the GE junction consistent with LA grade a reflux esophagitis. Rest of esophagus appeared normal and the patient tolerated the procedure well. T IMPRESSION: 1. Mild antral gastritis 2 Two superficial erosions at the GE junction consistent with LA grade a reflux esophagitis RECOMMENDATIONS: The findings of this examination were discussed with the patient as well as a family. She was advised to follow with the biopsy results. and the meantime recommended that she start omeprazole 20 mg and follow antireflux measures
[2022-10-16 11:44] VITALS: RESP 16
[2022-10-16 11:59] VITALS: BP 145/82; PULSE 70
== END 2022-10-16 12:13 | disposition home or self-care (01) ==
LOC: ORWHC2ENDO 09:37
PROVIDERS: ATTEND Internal Medicine Gastroenterology
DX: K29.50 Unspecified chronic gastritis without bleeding (principal); K21.00 Gastro-esophageal reflux disease with esophagitis, without bleeding; G89.29 Other chronic pain; I10 Essential (primary) hypertension; E78.5 Hyperlipidemia, unspecified; Z79.899 Other long term (current) drug therapy; F41.9 Anxiety disorder, unspecified; Z98.890 Other specified postprocedural states
CPT/HCPCS: 43239; J2704; 88305

== ENCOUNTER → 2022-11-27 | Outpatient (CLI) | payer MEDICARE ==
[~2022-11-27] MED LIST changes: -LACTATED RINGERS 1,000 ML IV SCH; -LIDOCAINE 1% (10MG/ML) FOR IV START INTRADERMA PRN; +REGADENOSON 0.4 MG/5 ML SYRINGE IV PRN
--- NOTE | 2022-11-27 13:12 | NM ---
EXAMINATION TYPE: NM stress lexiscan cardiolite DATE OF EXAM: 11/27/2022 COMPARISON: NONE CLINICAL INDICATION: Female, 77 years old with history of R06.09 N18.32; TECHNIQUE: After the intravenous administration of 10 mCi Tc 99m Sestamibi - Cardiolite resting SPEC T images acquired 55 minutes post injection. The patient received 0.4mg Lexiscan, 25 mCi Tc 99m Sestamibi - Stress images obtained 50 minutes post injection FINDINGS: Review of stress and rest SPECT images demonstrates no distinct perfusion abnormality. Gated analysi s shows normal wall motion with an estimated left ventricular ejection fraction of 63 %. IMPRESSION: No scintigraphic evidence for reversible ischemia.
--- NOTE | 2022-11-27 17:06 | CA ---
Lexiscan Nuclear Stress Test Report Name: Kallie Montalvo Exam Date: 11/27/2022 10:33 Exam Location: [facility] Stress Ht (in): 62 Wt (lb): 160 BSA: 1.74 Ordering Phys: Ludy Wolfe MD Referring Phys: LUDY WOLFE,, Technologist: STEPHANIE,, Age: 77 Gender: F : 1945 Procedure CPT: Indications: R06.09 N18.32 ICD-10 Codes: Patient History: Difficulty in breathing Medications: Meds past 24 hrs: Pretest Chest Pain: STRESS TEST Lexiscan Protocol Exercise Duration (min:sec): 02:[address] Depressions (mm): Angina Score: Flynn Score: Resting HR (bpm): 56 Peak HR (bpm): 81 Resting BP (mmHg): 128 / 82 Peak BP (mmHg): 129 / 70 MPHR: 141 Target HR: 120 % MPHR: 57 METS: 1.0 Total Dose: Peak Dose: Atropine: Double Product: 12675 BP Response: Stress Termination: Infusion complete Stress Symptoms: No chest pain or symptoms Stress Summary: ECG ANALYSIS Resting ECG: Normal sinus rhythm with right bundle branch block Stress ECG: Patient was given intravenous Lexiscan as a protocol did not have chest pain or diagnostic ST segment depression CONCLUSIONS Negative stress test by EKG criteria Cardiolite portion of the stress test will be reported separately Dr. Miah Mcarthur MD (Electronically Signed) Final Date: 27 November 2022 17:05
== END | disposition home or self-care (01) ==
LOC: RADNMMAIN 11-26 08:41
PROVIDERS: ATTEND Internal Medicine
DX: R07.9 Chest pain, unspecified (principal); R06.09 Other forms of dyspnea; N18.32 Chronic kidney disease, stage 3b
CPT/HCPCS: 93017; 78452; A9500; J2785

== ENCOUNTER → 2023-03-11 | Outpatient (CLI) | payer MEDICARE ==
--- NOTE | 2023-03-11 12:51 | US ---
EXAMINATION TYPE: US kidneys/renal and bladder DATE OF EXAM: 03/11/2023 COMPARISON: US 10/04/2022, CT CLINICAL INDICATION: Female, 77 years old with history of N18.1 CHRONIC KIDNEY DISEASE, STAGE 1; CKD EXAM MEASUREMENTS: Right Kidney: 9.2 x 4.8 x 4.3 cm Left Kidney: 9.5 x 4.2 x 4.6 cm Right Kidney: *Renal pelvis appears dilated. Left Kidney: Very limited due to great amount of gas. Contour appears lobulated. Bladder: Appears wnl. Bilateral Jets seen: Yes Urinary bladder is sonolucent. IMPRESSION: 1. Right extrarenal pelvis.
== END | disposition home or self-care (01) ==
LOC: RADUSWWP 12:05
PROVIDERS: ATTEND Internal Medicine
DX: N18.1 Chronic kidney disease, stage 1 (principal); Q63.8 Other specified congenital malformations of kidney
CPT/HCPCS: 76770

== ENCOUNTER → 2023-11-11 | Outpatient (CLI) | payer MEDICARE ==
--- NOTE | 2023-11-12 08:48 | MM ---
Reason for Exam: Screening (asymptomatic). Last screening mammogram was performed 12 month(s) ago. Patient History: Menarche at age 10. First Full-Term at age 18. Postmenopausal. Breast cancer, left, age 71. Previous chest radiation therapy at age 71. Estrogen for 10 years from age 46 until age 56. Progesterone for 10 years from age 46 until age 56. 1970, Benign Excisional Biopsy on the left side. 02/24/2017, Lumpectomy on the Left side. 10/24/2017, Benign Cyst Aspiration on the left side. 10/24/2017, Benign Core Biopsy on the left side. 01/23/2017, Malignant Core Biopsy on the left side. 04/2017, Radiation Therapy on the left side. 01/17/2017, US discontinued breast bx LT on the left side. Niece had breast cancer, age 40. Prior Study Comparison: 10/26/2020 Bilateral Diagnostic Mammogram, [facility]. 10/29/2021 Bilateral MG 3D diag mammo w/cad REYES, [facility]. 11/05/2022 Bilateral MG 3D diag mammo w/cad REYES, [facility]. Tissue Density: The breasts are heterogeneously dense, which may obscure small masses. Findings: Analyzed By CAD. There is no suspicious group of microcalcifications or new suspicious mass in either breast. Overall Assessment: Benign, BI-RAD 2 Management: Screening Mammogram of both breasts in 1 year. . Patient should continue monthly self-breast exams. A clinical breast exam by your physician is recommended on an annual basis. This exam should not preclude additional follow-up of suspicious palpable abnormalities. Note on Josephine scores and lifetime risk: 1. A Josephine score greater than 3% is considered moderate risk. If this is the case, consider specialist referral to assess eligibility for a risk reducing agent. 2. If overall lifetime risk for the development of breast cancer is 20% or higher, the patient may qualify for future screening with alternating mammogram and breast MRI. Electronically signed and approved by: Bharath Goode M.D. Radiologis
--- NOTE | 2023-11-12 09:22 | BD ---
EXAMINATION TYPE: Axial Bone Density DATE OF EXAM: 11/11/2023 CLINICAL HISTORY: 78 years old Female. ICD-10 CODE: M85.851 OSTEOPENIA Height: 5 ft 1 1/2 in Weight: 158 FRAX RISK QUESTIONS: Alcohol (3 or more units per day): no Family History (Parent hip fracture): no Glucocorticoids (More than 3mos): no (Ex: prednisone, prednisolone, methylprednisolone, dexamethasone, and hydrocortisone). History of Fracture in Adulthood: no Secondary Osteoporosis: 1. Type 1 Diabetes: no 2. Hyperthyroidism: no 3. Menopause before 45: yes 4. Malnutrition: no 5. Chronic liver disease: no Rheumatoid Arthritis: no Current Tobacco Use: no RISK FACTORS HISTORY OF: Surgery to Spine/Hip(right/left)/Wrist (right/left): none MEDICATIONS: Thyroid Medications: none Osteoporosis Medications: none EXAM MEASUREMENTS: Bone mineral densitometry was performed using the [employer] System. Bone mineral density as measured about the Lumbar spine is: ----- L1-L4(G/cm2): 1.047 T Score Values are as follows: ----- L1: -2.9 ----- L2: -1.8 ----- L3: -0.7 ----- L4: 0.1 ----- L1-L4: -1.1 Z Score Values are as follows: ----- L1: -1.3 ----- L2: -0.2 ----- L3: 0.9 ----- L4: 1.7 ----- L1-L4: 0.5 Bone mineral density has: increased 4.2 % since study of: 2021 Bone mineral density about the R hip (g/cm2): 0.820 Bone mineral density about the L hip (g/cm2): 0.854 T Score values are as follows: -----R Neck: -1.6 -----L Neck: -1.3 -----R Total: -1.2 -----L Total: -0.7 Z Score values are as follows: -----R Neck: 0.4 -----L Neck: 0.7 -----R Total: 0.7 -----L Total: 1.1 Bone mineral density has: increased 0.3 % since study of: 2021 FRAX%s: The graph provided illustrates a 13.6 % chance for a major osteoporotic fx and a 3.3 % chance for the hips probability for fx in 10 years time. IMPRESSION: Osteopenia (T Score between -2.5 and -1). There is slightly increased risk of fracture and the patient may be considered for treatment. Re-Screen 2-5 years. NOTE: T-SCORE=SD OF THE YOUNG ADULT MEAN.
== END | disposition home or self-care (01) ==
LOC: RADMAMWWP 13:38
PROVIDERS: ATTEND Internal Medicine
DX: Z12.31 Encounter for screening mammogram for malignant neoplasm of breast (principal); M85.851 Other specified disorders of bone density and structure, right thigh; R92.333 Mammographic heterogeneous density, bilateral breasts; Z78.0 Asymptomatic menopausal state; Z80.3 Family history of malignant neoplasm of breast; M85.88 Other specified disorders of bone density and structure, other site
CPT/HCPCS: 77063; 77067; 77080

== ENCOUNTER → 2024-04-12 | Outpatient (CLI) | payer MEDICARE ==
[2024-04-12 12:44] LABS: African American GFR (CKD) 56 (>60 ml/min/1.73 sqM); Blood Urea Nitrogen 19 mg/dL (7-17); Non-African American GFR(CKD) 48 (>60 ml/min/1.73 sqM)
--- NOTE | 2024-04-12 15:26 | CT ---
EXAMINATION TYPE: CT abdomen pelvis w con DATE OF EXAM: 04/12/2024 COMPARISON: 12/09/2019 CLINICAL INDICATION: Female, 78 years old with history of R11.0 NAUSEA K59.00 CONSTIPATION R10.9 STOM ACH KELSI; PHH, abdominal pain, diarrhea TECHNIQUE: Performed with Oral Contrast and with IV Contrast, patient injected with 80cc mL of Isovue 300. CT DLP: 828.[address] CTDI: mGy Automated exposure control for dose reduction was used. FINDINGS: The lung bases are clear. The gallbladder is normal without distention, wall thickening, pericholecystic fluid or gallstones. T here is no biliary ductal dilatation. There is no focal mass or organomegaly involving the liver, pancreas, spleen or adrenal glands. There is no solid renal mass or hydronephrosis and there is homogeneous contrast enhancement of the r enal parenchyma. The caliber the abdominal aorta is normal is no retroperitoneal adenopathy or hemorr yessy. The bowel loops are normal in caliber and there is no evidence of dilatation or obstruction. No infla mmatory changes are identified in the bowel wall or mesentery. There is marked diverticulosis of the descending and sigmoid colon with no CT evidence of acute diverticulitis. There is no free intraperitoneal air or fluid. No pelvic mass, free fluid, abscess or adenopathy. The osseous structures and soft tissues are intact. IMPRESSION: No acute changes within the abdomen or pelvis. No interval change compared to the prior study of 12/08 [facility], Workstation: [facility], 04/12/2024 3:24 PM
== END | disposition home or self-care (01) ==
LOC: RADCTMAIN 11:59
PROVIDERS: ATTEND Internal Medicine
DX: R11.0 Nausea (principal); K59.00 Constipation, unspecified; R19.7 Diarrhea, unspecified
CPT/HCPCS: 82565; 84520; 74177; 36415; Q9967

== ENCOUNTER 2024-10-19 15:48 | Inpatient (IN) | payer MEDICARE ==
[2024-10-19 17:36] LABS: Basophils # (A) 0.05 10*3/uL (0.00-0.10); Basophils % (A) 0.8 %; Eosinophils # (A) 0.13 10*3/uL (0.04-0.35); Eosinophils % (A) 2.2 %; HCT 41.1 % (37.2-46.3); HGB 14.1 g/dL (12.0-15.0); Lymphocytes # (A) 1.71 10*3/uL (0.90-5.00); Lymphocytes % (A) 28.7 %; MCH 32.9 pg (27.0-32.0); MCHC 34.3 g/dL (32.0-37.0); MCV 96.0 fL (80.0-97.0); Monocytes # (A) 0.48 10*3/uL (0.20-1.00); Monocytes % (A) 8.1 %; Neutrophils # (A) 3.57 10*3/uL (1.80-7.70); Neutrophils % (A) 60.0 %; Platelet Count 229 10*3/uL (140-440); RBC 4.28 10*6/uL (4.10-5.20); RDW 12.7 % (11.5-14.5); WBC 5.95 10*3/uL (4.50-10.00)
[2024-10-19 17:49] LABS: ALT 85 U/L (4-34); AST 44 U/L (14-36); African American GFR (CKD) 53 (>60 ml/min/1.73 sqM); Albumin 4.5 g/dL (3.5-5.0); Alkaline Phosphatase 119 U/L (38-126); Anion Gap 13 mmol/L; Blood Urea Nitrogen 24 mg/dL (7-17); Calcium 10.0 mg/dL (8.4-10.2); Carbon Dioxide 23 mmol/L (22-30); Chloride 107 mmol/L (98-107); Glucose 95 mg/dL (74-99); Magnesium 2.2 mg/dL (1.6-2.3); Non-African American GFR(CKD) 46 (>60 ml/min/1.73 sqM); Potassium 3.8 mmol/L (3.5-5.1); Sodium 143 mmol/L (137-145); Total Protein 7.1 g/dL (6.3-8.2)
--- NOTE | 2024-10-19 17:55 | XR ---
EXAMINATION TYPE: XR chest 2V DATE OF EXAM: 10/19/2024 5:51 PM COMPARISON: Chest radiographs from 10/09/2022 TECHNIQUE: XR chest 2V Frontal and lateral views of the chest. CLINICAL INDICATION:Female, 79 years old with history of dysrhythmia; FINDINGS: Lungs/Pleura: There is flattening of the diaphragm with increased lucency of the lungs. Consistent wi th COPD changes. No evidence of pneumothorax, pleural effusion or focal consolidation. Pulmonary vascularity: Chronic central pulmonary vascular congestion. Heart/mediastinum: Cardiomediastinal silhouette is enlarged and stable. Musculoskeletal: Multiple level degenerative disc disease changes seen throughout the spine. Other: Surgical clips within the left breast and axilla. IMPRESSION: Chronic changes without acute pulmonary process. No significant change from prior. [facility], , 10/19/2024 5:53 PM
[2024-10-19 18:00] LABS: INR 1.0 (<1.2); Partial Thromboplastin Time 22.6 sec (22.0-30.0); Prothrombin Time 10.7 sec (10.0-12.5)
--- NOTE | 2024-10-19 18:00 | ED ---
SOB HPI - General Chief Complaint: Shortness of Breath Stated Complaint: shortness of breath, chest discomfort Time Seen by Provider: 10/19/24 15:54 Source: patient, EMS Mode of arrival: wheelchair Limitations: no limitations - History of Present Illness Initial Comments: 79-year-old female presents emergency department from Dr. Rocha's office. Daughter took her and they are reporting that she has had shortness of breath and fatigue for the past couple of weeks. She has had some chest pressure. Dr. Rocha completed an EKG which demonstrated that the patient was in the third- degree heart block and sent her immediately over to the hospital. Patient denies having a history of any heart problems. No coronary disease. No irregular heart rhythms. Patient has seen Dr. Asencio before in the past. She is on multiple blood pressure medications. Denies taking any extra doses of her medications. She does admit to some lower extremity swelling. No fevers chills or cough. No other alleviating, precipitating or modifying factors - Related Data Home Medications Medication Instructions Recorded Confirmed ALPRAZolam [Xanax] 0.25 tab PO BID 12/03/14 10/19/24 HYDROcodone/APAP 5-325MG [[place] 1 tab PO DAILY 12/03/14 10/19/24 5-325] Losartan/Hydrochlorothiazide 1 tab PO HS 01/12/16 10/19/24 [Hyzaar 100-25 Tablet] amLODIPine [Norvasc] 10 mg PO DAILY 01/17/20 10/19/24 Atorvastatin [Lipitor] 40 mg PO DAILY 10/19/24 10/19/24 Calcium-Vitamin D3(Unknown Dose) 1 tab PO DAILY 10/19/24 10/19/24 Dapagliflozin Propanediol [Farxiga] 5 mg PO DAILY 10/19/24 10/19/24 Famotidine 40 mg PO HS 10/19/24 10/19/24 Metoprolol Succinate [Toprol XL] 50 mg PO DAILY 10/19/24 10/19/24 Venlafaxine HCl [Effexor XR] 75 mg PO DAILY 10/19/24 10/19/24 Allergies Allergy/AdvReac Type Severity Reaction Status Date / Time adhesive tape Allergy Rash/Hives Verified 10/19/24 19:50 Review of Systems ROS Statement: Those systems with pertinent positive or pertinent negative responses have been documented in the HPI. ROS Other: All systems not noted in ROS Statement are negative. Past Medical History Past Medical History: Cancer, Hyperlipidemia, Hypertension, Osteoarthritis (OA) Additional Past Medical History / Comment(s): SOB w/exertion, hx. breast cancer 2017 w/surgery & radiation, HAS BEEN HAVING DIARRHEA FOR OVER 1 MONTH History of Any Multi-Drug Resistant Organisms: None Reported Past Surgical History: Breast Surgery, Joint Replacement Additional Past Surgical History / Comment(s): left total knee replacement., lumpectomy left breast, COLONOSCOPY, BILAT CATARACTS REMOVED Past Anesthesia/Blood Transfusion Reactions: No Reported Reaction Past Psychological History: Anxiety, Depression Smoking Status: Former smoker Past Alcohol Use History: Rare Past Drug Use History: None Reported - Past Family History Brother(s) Family Medical History: Coronary Artery Disease (CAD) Sister(s) Family Medical History: Coronary Artery Disease (CAD) Daughter(s) Family Medical History: No Reported History Son(s) Family Medical History: No Reported History Father Family Medical History: CVA/TIA (Father at the age of 51 of CVA.) Mother Family Medical History: Cancer General Exam Limitations: no limitations General appearance: alert, in no apparent distress Head exam: Present: atraumatic, normocephalic, normal inspection Eye exam: Present: normal appearance, PERRL, EOMI. Absent: scleral icterus, conjunctival injection, periorbital swelling ENT exam: Present: normal exam, mucous membranes moist Neck exam: Present: normal inspection. Absent: tenderness, meningismus, lymphadenopathy Respiratory exam: Present: normal lung sounds bilaterally. Absent: respiratory distress, wheezes, rales, rhonchi, stridor Cardiovascular Exam: Present: bradycardia, irregular rhythm, normal heart sounds. Absent: systolic murmur, diastolic murmur, rubs, gallop, clicks GI/Abdominal exam: Present: soft, normal bowel sounds. Absent: distended, tenderness, guarding, rebound, rigid Extremities exam: Present: normal inspection, full ROM, normal capillary refill. Absent: tenderness, pedal edema, joint swelling, calf tenderness Back exam: Present: normal inspection Neurological exam: Present: alert, oriented X3, CN II-XII intact Psychiatric exam: Present: normal affect, normal mood Skin exam: Present: warm, dry, intact, normal color. Absent: rash Course Vital Signs 10/19/24 10/19/24 10/19/24 16:42 17:05 18:00 Temperature 98.7 F Pulse Rate 43 L 40 L 73 Respiratory 20 20 16 Rate Blood Pressure 187/68 170/66 159/83 O2 Sat by Pulse 98 98 98 Oximetry 10/19/24 20:57 Temperature Pulse Rate 72 Respiratory 16 Rate Blood Pressure 154/73 O2 Sat by Pulse 97 Oximetry Medical Decision Making - Medical Decision Making Was pt. sent in by a medical professional or institution (, PA, KID CLUB ATTENDANT, urgent care, hospital, or group home...) When possible be specific @ -Spoke with Dr. Rocha who sent the patient over from the office Did you speak to anyone other than the patient for history (EMS, parent, family, police, friend...)? What history was obtained from this source @ -Spoke with Dr. Rocha and the patients daughter Did you review nursing and triage notes (agree or disagree)? Why? @ -I reviewed and agree with nursing and triage notes Were old charts reviewed (outside hosp., previous admission, EMS record, old EKG, old radiological studies, urgent care reports/EKG's, group home records)? Report findings @ -No old charts were reviewed Differential Diagnosis (chest pain, altered mental status, abdominal pain women, abdominal pain men, vaginal bleeding, weakness, fever, dyspnea, syncope, headache, dizziness, GI bleed, back pain, seizure, CVA, palpatations, mental health, musculoskeletal)? @ -Differential Dyspnea: Coronary syndrome, arrhythmia, tamponade, asthma, COPD, pulmonary embolism, pneumonia, pneumothorax, pulmonary effusion, anaphylaxis, diabetic ketoacidosis, flailed chest, pulmonary contusion, diaphragmatic rupture, anemia, neuromuscular, this is not meant to be an all-inclusive list. EKG interpreted by me (3pts min.). @ - First EKG done at 1657 demonstrates third-degree heart block with a rate of 40. QRS 121. QTc of 438. No acute ST segment elevations or depressions. Repeat completed at 1755 demonstrates sinus rhythm with a rate of 67. ME interval 179. QRS 126. QTc of 460. No acute ST segment elevations or depressions X-rays interpreted by me (1pt min.). @ -Yes which demonstrates no acute process CT interpreted by me (1pt min.). @ -None done U/S interpreted by me (1pt. min.). @ -None done What testing was considered but not performed or refused? (CT, X-rays, U/S, labs)? Why? @ -None What meds were considered but not given or refused? Why? @ -None Did you discuss the management of the patient with other professionals (professionals i.e. Dr., PA, KID CLUB ATTENDANT, lab, RT, psych nurse, social media marketing manager, supervisor purification, teacher, community cultural development officer, bilingual patient support caseworker)? Give summary @ -Spoke with Dr. Asencio while he was in radiographer cardiac catheterization to notify him that the patie nt was here with an intermittent third-degree heart block. Also spoke with Dr. Rocha for admission Was smoking cessation discussed for >3mins.? @ -No Was critical care preformed (if so, how long)? @ -35 minutes for management of complete heart block Were there social determinants of health that impacted care today? How? (Homelessness, low income, unemployed, alcoholism, drug addiction, transpor tation, low edu. Level, literacy, decrease access to med. care, penitentiary, rehab)? @ -No Was there de-escalation of care discussed even if they declined (Discuss DNR or withdrawal of care, Hospice)? DNR status @ -No What co-morbidities impacted this encounter? (DM, HTN, Smoking, COPD, CAD, Cancer, CVA, ARF, Chemo, Hep., AIDS, mental health diagnosis, sleep apnea, morbid obesity)? @ -Hypertension, hyperlipidemia Was patient admitted / discharged? Hospital course, mention meds given and route, prescriptions, significant lab abnormalities, going to OR and other pertinent info. @ -Upon arrival patient seen and evaluated in trauma 4. Thorough history and physical exam was performed. Patient placed on continuous pulse ox and cardiac monitoring. Twelve-lead EKG is obtained which demonstrates third-degree heart block. Patient is hemodynamically stable. Laboratory studies are conducted and chest x-ray was performed. Patient does convert out of the heart block. I did speak with Dr. Asencio who was in the Foil [facility]utter to notify him of the patient. I also spoke with Dr. Rocha for admission Undiagnosed new problem with uncertain prognosis? @ -No Drug Therapy requiring intensive monitoring for toxicity (Heparin, Nitro, Insulin, Cardizem)? @ -No Were any procedures done? @ -No Diagnosis/symptom? @ -Acute dyspnea, third-degree heart block- transient Acute, or Chronic, or Acute on Chronic? @ -Acute Uncomplicated (without systemic symptoms) or Complicated (systemic symptoms)? @ -Complicated Side effects of treatment? @ -No Exacerbation, Progression, or Severe Exacerbation? @ -No Poses a threat to life or bodily function? How? (Chest pain, [place], [place], pneumonia, PE, COPD, DKA, ARF, appy, cholecystitis, CVA, Diverticulitis, Homicidal, Suicidal, threat to staff... and all critical care pts) @ -Yes as patient was in complete heart block - Lab Data Result diagrams: 10/23/24 05:17 10/23/24 05:17 Lab Results 10/19/24 10/19/24 10/19/24 Range/Units 17:18 17:18 17:18 WBC 5.95 (4.50-10.00) 10*3/uL RBC 4.28 (4.10-5.20) 10*6/uL Hgb 14.1 (12.0-15.0) g/dL Hct 41.1 (37.2-46.3) % MCV 96.0 (80.0-97.0) fL MCH 32.9 H (27.0-32.0) pg MCHC 34.3 (32.0-37.0) g/dL Plt Count 229 (140-440) 10*3/uL MPV 12.0 (9.5-12.2) fL Immature Gran % (Auto) 0.2 % Neutrophils % 60.0 % Lymphocytes % 28.7 % Monocytes % 8.1 % Eosinophils % 2.2 % Basophils % 0.8 % Immature Gran # 0.01 (0.00-0.04) 10*3/uL Neutrophils # 3.57 (1.80-7.70) 10*3/uL Lymphocytes # 1.71 (0.90-5.00) 10*3/uL Monocytes # 0.48 (0.20-1.00) 10*3/uL Eosinophils # 0.13 (0.04-0.35) 10*3/uL Basophils # 0.05 (0.00-0.10) 10*3/uL PT 10.7 (10.0-12.5) sec INR 1.0 (<1.2) APTT 22.6 (22.0-30.0) sec Sodium 143 (137-145) mmol/L Potassium 3.8 (3.5-5.1) mmol/L Chloride 107 (98-107) mmol/L Carbon Dioxide 23 (22-30) mmol/L Anion Gap 13 mmol/L BUN 24 H (7-17) mg/dL Creatinine 1.12 H (0.52-1.04) mg/dL Est GFR (CKD-EPI)AfAm 53 (>60 ml/min/1.73 sqM) Est GFR (CKD-EPI)NonAf 46 (>60 ml/min/1.73 sqM) Glucose 95 (74-99) mg/dL Calcium 10.0 (8.4-10.2) mg/dL Magnesium 2.2 (1.6-2.3) mg/dL Total Bilirubin 1.0 (0.2-1.3) mg/dL AST 44 H (14-36) U/L ALT 85 H (4-34) U/L Alkaline Phosphatase 119 (38-126) U/L Troponin I (0.000-0.034) ng/mL NT-Pro-B Natriuret Pep pg/mL Total Protein 7.1 (6.3-8.2) g/dL Albumin 4.5 (3.5-5.0) g/dL TSH 2.990 (0.465-4.680) mIU/L Urine Color Urine Appearance (Clear) Urine pH (5.0-8.0) Ur Specific [place] (1.001-1.035) Urine Protein (Negative) Urine Glucose (UA) (Negative) Urine Ketones (Negative) Urine Blood (Negative) Urine Nitrite (Negative) Urine Bilirubin (Negative) Urine Urobilinogen (<2.0) mg/dL Ur Leukocyte Esterase (Negative) 10/19/24 10/19/24 10/19/24 Range/Units 17:18 17:18 19:20 WBC (4.50-10.00) 10*3/uL RBC (4.10-5.20) 10*6/uL Hgb (12.0-15.0) g/dL Hct (37.2-46.3) % MCV (80.0-97.0) fL MCH (27.0-32.0) pg MCHC (32.0-37.0) g/dL Plt Count (140-440) 10*3/uL MPV (9.5-12.2) fL Immature Gran % (Auto) % Neutrophils % % Lymphocytes % % Monocytes % % Eosinophils % % Basophils % % Immature Gran # (0.00-0.04) 10*3/uL Neutrophils # (1.80-7.70) 10*3/uL Lymphocytes # (0.90-5.00) 10*3/uL Monocytes # (0.20-1.00) 10*3/uL Eosinophils # (0.04-0.35) 10*3/uL Basophils # (0.00-0.10) 10*3/uL PT (10.0-12.5) sec INR (<1.2) APTT (22.0-30.0) sec Sodium (137-145) mmol/L Potassium (3.5-5.1) mmol/L Chloride (98-107) mmol/L Carbon Dioxide (22-30) mmol/L Anion Gap mmol/L BUN (7-17) mg/dL Creatinine (0.52-1.04) mg/dL Est GFR (CKD-EPI)AfAm (>60 ml/min/1.73 sqM) Est GFR (CKD-EPI)NonAf (>60 ml/min/1.73 sqM) Glucose (74-99) mg/dL Calcium (8.4-10.2) mg/dL Magnesium (1.6-2.3) mg/dL Total Bilirubin (0.2-1.3) mg/dL AST (14-36) U/L ALT (4-34) U/L Alkaline Phosphatase (38-126) U/L Troponin I 0.019 (0.000-0.034) ng/mL NT-Pro-B Natriuret Pep 3100 pg/mL Total Protein (6.3-8.2) g/dL Albumin (3.5-5.0) g/dL TSH (0.465-4.680) mIU/L Urine Color Colorless Urine Appearance Clear (Clear) Urine pH 7.0 (5.0-8.0) Ur Specific [place] 1.008 (1.001-1.035) Urine Protein Negative (Negative) Urine Glucose (UA) 3+ H (Negative) Urine Ketones Negative (Negative) Urine Blood Negative (Negative) Urine Nitrite Negative (Negative) Urine Bilirubin Negative (Negative) Urine Urobilinogen <2.0 (<2.0) mg/dL Ur Leukocyte Esterase Negative (Negative) Disposition Clinical Impression: Third degree heart block, Acute respiratory insufficiency Disposition: ADMITTED IP TO THIS HOSP Condition: Serious Is patient prescribed a controlled substance at d/c from ED?: No Time of Disposition: 19:07 Decision to Admit Reason: Admit from EC Decision Date: 10/19/24 Decision Time: 19:07
[2024-10-19] MEDS ORDERED: NALOXONE 0.4 MG/ML 1 ML VIAL IV PRN (19:07)
[2024-10-19 19:25] LABS: Bilirubin,Urine Negative (Negative); Blood,Urine Negative (Negative); Color,Urine Colorless; Glucose,Urine (UA) 3+ (Negative); Ketones,Urine Negative (Negative); Leukocyte Esterase,Urine Negative (Negative); Nitrite,Urine Negative (Negative); PH, Urine 7.0 (5.0-8.0); Protein,Urine Negative (Negative); Specific Gravity,Urine 1.008 (1.001-1.035); Urobilinogen,Urine <2.0 mg/dL (<2.0)
[2024-10-20] MEDS: FAMOTIDINE 20 MG TAB PO SCH ×2 (00:09→20:09)
[2024-10-20] MEDS: ALPRAZolam 0.25 MG TAB PO SCH (00:09)
[2024-10-20] MEDS: LOSARTAN-HCTZ 50-12.5 MG 1 EACH TAB PO SCH (00:09)
[2024-10-20 06:11] LABS: Basophils # (A) 0.02 10*3/uL (0.00-0.10); Basophils % (A) 0.5 %; Eosinophils # (A) 0.21 10*3/uL (0.04-0.35); Eosinophils % (A) 4.8 %; HCT 39.4 % (37.2-46.3); HGB 13.4 g/dL (12.0-15.0); Lymphocytes # (A) 1.07 10*3/uL (0.90-5.00); Lymphocytes % (A) 24.4 %; MCH 32.2 pg (27.0-32.0); MCHC 34.0 g/dL (32.0-37.0); MCV 94.7 fL (80.0-97.0); Monocytes # (A) 0.35 10*3/uL (0.20-1.00); Monocytes % (A) 8.0 %; Neutrophils # (A) 2.73 10*3/uL (1.80-7.70); Neutrophils % (A) 62.3 %; Platelet Count 206 10*3/uL (140-440); RBC 4.16 10*6/uL (4.10-5.20); RDW 12.6 % (11.5-14.5); WBC 4.38 10*3/uL (4.50-10.00)
[2024-10-20 06:28] LABS: ALT 69 U/L (4-34); AST 34 U/L (14-36); African American GFR (CKD) 66 (>60 ml/min/1.73 sqM); Albumin 4.1 g/dL (3.5-5.0); Alkaline Phosphatase 102 U/L (38-126); Anion Gap 10 mmol/L; Blood Urea Nitrogen 17 mg/dL (7-17); Calcium 9.5 mg/dL (8.4-10.2); Carbon Dioxide 24 mmol/L (22-30); Chloride 108 mmol/L (98-107); Glucose 92 mg/dL (74-99); Magnesium 2.1 mg/dL (1.6-2.3); Non-African American GFR(CKD) 57 (>60 ml/min/1.73 sqM); Potassium 4.0 mmol/L (3.5-5.1); Sodium 142 mmol/L (137-145); Total Protein 6.3 g/dL (6.3-8.2)
[2024-10-20] MEDS ORDERED: DAPAGLIFLOZIN PROPANEDIOL 5 MG TABLET PO SCH (09:00)
[2024-10-20] MEDS: DAPAGLIFLOZIN PROPANEDIOL 10 MG TABLET PO SCH (09:35)
[2024-10-20] MEDS: ATORVASTATIN 40 MG TAB PO SCH (09:35)
[2024-10-20] MEDS: HYDROcodone/APAP 5-325MG 1 EACH TAB PO SCH (09:35)
[2024-10-20] MEDS: HEPARIN SODIUM,PORCINE 5,000 UNIT/ML 1 ML VIAL SQ SCH (09:35)
[2024-10-20] MEDS: VENLAFAXINE HCL ER 75 MG CAP PO SCH (09:35)
[2024-10-20] MEDS: amLODIPine 10 MG TAB PO SCH (09:35)
[2024-10-20] MEDS: CALCIUM CARB-VIT D 500 MG-5 MCG TAB PO SCH (09:35)
--- NOTE | 2024-10-20 11:50 | CA ---
Transthoracic Echo Report Name: Kallie Montalvo Age: 79 Gender: F : 1945 Exam Date: 10/20/2024 09:29 Exam Location: [facility] Ht (in): 63 Wt (lb): 172 Ordering Physician: Rosalind Marinelli DO Attending/Referring Phys: [id number], Yves Buckle Inspector Sigrid Moraes, FELECIA Procedure CPT: Indications: third degree heart block Cardiac Hx: Technical Quality: Fair Contrast 1: Total Dose (mL): Contrast 2: Total Dose (mL): MEASUREMENTS (Male / Female) Normal Values 2D ECHO LV Diastolic Diameter PLAX 4.4 cm 4.2 - 5.9 / 3.9 - 5.3 cm LV Systolic Diameter PLAX 3.4 cm IVS Diastolic Thickness 1.2 cm 0.6 - 1.0 / 0.6 - 0.9 cm LVPW Diastolic Thickness 1.1 cm 0.6 - 1.0 / 0.6 - 0.9 cm LV Relative Wall Thickness 0.5 RV Internal Dim ED PLAX 2.5 cm LA Systolic Diameter LX 2.8 cm 3.0 - 4.0 / 2.7 - 3.8 cm LV Diastolic Volume MOD BP 50.8 cm??? 67 - 155 / 56 - 104 cm??? LV Systolic Volume MOD BP 28.2 cm??? - 58 / 19 - 49 cm??? LV Ejection Fraction MOD BP 44.6 % >= 55 % LV Cardiac Index MOD BP 670.7 cm???/min???m??? LV Diastolic Volume MOD 4C 60.1 cm??? LV Systolic Volume MOD 4C 33.0 cm??? LV Ejection Fraction MOD 4C 45.0 % LV Cardiac Index MOD 4C 802.2 cm???/min???m??? LV Diastolic Length 4C 6.8 cm LV Systolic Length 4C 6.0 cm LV Diastolic Volume MOD 2C 42.1 cm??? LV Systolic Volume MOD 2C 13.0 cm??? LV Ejection Fraction MOD 2C 69.1 % LV Cardiac Index MOD 2C 862.6 cm???/min???m??? LV Diastolic Length 2C 7.0 cm LV Systolic Length 2C 3.2 cm LA Volume 53.4 cm??? 18 - 58 / 22 - 52 cm??? LA Volume Index 28.3 cm???/m??? 16 - 28 cm???/m??? M-MODE Aortic Root Diameter MM 3.4 cm LA Systolic Diameter MM 2.5 cm LA Ao Ratio MM 0.7 AV Cusp Separation MM 1.9 cm DOPPLER AI Peak Velocity 362.8 cm/s AI Peak Gradient 52.6 mmHg AI Pressure Half Time 1043.3 ms MV Area PHT 2.3 cm??? Mitral E Point Velocity 78.3 cm/s Mitral A Point Velocity 94.8 cm/s Mitral E to A Ratio 0.8 MV Deceleration Time 323.4 ms TR Peak Velocity 270.9 cm/s TR Peak Gradient 31.1 mmHg Right Atrial Pressure 5.0 mmHg Pulmonary Artery Systolic Pressu 34.4 mmHg Right Ventricular Systolic Press 34.4 mmHg PV Peak Velocity 114.5 cm/s PV Peak Gradient 5.2 mmHg PI Peak Gradient 8.9 mmHg Pulmonary Artery Diastolic Press 13.9 mmHg FINDINGS Left Ventricle Left ventricular ejection fraction is estimated at 45-50%. Mildly increased septal wall thickness. Mildly increased posterior wall thickness. Mildly reduced global left ventricular systolic function. Left ventricular cavity size normal. Right Ventricle Normal right ventricular size and function. Right ventricular systolic pressure within normal limits. Right Atrium Mild right atrial dilatation. Left Atrium Moderate left atrial dilatation. Mitral Valve Structurally normal mitral valve. No mitral stenosis. [id number] mitral regurgitation. Aortic Valve Trileaflet aortic valve. Mild aortic regurgitation. No aortic stenosis. Tricuspid Valve Structurally normal tricuspid valve. Moderate tricuspid regurgitation. No tricuspid stenosis. Pulmonic Valve Structurally normal pulmonic valve. Mild pulmonic regurgitation. No pulmonic stenosis. Pericardium No pericardial or pleural effusion. Aorta Normal size aortic root and proximal ascending aorta. CONCLUSIONS Reason: Symptomatic third-degree heart block Normal LV size and function with mild left ventricle hypertrophy Normal RV size and function Mild biatrial enlargement Prominent pericardial stripe with trace pericardial effusion. The pericardium appears thickened Previewed by: Dr. Eugene Asencio MD (Electronically Signed) Final Date: 20 October 2024 11:49
--- NOTE | 2024-10-20 14:09 | P.HPIM ---
History of Present Illness H&P Date: 10/20/24 Chief Complaint: Dyspnea on exertion/third-degree AV block HISTORY OF PRESENT ILLNESS: This is an 79-year-old female patient of mine with diffuse medical history significant for hypertension and hypertensive heart vascular disease, mixed hyperlipidemia, history of major depressive disorder, malignant neoplasm of left breast status post lumpectomy with lymph node localization February 24 2017, history of GERD with esophagitis, osteoarthritis, patient presented to the office yesterday with her daughter complaining of 2-week history of increased shortness of breath, generalized fatigue not able to do anything, she has been frustrated with her situation, she is not able to get out and do anything she had gained a lot of weight, patient is known to have underlying COPD because of remote tobacco use and dependence that she has quit more than 25 years ago, at least half a pack every day, patient had a twelve-lead EKG in the office that showed third-degree AV block, the plan initially was to run some lab test and set her up for a myocardial perfusion imaging which she had about 2 years ago was negative for stress-induced ischemia of note is also the patient did have a left heart catheterization that was done in February 26, 2019 that showed normal coronaries, but because of her presentation and because of the third degree AV block, patient was referred to the emergency department for evaluation, initially was seen in the ER she was in third-degree AV block and eventually she converted on her own to a sinus rhythm, patient will be admitted to the hospital for evaluation by cardiology and for possible need for permanent pacemaker placement REVIEW OF SYSTEMS: Constitutional: No documented fever, no chills, no night sweats. positive for weight change. No weakness, fatigue or lethargy. No daytime sleepiness. EENT: No headache. No blurred vision or double vision, no loss of vision. No loss of Hearing, no ringing in the ears, no dizziness. No nasal drainage or congestion. No epistaxis. No sore throat. Lungs: positive for shortness of breath, no cough, no sputum production. No wheezing. Reports dyspnea with activity. Cardiovascular: positive for chest pain, no lower extremity edema. No palpitations. No paroxysmal nocturnal dyspnea. No orthopnea. No lightheadedness or dizziness. No syncopal episodes. Abdominal: Reports abdominal pain. No nausea, vomiting. No diarrhea. No constipation. No bloody or tarry stools reports loss of appetite. Genitourinary: No dysuria, increased frequency, urgency. No urinary retention. Musculoskeletal: No myalgias. No muscle weakness, no gait dysfunction, no frequent falls. positive for back pain. No neck pain. Integumentary: No wounds, no lesions. No rash or pruritus. No unusual bruising. No change in hair or nails. Neurologic: No aphasia. No facial droop. No change in mentation. No head injury. No headache. No paralysis. No paresthesia. Psychiatric: positive for depression. positive for anxiety. No mood swings. Endocrine: No abnormal blood sugars. No weight change. PAST MEDICAL HISTORY: Hypertension and hypertensive cardiovascular disease. Mixed hyperlipidemia. GERD with esophagitis. COPD. Obstructive sleep apnea. Depression. Spondylosis of the lumbar spine. Chronic kidney disease stage IIIb. Irritable bowel syndrome with diarrhea. Osteopenia of the right hip. PAST SURGICAL HISTORY: Left breast lumpectomy with lymph node localization 02/24/2017 Left breast biopsy Left heart catheterization 02/26/2019 Colonoscopy 06/09/2020 Cataract surgery. EGD 11/05/2022 SOCIAL HISTORY: Patient used to smoke about half a pack every day since his age of 12 and she quit about 25 years ago, she drinks socially, she denies any drug use or abuse, she lives alone with her dog. FAMILY HISTORY: Father at the age of 54 from CVA and he eventually committed suicide, mother at age 70 from colon cancer Brother at at the age of 87 from COPD oxygen dependent had abdominal aortic aneurysm the other brother was 74-year-old has COPD pulmonary fibrosis patient had 1 sister who at the age of 74 from congestive heart failure patient has 2 daughters alive and well 1 with anxiety and the other 1 with restless leg syndrome, PHYSICAL EXAMINATION: General: 79-year-old female sitting up in bed no apparent distress. HEENT: Head is atraumatic, normocephalic, pupils were equal round reactive to light and recommendation, extraocular muscle movement were intact, sclera nonicteric, conjunctivae were pale, mucous membranes of the mouth are somewhat dry. Neck: Supple, no JVP, normal carotid upstroke bilaterally, no lymphadenopathy. Chest: Decreased breath sounds at the bases, few rhonchi, no expiratory wheezes, no chest wall tenderness, no intercostal retractions. Heart: First heart sound is normal, second heart sounds normal is normal, there are systolic ejection murmur 2 over cystic in the left sternal border. Abdomen: Soft, nontender, nondistended, positive bowel sounds. Extremities: There is no edema no calf tenderness DP +2 bilaterally. Neurologic examination: Patient is awake alert and oriented x3, cranial nerves II-12 appear grossly intact, muscle power were 5 out of 5 in upper extremities and 5 out of 5 in bilateral lower extremities, deep tendon reflexes normal bilaterally. ASSESSMENT AND PLAN: 1. Third-degree AV block converted to sinus bradycardia. Laboratory evaluation was reviewed, Cardiology Consultation appreciated, patient is to be monitored further recommendation is to follow the patient progression. 2. Hypertension and hypertensive cardiovascular disease. Continue present amlodipine 10 mg orally once every day, along with losartan 100/25 mg orally once every day monitor the patient blood pressure very closely. Hold metoprolol ER for now. 3. Mixed hyperlipidemia continue patient on atorvastatin 40 mg once every day, monitor lipid panel, keep LDL 55-70. 4. Kidney disease stage 3A. Avoid nephrotoxin, continue patient on Farxiga 10 mg orally once every day. 5. GERD with esophagitis. Continue patient on famotidine 40 mg at bedtime. 6. Major depressive disorder. Continue venlafaxine 75 mg orally once every day. 7. COPD. Stable at this time, she will need to have a CT scan of the chest as an outpatient, along with pulmonary function test. 8. DVT prophylaxis. Continue patient on Lovenox 40 mg subcutaneous every 24 hours. 9. GI prophylaxis. Continue patient on famotidine 40 mg orally once every day. 10. Admit to inpatient. Estimated length of stay 2 midnights. 11. Full code. Past Medical History Past Medical History: Cancer, Hyperlipidemia, Hypertension, Osteoarthritis (OA) Additional Past Medical History / Comment(s): SOB w/exertion, hx. breast cancer 2017 w/surgery & radiation, HAS BEEN HAVING DIARRHEA FOR OVER 1 MONTH History of Any Multi-Drug Resistant Organisms: None Reported Past Surgical History: Breast Surgery, Joint Replacement Additional Past Surgical History / Comment(s): left total knee replacement., lumpectomy left breast, COLONOSCOPY, BILAT CATARACTS REMOVED Past Anesthesia/Blood Transfusion Reactions: No Reported Reaction Past Psychological History: Anxiety, Depression Smoking Status: Former smoker Past Alcohol Use History: Rare Additional Past Alcohol Use History / Comment(s): quit smoking 1998, smoked since age 13, smoked less than 1ppd Past Drug Use History: None Reported - Past Family History Brother(s) Family Medical History: Coronary Artery Disease (CAD) Sister(s) Family Medical History: Coronary Artery Disease (CAD) Daughter(s) Family Medical History: No Reported History Son(s) Family Medical History: No Reported History Father Family Medical History: CVA/TIA (Father at the age of 51 of CVA.) Mother Family Medical History: Cancer Medications and Allergies Home Medications Medication Instructions Recorded Confirmed Type ALPRAZolam [Xanax] 0.25 tab PO BID 12/03/14 10/19/24 History HYDROcodone/APAP 5-325MG [[place] 1 tab PO DAILY 12/03/14 10/19/24 History 5-325] Losartan/Hydrochlorothiazide 1 tab PO HS 01/12/16 10/19/24 History [Hyzaar 100-25 Tablet] amLODIPine [Norvasc] 10 mg PO DAILY 01/17/20 10/19/24 History Atorvastatin [Lipitor] 40 mg PO DAILY 10/19/24 10/19/24 History Calcium-Vitamin D3(Unknown Dose) 1 tab PO DAILY 10/19/24 10/19/24 History Dapagliflozin Propanediol [Farxiga] 5 mg PO DAILY 10/19/24 10/19/24 History Famotidine 40 mg PO HS 10/19/24 10/19/24 History Metoprolol Succinate [Toprol XL] 50 mg PO DAILY 10/19/24 10/19/24 History Venlafaxine HCl [Effexor XR] 75 mg PO DAILY 10/19/24 10/19/24 History Allergies Allergy/AdvReac Type Severity Reaction Status Date / Time adhesive tape Allergy Rash/Hives Verified 10/19/24 19:50 Physical Exam Vitals: Vital Signs Temp Pulse Pulse Resp BP BP Pulse Ox 10/20/24 00:05 64 14 123/76 96 10/19/24 21:15 97.8 F 68 14 145/73 97 10/19/24 20:57 72 16 154/73 97 10/19/24 18:00 73 16 159/83 98 10/19/24 17:05 40 L 20 170/66 98 10/19/24 16:42 98.7 F 43 L 20 187/68 98 Intake and Output 10/19/24 10/19/24 10/20/24 14:59 22:59 06:59 Other: Voiding Method Toilet Toilet Weight 78.018 kg Results CBC & Chem 7: 10/20/24 05:37 10/21/24 19:32 Labs: Abnormal Lab Results - Last 24 Hours (Table) 10/19/24 10/19/24 10/19/24 Range/Units 17:18 17:18 19:20 MCH 32.9 H (27.0-32.0) pg BUN 24 H (7-17) mg/dL Creatinine 1.12 H (0.52-1.04) mg/dL AST 44 H (14-36) U/L ALT 85 H (4-34) U/L Urine Glucose (UA) 3+ H (Negative) Thrombosis Risk Factor Assmnt - Choose All That Apply Any of the Below Risk Factors Present?: Yes Each Factor Represents 1 point: Obesity (BMI >25), Swollen legs (current) Other Risk Factors: Yes Each Risk Factor Represents 3 Points: Age 75 years or older Thrombosis Risk Factor Assessment Total Risk Factor Score: 5 Thrombosis Risk Factor Assessment Level: High Risk
[2024-10-20 15:26] LABS: Cholesterol 129.00 mg/dL (0.00-200.00); HDL Cholesterol 66.20 mg/dL (40.00-60.00); LDL Cholesterol,Calculated 46.9 mg/dL (0.0-131.0); Triglycerides 79.30 mg/dL (0.00-149.00); VLDL Calculation 15.86 mg/dL (5.00-40.00)
--- NOTE | 2024-10-20 16:11 | P.CRDCN ---
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 She was evaluated by her PCP Dr. Rocha yesterday in the office for exertional dyspnea and EKG was positive for third-degree AV block. Patient reports that she has been experiencing a month-long exertional dyspnea associated with tiredness and fatigue. Patient reports that she barely has any strength to do activities of the daily living. Patient feels like she wants to sleep all day. Patient also endorsing worsening lower extremity edema but denies orthopnea and PND. Patient also been experiencing intermittent chest discomfort which she describes as " fluttering" for the past 1 month or so. Patient had episode of syncope last year. Patient has been established in the past with Dr. Garcai from [facility]. She underwent cardiac catheterization in 2018 which revealed normal coronary arteries. Her most recent stress test in 2022 showed no evidence for reversible ischemia. Patient is a former smoker quit more than 25 years ago. No alcohol. No other drugs. Initial EKG done in the ER showed third-degree AV block. Subsequent EKG showed sinus bradycardia and right bundle branch block. Her home cardiac meds include amlodipine, metoprolol succinate, Hyzaar, Farxiga, Lipitor. Pertinent labs: WBC 4.3, hemoglobin 13.4, sodium 142, potassium 4.0, BUN 70, creatinine 0.94, magnesium 2.1. NT proBNP 3100. Troponin negative Chest x-ray shows no acute cardiopulmonary process. Echocardiogram shows LVEF of 45 to 50% with prominent pericardial strip with trace pericardial effusion. Vital signs shows heart rate 63, respiratory rate 14, blood pressure 136/84, oxygen saturation 97% on room air Review of systems: Patient denies chest pain, headaches, dizziness, abdominal pain, dysuria, numbness, weakness or tingling in upper or lower extremities. Social history: As in HPI Physical examination: Vital signs reviewed General: non toxic, no distress, appears at stated age, overweight Head: atraumatic, normocephalic, symmetric Eyes: EOMI, no lid lag, anicteric sclera, pupils equal round reactive to light ENT: Nose and ears atraumatic Neck: No cervical lymphadenopathy, trachea midline, supple Mouth: no lip lesion, mucus membranes moist Cardiovascular: S1S2 reg, no murmur, positive dorsalis pedis pulse bilateral, trace pedal edema Lungs: CTA bilateral, no rhonchi, no rales, no accessory muscle use Abdominal: soft, nontender to palpation, no guarding Psych: Alert, oriented, appropriate affect Assessment: #Third-degree AV block, reverted to sinus rhythm #HFrEF not in exacerbation #Exertional dyspnea #Hypertension #Hyperlipidemia #Remote tobacco dependence #COPD Active: Discontinue metoprolol Discontinue Farxiga Check HbA1c, lipid panel, TSH Resume her hypertensive medications including amlodipine and Hyzaar Continue with Lipitor Continue cardiac telemetry Dr. Garcia will evaluate and make a decision regarding pacemaker placement Cardiac catheterization tomorrow to rule out CAD Keep patient n.p.o. after midnight Past Medical History Past Medical History: Cancer, Hyperlipidemia, Hypertension, Osteoarthritis (OA) Additional Past Medical History / Comment(s): SOB w/exertion, hx. breast cancer 2017 w/surgery & radiation, HAS BEEN HAVING DIARRHEA FOR OVER 1 MONTH History of Any Multi-Drug Resistant Organisms: None Reported Past Surgical History: Breast Surgery, Joint Replacement Additional Past Surgical History / Comment(s): left total knee replacement., lumpectomy left breast, COLONOSCOPY, BILAT CATARACTS REMOVED Past Anesthesia/Blood Transfusion Reactions: No Reported Reaction Past Psychological History: Anxiety, Depression Smoking Status: Former smoker Past Alcohol Use History: Rare Additional Past Alcohol Use History / Comment(s): quit smoking 1998, smoked since age 13, smoked less than 1ppd Past Drug Use History: None Reported - Past Family History Brother(s) Family Medical History: Coronary Artery Disease (CAD) Sister(s) Family Medical History: Coronary Artery Disease (CAD) Daughter(s) Family Medical History: No Reported History Son(s) Family Medical History: No Reported History Father Family Medical History: CVA/TIA (Father at the age of 51 of CVA.) Mother Family Medical History: Cancer Medications and Allergies Home Medications Medication Instructions Recorded Confirmed Type ALPRAZolam [Xanax] 0.25 tab PO BID 12/03/14 10/19/24 History HYDROcodone/APAP 5-325MG [[place] 1 tab PO DAILY 12/03/14 10/19/24 History 5-325] Losartan/Hydrochlorothiazide 1 tab PO HS 01/12/16 10/19/24 History [Hyzaar 100-25 Tablet] amLODIPine [Norvasc] 10 mg PO DAILY 01/17/20 10/19/24 History Atorvastatin [Lipitor] 40 mg PO DAILY 10/19/24 10/19/24 History Calcium-Vitamin D3(Unknown Dose) 1 tab PO DAILY 10/19/24 10/19/24 History Dapagliflozin Propanediol [Farxiga] 5 mg PO DAILY 10/19/24 10/19/24 History Famotidine 40 mg PO HS 10/19/24 10/19/24 History Metoprolol Succinate [Toprol XL] 50 mg PO DAILY 10/19/24 10/19/24 History Venlafaxine HCl [Effexor XR] 75 mg PO DAILY 10/19/24 10/19/24 History Allergies Allergy/AdvReac Type Severity Reaction Status Date / Time adhesive tape Allergy Rash/Hives Verified 10/19/24 19:50 Physical Exam Vitals: Vital Signs Temp Pulse Pulse Resp BP BP Pulse Ox 10/20/24 04:05 54 L 14 126/79 96 10/20/24 00:05 64 14 123/76 96 10/19/24 21:15 97.8 F 68 14 145/73 97 10/19/24 20:57 72 16 154/73 97 10/19/24 18:00 73 16 159/83 98 10/19/24 17:05 40 L 20 170/66 98 10/19/24 16:42 98.7 F 43 L 20 187/68 98 Intake and Output 10/19/24 10/20/24 10/20/24 22:59 06:59 14:59 Other: Voiding Method Toilet Toilet # Voids 1 Weight 78.018 kg 75.6 kg Results 10/20/24 05:37 10/20/24 05:37 Cardiac Enzymes 10/19/24 10/19/24 10/19/24 Range/Units 17:18 17:18 19:59 AST 44 H (14-36) U/L Troponin I 0.019 0.025 (0.000-0.034) ng/mL 10/20/24 10/20/24 Range/Units 00:21 05:37 AST 34 (14-36) U/L Troponin I 0.020 (0.000-0.034) ng/mL Coagulation 10/19/24 Range/Units 17:18 PT 10.7 (10.0-12.5) sec APTT 22.6 (22.0-30.0) sec CBC 10/19/24 10/20/24 Range/Units 17:18 05:37 WBC 5.95 4.38 L (4.50-10.00) 10*3/uL RBC 4.28 4.16 (4.10-5.20) 10*6/uL Hgb 14.1 13.4 (12.0-15.0) g/dL Hct 41.1 39.4 (37.2-46.3) % Plt Count 229 206 (140-440) 10*3/uL Comprehensive Metabolic Panel 10/19/24 10/20/24 Range/Units 17:18 05:37 Sodium 143 142 (137-145) mmol/L Potassium 3.8 4.0 (3.5-5.1) mmol/L Chloride 107 108 H (98-107) mmol/L Carbon Dioxide 23 24 (22-30) mmol/L BUN 24 H 17 (7-17) mg/dL Creatinine 1.12 H 0.94 (0.52-1.04) mg/dL Glucose 95 92 (74-99) mg/dL Calcium 10.0 9.5 (8.4-10.2) mg/dL AST 44 H 34 (14-36) U/L ALT 85 H 69 H (4-34) U/L Alkaline Phosphatase 119 102 (38-126) U/L Total Protein 7.1 6.3 (6.3-8.2) g/dL Albumin 4.5 4.1 (3.5-5.0) g/dL Current Medications Generic Name Dose Route Start Last Admin Trade Name Freq PRN Reason Stop Dose Admin Hydrocodone Bitart/Acetaminophen 1 each 10/20/24 09:00 Hydrocodone/Apap 5-325mg 1 Each Tab PO DAILY [facility] Alprazolam 0.25 mg 10/19/24 22:00 10/20/24 00:09 Alprazolam 0.25 Mg Tab PO 0.25 mg BID TIMOTEO Administration Amlodipine Besylate 10 mg 10/20/24 09:00 Amlodipine 10 Mg Tab PO DAILY [facility] Atorvastatin Calcium 40 mg 10/20/24 09:00 Atorvastatin 40 Mg Tab PO DAILY [facility] Calcium Carbonate 1 each 10/20/24 09:00 Calcium Carb-Vit D 500 Mg-5 Mcg Tab PO DAILY [facility] Dapagliflozin 10 mg 10/20/24 09:00 Dapagliflozin Propanediol 10 Mg Tablet PO DAILY [facility] Famotidine 40 mg 10/19/24 22:15 10/20/24 00:09 Famotidine 20 Mg Tab PO 40 mg HS TIMOTEO Administration HCTZ/Losartan Potassium 2 each 10/19/24 22:15 10/20/24 00:09 Losartan-Hctz 50-12.5 Mg 1 Each Tab PO 2 each HS [facility]OTEO Administration Heparin Sodium (Porcine) 5,000 unit 10/20/24 08:00 Heparin Sodium,Porcine 5,000 Unit/Ml 1 Ml Vial SQ Q8HR [facility]OTEO Naloxone HCl 0.2 mg 10/19/24 19:07 Naloxone 0.4 Mg/Ml 1 Ml Vial IV Q2M PRN Opioid Reversal Venlafaxine HCl 75 mg 10/20/24 09:00 Venlafaxine Hcl Er 75 Mg Cap PO DAILY [facility] Intake and Output 10/19/24 10/20/24 10/20/24 22:59 06:59 14:59 Other: Voiding Method Toilet Toilet # Voids 1 Weight 78.018 kg 75.6 kg 10/20/24 05:37 10/20/24 05:37
[2024-10-20] MEDS ORDERED: ALPRAZolam 0.25 MG TAB PO PRN (22:41)
[2024-10-20] MEDS ORDERED: NITROGLYCERIN SL TABS 0.4 MG TAB SUBLINGUAL PRN (22:41)
[2024-10-20] MEDS: ASPIRIN 325 MG TAB PO STA (22:53)
[2024-10-20] MEDS: ATORVASTATIN 80 MG TAB PO STA (22:53)
[2024-10-21] MEDS ORDERED: NITROGLYCERIN SL TABS 0.4 MG TAB SUBLINGUAL PRN (05:00)
[2024-10-21] MEDS ORDERED: ALPRAZolam 0.25 MG TAB PO PRN (05:00)
[2024-10-21] MEDS: SODIUM CHLORIDE 0.9% 1,000 ML in EMPTY BAG 1 BAG IV SCH (06:27)
[2024-10-21] MEDS: ASPIRIN 325 MG TAB PO ONE (06:27)
[2024-10-21] MEDS: ATORVASTATIN 80 MG TAB PO ONE (06:27)
[2024-10-21] MEDS: SODIUM CHLORIDE 0.9% 1,000 ML IV ONE (07:52)
[2024-10-21] MEDS: HEPARIN SODIUM,PORCINE (1 ML) 2,500 UNIT in SODIUM CHLORIDE 0.9% 250 ML IRRIGATION PRN (07:53)
[2024-10-21] MEDS: HEPARIN SODIUM,PORCINE 10,000 UNIT in SODIUM CHLORIDE 0.9% 1,000 ML IRRIGATION PRN (07:53)
[2024-10-21] MEDS: fentaNYL (PF) 50 MCG/1 ML VIAL IVP ONE (07:58)
[2024-10-21] MEDS: MIDAZOLAM 2 MG/2 ML VIAL IVP ONE (07:58)
[2024-10-21] MEDS: LIDOCAINE 2% (PF) 20 MG/ML 5 ML VIAL SQ ONE (07:58)
[2024-10-21] MEDS: VERAPAMIL SYRINGE (5 MG/10 ML) INTRAARTER ONE (08:01)
[2024-10-21] MEDS: HEPARIN SODIUM 1,000 UN/ML (10ML VL) IVP ONE (08:08)
[2024-10-21] MEDS: IOPAMIDOL-370 100ML BTL INJ ONE (08:13)
--- NOTE | 2024-10-21 08:40 | P.CARDCATH ---
Date of Procedure: 10/21/24 Description of Procedure: DIAGNOSTIC CORONARY ANGIOGRAPHY and LEFT HEART CATH REPORT PROCEDURES PERFORMED: Left heart catheterization Selective coronary angiography Moderate conscious sedation 15 mins [Ultrasound assisted] Right radial access INDICATION: New cardiomyopathy, complete heart block CONSENT: I have explained the procedural steps of above-mentioned procedures in layman's terms to the patient. I discussed the risks (including but not limited to stroke, emergent vascular or cardiac surgery or ), benefits and alternative therapies for the above-mentioned procedure. I discussed the risks of sedation/analgesia and blood product administration (if indicated). The patient has indicated understanding and acceptance of these risks. Conscious Sedation: Patient's ECG, heart rate, blood pressure, pulse oximetry were monitored throughout the duration of procedure under my direct supervision. 1 mg Versed and 50 mcg Fentanyl were used for induction of moderate conscious sedation. Total duration of moderate concious sedation 15 minutes. PROCEDURAL DETAILS: Patient was prepped and draped in sterile fashion. 1% lidocaine was infiltrated over the right radial artery. Right radial access was obtained via modified seldinger technique. [Ultrasound was used for radial access]. Medications: 5mg of verapamil was administed in the radial sheet. 4500 Units of Heparin was administed once the catheter reached the aortic root Wires and Catheter used: J wire was advanced under fluroscopy to get to aortic root. 5 zimbabwean JR 4 diagnostic catheter was utilized obtain left ventricular pressure and pressure gradint across aortic valve. 5 zimbabwean JR 4 diagnostic catheter was used to selectively engage the right coronary ostium. 5 zimbabwean JL 3.5 diagnostic catheter was utilized to selectively engage the left coronary ostium. Angiographic images were reviewed in detail. Catheter and wire were removed. Radial sheet was flushed. The right radial sheath was removed and a TR band was placed. Patent hemostasis was achieved. The patient tolerated the procedure well. Patient was transp orted back to the post catheterization holding area in stable condition. TECHNICAL DETAILS Total radiation: 78 mGy Total fluro time: 4.8 minutes Total contrast used: Isovue [60 ml] Complications: [none] Estimated Blood loss: less than 15 ml HEMODYNAMICS: Aortic Pressure: 110/70 mmHg. LV pressure: 112/5 mmHg. LVEDP 8 mmHg. There was no significant gradient across the aortic valve. SELECTIVE CORONARY ARTERIOGRAPHY: LEFT MAIN: The left main is short and large caliber vessel. It bifurcates into the LAD and circumflex. Left main appears angiographically normal. LEFT ANTERIOR DESCENDING CORONARY ARTERY: LAD is large caliber reaches up to the apex. Proximal mid and distal LAD appears graphically patent. LAD gives rise to diagonal branch which appears angiographically patent. LEFT CIRCUMFLEX CORONARY ARTERY: LCx is dominant and large caliber. It appears angiographically patent. LCx is Restyl large high OM1 branch which appears graphically patent. Distally SACU rise to PDA and PL branch which appears graphically patent. RIGHT CORONARY ARTERY: Nondominant small caliber, appears sonographically patent. IMPRESSION: Angiographically normal coronary arteries as described above. Normal left sided filling pressures PLAN: 100 cc/h for 4 hours of normal saline Routine postcardiac cath care Evaluation for PPM Performing Physician John Bradford MD, FACC, RPVI Thank you for allowing [facility] to participate in this patient's care. Feel free to reach out in case of any followup questions.
--- NOTE | 2024-10-21 12:57 | P.PN ---
Subjective Progress Note Date: 10/21/24 HISTORY OF PRESENT ILLNESS: This is an 79-year-old female patient of [facility] with diffuse medical history significant for hypertension and hypertensive heart vascular disease, mixed hyperlipidemia, history of major depressive disorder, malignant neoplasm of left breast status post lumpectomy with lymph node localization February 24 2017, history of GERD with esophagitis, osteoarthritis, patient presented to the office yesterday with her daughter complaining of 2-week history of increased shortness of breath, generalized fatigue not able to do anything, she has been frustrated with her situation, she is not able to get out and do anything she had gained a lot of weight, patient is known to have underlying COPD because of remote tobacco use and dependence that she has quit more than 25 years ago, at least half a pack every day, patient had a twelve-lead EKG in the office that showed third-degree AV block, the plan initially was to run some lab test and set her up for a myocardial perfusion imaging which she had about 2 years ago was negative for stress-induced ischemia of note is also the patient did have a left heart catheterization that was done in February 26, 2019 that showed normal coronaries, but because of her presentation and because of the third degree AV block, patient was referred to the emergency department for evaluation, initially was seen in the ER she was in third-degree AV block and eventually she converted on her own to a sinus rhythm, patient will be admitted to the hospital for evaluation by cardiology and for possible need for permanent pacemaker placement 10/21: Patient is sitting up in bed in no apparent distress, she underwent left heart catheterization that showed no evidence of any significant coronary artery disease, therefore the patient was readmitted back to the floor, and the we are awaiting for final disposition whether or not the patient will need to have permanent pacemaker placed prior to her discharge since she had this third deg ree AV block and she is doing better today, she denies any chest pain at this time she has no shortness of breath, she still have the wristband on the right wrist where the radial access was she has no abdominal pain nausea vomiting or diarrhea, she also has hypertension, will add hydralazine 50 mg orally twice every since the patient was taken off metoprolol, continue losartan 100/25 mg once every day and amlodipine 10 mg once every day, monitor the patient blood pressure very closely. If the patient is not able to get her pacemaker now she can be discharged home tomorrow morning and follow-up with me as an outpatient and follow-up with her engraver signature as an outpatient as well. REVIEW OF SYSTEMS: Constitutional: No documented fever, no chills, no night sweats. positive for weight change. No weakness, fatigue or lethargy. No daytime sleepiness. EENT: No headache. No blurred vision or double vision, no loss of vision. No loss of Hearing, no ringing in the ears, no dizziness. No nasal drainage or congestion. No epistaxis. No sore throat. Lungs: positive for shortness of breath, no cough, no sputum production. No wheezing. Reports dyspnea with activity. Cardiovascular: positive for chest pain, no lower extremity edema. No palpitations. No paroxysmal nocturnal dyspnea. No orthopnea. No lightheadedness or dizziness. No syncopal episodes. Abdominal: Reports abdominal pain. No nausea, vomiting. No diarrhea. No constipation. No bloody or tarry stools reports loss of appetite. Genitourinary: No dysuria, increased frequency, urgency. No urinary retention. Musculoskeletal: No myalgias. No muscle weakness, no gait dysfunction, no frequent falls. positive for back pain. No neck pain. Integumentary: No wounds, no lesions. No rash or pruritus. No unusual bruising. No change in hair or nails. Neurologic: No aphasia. No facial droop. No change in mentation. No head injury. No headache. No paralysis. No paresthesia. Psychiatric: positive for depression. positive for anxiety. No mood swings. Endocrine: No abnormal blood sugars. No weight change. PHYSICAL EXAMINATION: General: 79-year-old female sitting up in bed no apparent distress. HEENT: Head is atraumatic, normocephalic, pupils were equal round reactive to light and recommendation, extraocular muscle movement were intact, sclera nonicteric, conjunctivae were pale, mucous membranes of the mouth are somewhat dry. Neck: Supple, no JVP, normal carotid upstroke bilaterally, no lymphadenopathy. Chest: Decreased breath sounds at the bases, few rhonchi, no expiratory wheezes, no chest wall tenderness, no intercostal retractions. Heart: First heart sound is normal, second heart sounds normal is normal, there are systolic ejection murmur 2 over cystic in the left sternal border. Abdomen: Soft, nontender, nondistended, positive bowel sounds. Extremities: There is no edema no calf tenderness DP +2 bilaterally. Neurologic examination: Patient is awake alert and oriented x3, cranial nerves II-12 appear grossly intact, muscle power were 5 out of 5 in upper extremities and 5 out of 5 in bilateral lower extremities, deep tendon reflexes normal bilaterally. ASSESSMENT AND PLAN: 1. Paroxysmal Third-degree AV block converted to sinus bradycardia with underlying ist degree AVB and RBBB Laboratory evaluation was reviewed, Cardiology Consultation appreciated, patient underwent left heart catheterization that showed normal coronary artery and normal LV end-diastolic pressure, patient will be kept in the hospital for possible permanent pacemaker placement due to her underlying rhythm third-degree AV block. 2. Hypertension and hypertensive cardiovascular disease. Continue present amlodipine 10 mg orally once every day, along with losartan 100/25 mg orally once every day monitor the patient blood pressure very closely. Add hydralazine 50 mg orally twice every day, monitor the patient blood pressure very closely. 3. Mixed hyperlipidemia continue patient on atorvastatin 40 mg once every day, monitor lipid panel, keep LDL 55-70. 4. Chronic Kidney disease stage 3A. Avoid nephrotoxin, was taken off [facility] by Cardiology 5. GERD with esophagitis. Continue patient on famotidine 40 mg at bedtime. 6. Major depressive disorder. Continue venlafaxine 75 mg orally once every day. 7. COPD. Stable at this time, she will need to have a CT scan of the chest as an outpatient, along with pulmonary function test. 8. DVT prophylaxis. Continue patient on Lovenox 40 mg subcutaneous every 24 hours. 9. GI prophylaxis. Continue patient on famotidine 40 mg orally once every day. 10. Leadless Pacer (MICRA ) in AM Objective - Vital Signs Vital signs: Vital Signs Temp 97.5 F L 10/21/24 08:41 Pulse 83 10/21/24 11:22 Resp 16 10/21/24 11:22 BP 135/82 10/21/24 11:22 Pulse Ox 95 10/21/24 11:22 FiO2 Intake & Output 10/20/24 10/21/24 10/21/24 18:59 06:59 18:59 Intake Total 658 560 910 Balance 658 560 910 Weight 72.4 kg Intake: IV 20 20 910 Invasive Line 1 20 20 10 Oral 638 540 Other: Voiding Method Toilet Toilet # Voids 1 2 1 - Labs CBC & Chem 7: 10/20/24 05:37 10/21/24 19:32 Labs: Abnormal Lab Results - Last 24 Hours (Table) 10/20/24 Range/Units 05:37 HDL Cholesterol 66.20 H (40.00-60.00) mg/dL
--- NOTE | 2024-10-21 17:20 | P.PN ---
Subjective Progress Note Date: 10/21/24 Patient is a 79-year-old female with history of COPD (not on home oxygen), hypertension, hyperlipidemia, osteoarthritis, left breast cancer status post lumpectomy and radiation therapy in 2017 was sent to ER yesterday 10/19/2024 by her PCP for further evaluation of symptomatic third-degree AV block. She was evaluated by her PCP Dr. Rocha yesterday in the office for exertional dyspnea and EKG was positive for third-degree AV block. Patient reports that she has been experiencing a month-long exertional dyspnea associated with tiredness and fatigue. Patient reports that she barely has any strength to do activities of the daily living. Patient feels like she wants to sleep all day. Patient also endorsing worsening lower extremity edema but denies orthopnea and PND. Patient also been experiencing intermittent chest discomfort which she describes as " fluttering" for the past 1 month or so. Patient had episode of syncope last year. Patient has been established in the past with Dr. Garcia from [facility]. She underwent cardiac catheterization in 2018 which revealed normal coronary arteries. Her most recent stress test in 2022 showed no evidence for reversible ischemia. Patient is a former smoker quit more than 25 years ago. No alcohol. No other drugs. Initial EKG done in the ER showed third-degree AV block. Subsequent EKG showed sinus bradycardia and right bundle branch block. Her home cardiac meds include amlodipine, metoprolol succinate, Hyzaar, Farxiga, Lipitor. Chest x-ray shows no acute cardiopulmonary process. Echocardiogram shows LVEF of 45 to 50% with prominent pericardial strip with trace pericardial effusion. 10/21/2024: Patient seen and examined at the bedside. Patient underwent cardiac catheterization this a.m. Normal coronary arteries. No acute events overnight. Patient denies chest pain or shortness of breath. WBC 4.3, hemoglobin 13.4, sodium 142, potassium 4.0, BUN 7, creatinine 0.94. Heart rate is within normal limits. Physical examination: Vital signs reviewed General: non toxic, no distress, appears at stated age, overweight Head: atraumatic, normocephalic, symmetric Eyes: EOMI, no lid lag, anicteric sclera, pupils equal round reactive to light ENT: Nose and ears atraumatic Neck: No cervical lymphadenopathy, trachea midline, supple Mouth: no lip lesion, mucus membranes moist Cardiovascular: S1S2 reg, no murmur, positive dorsalis pedis pulse bilateral, trace pedal edema Lungs: CTA bilateral, no rhonchi, no rales, no accessory muscle use Abdominal: soft, nontender to palpation, no guarding Psych: Alert, oriented, appropriate affect Assessment: #Third-degree AV block, reverted to sinus rhythm #HFrEF not in exacerbation #Exertional dyspnea #Hypertension #Hyperlipidemia #Remote tobacco dependence #COPD Active: Continue to hold metoprolol Hold Farxiga Continue with amlodipine and Hyzaar Continue with Lipitor Continue cardiac telemetry Dr. Garcia will evaluate and make a decision regarding permanent pacemaker Objective - Vital Signs Vital signs: Vital Signs Temp 97.5 F L 10/21/24 08:41 Pulse 97 10/21/24 15:52 Resp 17 10/21/24 15:52 BP 139/87 10/21/24 15:52 Pulse Ox 98 10/21/24 15:52 FiO2 Intake & Output 10/20/24 10/21/24 10/21/24 18:59 06:59 18:59 Intake Total 199 541 4203 Balance 954 904 3318 Weight 72.4 kg Intake: IV 20 20 920 Invasive Line 1 20 20 20 Oral 638 540 118 Other: Voiding Method Toilet Toilet # Voids 1 2 1 - Labs CBC & Chem 7: 10/20/24 05:37 10/21/24 19:32
--- NOTE | 2024-10-21 19:03 | P.EPCON ---
Electrophysiology Consult - EP Consult Electrophysiology Consult: This is Dr. Asencio dictating an electrophysiology consult on this patient The patient was interviewed and examined IMPRESSION / ASSESSMENT: Paroxysmal complete AV block, symptomatic, likely infrahisian block, unrelated to any triggers or medications Admitted at this time with tiredness fatigue and weakness History of syncope that was witnessed about 1 year back. She was not on beta- blockers at that time Right bundle branch block pattern Known mildly prolonged WA interval Normal coronary arteries normal LVEDP Hypertension She has had a episode of syncope when she was not on beta-blockers. She did not follow-up in the office with me at that time. Her daughter witnessed the episode. The patient became dizzy and lightheaded and when she was helped onto the chair she passed out completely and then recovered spontaneously PLAN: Micra AV implant for intermittent paroxysmal complete heart block History of syncope 1 year back HPI Patient presented with being very tired and fatigued. She was found to have complete heart block, intermittent episodes, with heart rates down to 40 bpm. Beta-blockers were discontinued However she has had an episode of syncope about 1 year back and she was not on beta-blockers at that time She has mildly prolonged WA interval at baseline when I saw her almost 2 years back ROS: No fever chills or rigors, no cough, phlegm or expectoration, no nausea, vomiting or diarrhea, no hematuria, dysuria, no musculoskeletal complaints, no strokes or seizures, no skin lesions. EXAMINATION: 139/87 mmHg pulse rate in the 70s and 80s Heart sounds are normal Breath sounds are clear REVIEW OF LABS, ECG & MEDICAL DATA Electrolytes normal potassium normal
[2024-10-21 20:15] LABS: African American GFR (CKD) 44 (>60 ml/min/1.73 sqM); Anion Gap 14 mmol/L; Blood Urea Nitrogen 20 mg/dL (7-17); Calcium 10.0 mg/dL (8.4-10.2); Carbon Dioxide 23 mmol/L (22-30); Chloride 103 mmol/L (98-107); Glucose 107 mg/dL (74-99); Non-African American GFR(CKD) 38 (>60 ml/min/1.73 sqM); Potassium 4.1 mmol/L (3.5-5.1); Sodium 140 mmol/L (137-145)
[2024-10-22] MEDS: SODIUM CHLORIDE 0.9% 1,000 ML IV SCH ×3 (05:57→05:58)
[2024-10-22] MEDS: IV FLUID CONTINUATION 1,000 ML IV ONE (09:30)
[2024-10-22] MEDS: MIDAZOLAM 2 MG/2 ML VIAL IVP ONE (09:53)
[2024-10-22] MEDS: LIDOCAINE 2% (PF) 20 MG/ML 5 ML VIAL SQ ONE (09:53)
[2024-10-22] MEDS: HEPARIN SODIUM 1,000 UN/ML (10ML VL) IVP ONE (10:07)
[2024-10-22] MEDS ORDERED: ACETAMINOPHEN TAB 325 MG TAB PO PRN (10:52)
--- NOTE | 2024-10-22 10:57 | P.EPPROC ---
- EP Procedure Note Electrophysiology Procedure Note: Procedure Implantation of for Micra AV device Indication for the procedure Bradycardia secondary to recurrent paroxysmal AV block About 1 year back she had an episode of unheralded syncope. She was sitting and she passed out completely, witnessed by her daughter Presented with paroxysmal AV block, symptomatic this time Known mild first-degree AV block with right bundle branch block in the past Details Patient was brought to the EP lab in a fasting state. Written informed consent was obtained prior to the procedure. General anesthesia was provided. Venous access was obtained, right femoral vein The micra system and sheaths were placed in the right atrium The Micra device loaded in the delivery system was passed through this sheath, across the tricuspid valve into the right ventricle and implanted in the RV septum IV dye injection performed in MALTESE and KEATING views to confirm good contact on the septum of the right ventricle Testing performed Good sensing capture and impedance obtained Micra device deployed. Test performed. Stability and showed. Good sensing and pacing thresholds and stable impedances reconfirmed The Micra device detach from the delivery system. Delivery system were drawn Sheaths withdrawn Perclose closure of the venous access Patient tolerated the procedure well without any acute complications R waves 7.1 mV, pacing impedance 1160 and pacing threshold 0.6 V at 0.24 ms
--- NOTE | 2024-10-22 10:59 | P.PRLE ---
RE: Kallie Montalvo Dear Ludy Kallie was admitted with paroxysmal third-degree AV block, symptomatic. About 1 year back she had an episode of syncope while sitting and she lost consciousness completely with spontaneous recovery She has an underlying first-degree AV block with a right bundle branch block that has been documented in the past She underwent implantation of a leadless pacemaker, Micra device successfully She should be ready for discharge tomorrow Thank you for entrusting me with the care of the patient Warm regards Sincerely Eugene Asencio
--- NOTE | 2024-10-22 13:42 | P.PCN ---
Preoperative Diagnosis: Patient underwent EP procedure under conscious sedation/moderate sedation, monitoring of the level of consciousness and physiologic parameters including but not limited to vital signs and oxygenation. Patient tolerated the procedure well without any acute complications. 27-minute
--- NOTE | 2024-10-22 14:46 | P.PN ---
Subjective Progress Note Date: 10/22/24 HISTORY OF PRESENT ILLNESS: This is an 79-year-old female patient of [facility] with diffuse medical history significant for hypertension and hypertensive heart vascular disease, mixed hyperlipidemia, history of major depressive disorder, malignant neoplasm of left breast status post lumpectomy with lymph node localization February 24 2017, history of GERD with esophagitis, osteoarthritis, patient presented to the office yesterday with her daughter complaining of 2-week history of increased shortness of breath, generalized fatigue not able to do anything, she has been frustrated with her situation, she is not able to get out and do anything she had gained a lot of weight, patient is known to have underlying COPD because of remote tobacco use and dependence that she has quit more than 25 years ago, at least half a pack every day, patient had a twelve-lead EKG in the office that showed third-degree AV block, the plan initially was to run some lab test and set her up for a myocardial perfusion imaging which she had about 2 years ago was negative for stress-induced ischemia of note is also the patient did have a left heart catheterization that was done in February 26, 2019 that showed normal coronaries, but because of her presentation and because of the third degree AV block, patient was referred to the emergency department for evaluation, initially was seen in the ER she was in third-degree AV block and eventually she converted on her own to a sinus rhythm, patient will be admitted to the hospital for evaluation by cardiology and for possible need for permanent pacemaker placement 10/21: Patient is sitting up in bed in no apparent distress, she underwent left heart catheterization that showed no evidence of any significant coronary artery disease, therefore the patient was readmitted back to the floor, and the we are awaiting for final disposition whether or not the patient will need to have permanent pacemaker placed prior to her discharge since she had this third deg ree AV block and she is doing better today, she denies any chest pain at this time she has no shortness of breath, she still have the wristband on the right wrist where the radial access was she has no abdominal pain nausea vomiting or diarrhea, she also has hypertension, will add hydralazine 50 mg orally twice every since the patient was taken off metoprolol, continue losartan 100/25 mg once every day and amlodipine 10 mg once every day, monitor the patient blood pressure very closely. If the patient is not able to get her pacemaker now she can be discharged home tomorrow morning and follow-up with me as an outpatient and follow-up with her ad operations intern as an outpatient as well. 10/22: Patient underwent a leadless device placement Micra by Dr. Asencio, and she is staying in the hospital overnight, she will likely be discharged home tomorrow morning, she is denying any chest pain, shortness of breath, she seems to be tolerating her treatment very well, she has no abdominal pain, nausea vomiting or diarrhea she continues to be at bedrest for another few hours, patient then can be ambulating and hopefully she will be get out of the hospital tomorrow morning for REVIEW OF SYSTEMS: Constitutional: No documented fever, no chills, no night sweats. positive for weight change. No weakness, fatigue or lethargy. No daytime sleepiness. EENT: No headache. No blurred vision or double vision, no loss of vision. No loss of Hearing, no ringing in the ears, no dizziness. No nasal drainage or congestion. No epistaxis. No sore throat. Lungs: positive for shortness of breath, no cough, no sputum production. No wheezing. Reports dyspnea with activity. Cardiovascular: positive for chest pain, no lower extremity edema. No palpitations. No paroxysmal nocturnal dyspnea. No orthopnea. No lightheadedness or dizziness. No syncopal episodes. Abdominal: Reports abdominal pain. No nausea, vomiting. No diarrhea. No constipation. No bloody or tarry stools reports loss of appetite. Genitourinary: No dysuria, increased frequency, urgency. No urinary retention. Musculoskeletal: No myalgias. No muscle weakness, no gait dysfunction, no frequent falls. positive for back pain. No neck pain. Integumentary: No wounds, no lesions. No rash or pruritus. No unusual bruising. No change in hair or nails. Neurologic: No aphasia. No facial droop. No change in mentation. No head injury. No headache. No paralysis. No paresthesia. Psychiatric: positive for depression. positive for anxiety. No mood swings. Endocrine: No abnormal blood sugars. No weight change. PHYSICAL EXAMINATION: General: 79-year-old female sitting up in bed no apparent distress. HEENT: Head is atraumatic, normocephalic, pupils were equal round reactive to light and recommendation, extraocular muscle movement were intact, sclera nonicteric, conjunctivae were pale, mucous membranes of the mouth are somewhat dry. Neck: Supple, no JVP, normal carotid upstroke bilaterally, no lymphadenopathy. Chest: Decreased breath sounds at the bases, few rhonchi, no expiratory wheezes, no chest wall tenderness, no intercostal retractions. Heart: First heart sound is normal, second heart sounds normal is normal, there are systolic ejection murmur 2 over cystic in the left sternal border. Abdomen: Soft, nontender, nondistended, positive bowel sounds. Extremities: There is no edema no calf tenderness DP +2 bilaterally. Neurologic examination: Patient is awake alert and oriented x3, cranial nerves II-12 appear grossly intact, muscle power were 5 out of 5 in upper extremities and 5 out of 5 in bilateral lower extremities, deep tendon reflexes normal bilaterally. ASSESSMENT AND PLAN: 1. Paroxysmal third-degree AV block in a patient with a first-degree AV block with a right bundle branch block. Patient underwent a leadless device Micra through the right groin area, tolerated procedure very well, she would like to be discharged home tomorrow morning. 2. Hypertension and hypertensive cardiovascular disease. Continue present amlodipine 10 mg orally once every day, along with losartan 100/25 mg orally once every day monitor the patient blood pressure very closely. Continue hydra lazine 50 mg orally twice every day, monitor the patient blood pressure very closely. 3. Mixed hyperlipidemia continue patient on atorvastatin 40 mg once every day, monitor lipid panel, keep LDL 55-70. 4. Kidney disease stage 3A. Avoid nephrotoxin, continue patient was taken off [facility] by cardiology, will follow-up the patient very closely 5. GERD with esophagitis. Continue patient on famotidine 40 mg at bedtime. 6. Major depressive disorder. Continue venlafaxine 75 mg orally once every day. 7. COPD. Stable at this time, she will need to have a CT scan of the chest as an outpatient, along with pulmonary function test. 8. DVT prophylaxis. Continue patient on Lovenox 40 mg subcutaneous every 24 hours. 9. GI prophylaxis. Continue patient on famotidine 40 mg orally once every day. 10. likely home tomorrow morning. Objective - Vital Signs Vital signs: Vital Signs Temp 98.1 F 10/21/24 20:00 Pulse 76 10/22/24 04:55 Resp 14 10/22/24 04:55 BP 144/76 10/22/24 04:55 Pulse Ox 98 10/22/24 04:55 FiO2 Intake & Output 10/21/24 10/21/24 10/22/24 06:59 18:59 06:59 Intake Total 560 1038 20 Balance 560 1038 20 Weight 72.4 kg 76.9 kg Intake: IV 20 920 20 Invasive Line 1 20 20 20 Oral 540 118 Other: Voiding Method Toilet Toilet Toilet # Voids 2 1 1 - Labs CBC & Chem 7: 10/20/24 05:37 10/21/24 19:32 Labs: Abnormal Lab Results - Last 24 Hours (Table) 10/21/24 Range/Units 19:32 BUN 20 H (7-17) mg/dL Creatinine 1.32 H (0.52-1.04) mg/dL Glucose 107 H (74-99) mg/dL
[2024-10-22 21:01] VITALS: RESP 18
[2024-10-23 05:59] LABS: Basophils # (A) 0.04 10*3/uL (0.00-0.10); Basophils % (A) 0.8 %; Eosinophils # (A) 0.24 10*3/uL (0.04-0.35); Eosinophils % (A) 5.0 %; HCT 39.4 % (37.2-46.3); HGB 13.4 g/dL (12.0-15.0); Lymphocytes # (A) 1.21 10*3/uL (0.90-5.00); Lymphocytes % (A) 25.1 %; MCH 32.3 pg (27.0-32.0); MCHC 34.0 g/dL (32.0-37.0); MCV 94.9 fL (80.0-97.0); Monocytes # (A) 0.43 10*3/uL (0.20-1.00); Monocytes % (A) 8.9 %; Neutrophils # (A) 2.90 10*3/uL (1.80-7.70); Neutrophils % (A) 60.0 %; Platelet Count 209 10*3/uL (140-440); RBC 4.15 10*6/uL (4.10-5.20); RDW 12.6 % (11.5-14.5); WBC 4.83 10*3/uL (4.50-10.00)
[2024-10-23 06:31] LABS: ALT 32 U/L (4-34); AST 24 U/L (14-36); African American GFR (CKD) 52 (>60 ml/min/1.73 sqM); Albumin 3.8 g/dL (3.5-5.0); Alkaline Phosphatase 104 U/L (38-126); Anion Gap 10 mmol/L; Blood Urea Nitrogen 15 mg/dL (7-17); Calcium 9.4 mg/dL (8.4-10.2); Carbon Dioxide 22 mmol/L (22-30); Chloride 108 mmol/L (98-107); Glucose 101 mg/dL (74-99); Non-African American GFR(CKD) 45 (>60 ml/min/1.73 sqM); Potassium 4.2 mmol/L (3.5-5.1); Sodium 140 mmol/L (137-145); Total Protein 6.1 g/dL (6.3-8.2)
--- NOTE | 2024-10-23 07:06 | XR ---
Chest, 2 view. CLINICAL INDICATION: Female, 79 years old with history of post ppm COMPARISON: TECHNIQUE: PA and lateral views the chest are obtained. FINDINGS: The lungs are clear and there is no consolidative or interstitial opacity. There is no pleural effusion or pneumothorax. The heart, pulmonary vasculature, mediastinum and amanda appear normal. The osseous structures are intact. IMPRESSION: No significant abnormality seen. No acute cardiopulmonary disease. [facility], , 10/23/2024 7:04 AM
[2024-10-23 09:35] VITALS: TEMP 97.8
[2024-10-23 11:21] VITALS: BP 123/79; PULSE 91
--- NOTE | 2024-10-23 12:01 | P.PN ---
Subjective Progress Note Date: 10/23/24 Patient is a 79-year-old female with history of COPD (not on home oxygen), hypertension, hyperlipidemia, osteoarthritis, left breast cancer status post lumpectomy and radiation therapy in 2017 was sent to ER yesterday 10/19/2024 by her PCP for further evaluation of symptomatic third-degree AV block. She was evaluated by her PCP Dr. Rocha yesterday in the office for exertional dyspnea and EKG was positive for third-degree AV block. Patient reports that she has been experiencing a month-long exertional dyspnea associated with tiredness and fatigue. Patient reports that she barely has any strength to do activities of the daily living. Patient feels like she wants to sleep all day. Patient also endorsing worsening lower extremity edema but denies orthopnea and PND. Patient also been experiencing intermittent chest discomfort which she describes as " fluttering" for the past 1 month or so. Patient had episode of syncope last year. Patient has been established in the past with Dr. Garcia from [facility]. She underwent cardiac catheterization in 2018 which revealed normal coronary arteries. Her most recent stress test in 2022 showed no evidence for reversible ischemia. Patient is a former smoker quit more than 25 years ago. No alcohol. No other drugs. Initial EKG done in the ER showed third-degree AV block. Subsequent EKG showed sinus bradycardia and right bundle branch block. Her home cardiac meds include amlodipine, metoprolol succinate, Hyzaar, Farxiga, Lipitor. Pertinent labs: WBC 4.3, hemoglobin 13.4, sodium 142, potassium 4.0, BUN 70, creatinine 0.94, magnesium 2.1. NT proBNP 3100. Troponin negative Chest x-ray shows no acute cardiopulmonary process. Echocardiogram shows LVEF of 45 to 50% with prominent pericardial strip with trace pericardial effusion. Heart cath did not show any significant obstructive coronary artery disease Progress note 10/23/2024 Yesterday she underwent Micra PPM placement via right femoral approach. Right groin has a small ecchymosis but no significant hematoma. No pain. Good pulses in bilateral lower extremity. She is noticing to be tachycardic intermittently especially when she is ambulating. This could be related to hydralazine that she received Antiflex tachycardia after stopping her beta-lillie.. Her blood pressure could be most likely high just being in the hospital. I would stop her hydralazine, give her metoprolol 25 twice daily which is her home medication. And recommend to monitor her blood pressure at home She is otherwise cleared from cardiovascular standpoint to be discharged Physical examination: Cardiovascular: S1S2 reg, no murmur, positive dorsalis pedis pulse bilateral, right groin has small ecchymosis, no significant hematoma. Lungs: CTA bilateral, no rhonchi, no rales, no accessory muscle use Abdominal: soft, nontender to palpation, no guarding Psych: Alert, oriented, appropriate affect Assessment: # Paroxysmal third-degree AV block status post Micra PPM #HFrEF not in exacerbation #Exertional dyspnea #Hypertension #Hyperlipidemia #Remote tobacco dependence #COPD Active: Resume metoprolol at 25 mg twice daily, Farxiga 10 mg daily. Stop hydralazine. Seems like this was not her home medication. This can also cause reflex tachycardia. Continue amlodipine, Hyzaar Patient is otherwise cleared from cardiovascular standpoint Recommend follow-up within 1 week in device office and then with Dr. Asencio. Objective - Vital Signs Vital signs: Vital Signs Temp 97.8 F 10/23/24 08:04 Pulse 91 10/23/24 11:18 Resp 18 10/23/24 11:18 BP 123/79 10/23/24 11:18 Pulse Ox 98 10/23/24 11:18 FiO2 Intake & Output 10/22/24 10/23/24 10/23/24 18:59 06:59 18:59 Intake Total 950 540 Balance 950 540 Weight 76.9 kg 75.5 kg Intake: IV 170 Invasive Line 1 20 Oral 780 540 Other: Voiding Method Toilet Toilet # Voids 1 3 - Labs CBC & Chem 7: 10/23/24 05:17 10/23/24 05:17 Labs: Abnormal Lab Results - Last 24 Hours (Table) 10/23/24 10/23/24 Range/Units 05:17 05:17 MCH 32.3 H (27.0-32.0) pg Chloride 108 H (98-107) mmol/L Creatinine 1.14 H (0.52-1.04) mg/dL Glucose 101 H (74-99) mg/dL Total Protein 6.1 L (6.3-8.2) g/dL
--- NOTE | 2024-10-23 12:25 | P.DS ---
Providers Date of admission: 10/19/24 19:41 Expected date of discharge: 10/23/24 Attending physician: Lduy Rocha Consults: 10/19/24 19:36 Consult Physician Urgent Consulting Provider: [facility] Reason/Comments: third degree heart block Do you want consulting provider notified?: Already Contacted Primary care physician: Ludy Rocha [facility] Course: HISTORY OF PRESENT ILLNESS: This is an 79-year-old female patient of mine with diffuse medical history significant for hypertension and hypertensive heart vascular disease, mixed hyperlipidemia, history of major depressive disorder, malignant neoplasm of left breast status post lumpectomy with lymph node localization February 24 2017, history of GERD with esophagitis, osteoarthritis, patient presented to the office yesterday with her daughter complaining of 2-week history of increased shortness of breath, generalized fatigue not able to do anything, she has been frustrated with her situation, she is not able to get out and do anything she had gained a lot of weight, patient is known to have underlying COPD because of remote tobacco use and dependence that she has quit more than 25 years ago, at least half a pack every day, patient had a twelve-lead EKG in the office that showed third-degree AV block, the plan initially was to run some lab test and set her up for a myocardial perfusion imaging which she had about 2 years ago was negative for stress-induced ischemia of note is also the patient did have a left heart catheterization that was done in February 26, 2019 that showed normal coronaries, but because of her presentation and because of the third degree AV block, patient was referred to the emergency department for evaluation, initially was seen in the ER she was in third-degree AV block and eventually she converted on her own to a sinus rhythm, patient will be admitted to the hospital for evaluation by cardiology and for possible need for permanent pacemaker placement 10/21: Patient is sitting up in bed in no apparent distress, she underwent left heart catheterization that showed no evidence of any significant coronary artery disease, therefore the patient was readmitted back to the floor, and the we are awaiting for final disposition whether or not the patient will need to have permanent pacemaker placed prior to her discharge since she had this third degre e AV block and she is doing better today, she denies any chest pain at this time she has no shortness of breath, she still have the wristband on the right wrist where the radial access was she has no abdominal pain nausea vomiting or diarrhea, she also has hypertension, will add hydralazine 50 mg orally twice every since the patient was taken off metoprolol, continue losartan 100/25 mg once every day and amlodipine 10 mg once every day, monitor the patient blood pressure very closely. If the patient is not able to get her pacemaker now she can be discharged home tomorrow morning and follow-up with me as an outpatient and follow-up with her diabetes solutions specialist as an outpatient as well. 10/22: Patient underwent a leadless device placement Micra by Dr. Asencio, and she is staying in the hospital overnight, she will likely be discharged home tomorrow morning, she is denying any chest pain, shortness of breath, she seems to be tolerating her treatment very well, she has no abdominal pain, nausea vomiting or diarrhea she continues to be at bedrest for another few hours, patient then can be ambulating and hopefully she will be get out of the hospital tomorrow morning for 10/23: Patient better today she denies any chest pain, she continues to be somewhat short of breath, she continued to have sinus tachycardia with ambulation, I will discontinue hydralazine completely, due to reflex tachycar giin, continue metoprolol 25 mg orally twice every day, continue Hyzaar continue with amlodipine as well, follow-up with the patient as an outpatient next week, in the office. Discharge diagnoses: 1. Paroxysmal third-degree AV block in a patient with a first-degree AV block with a right bundle branch block status post leadless pacemaker Micra 2. Hypertension and hypertensive cardiovascular disease. 3. Mixed hyperlipidemia 4. Kidney disease stage 3A. 5. GERD with esophagitis. 6. Major depressive disorder. 7. COPD. Patient Condition at Discharge: Stable Plan - Discharge Summary Discharge Rx Participant: Yes New Discharge Prescriptions: No Action ALPRAZolam [Xanax] 0.25 tab PO BID HYDROcodone/APAP 5-325MG [[place] 5-325] 1 tab PO DAILY Losartan/Hydrochlorothiazide [Hyzaar 100-25 Tablet] 1 tab PO HS amLODIPine [Norvasc] 10 mg PO DAILY Famotidine 40 mg PO HS Metoprolol Succinate [Toprol XL] 50 mg PO DAILY Venlafaxine HCl [Effexor XR] 75 mg PO DAILY Atorvastatin [Lipitor] 40 mg PO DAILY Dapagliflozin Propanediol [Farxiga] 5 mg PO DAILY Calcium-Vitamin D3(Unknown Dose) 1 tab PO DAILY Discharge Medication List ALPRAZolam [Xanax] 0.25 tab PO BID 12/03/14 [History] HYDROcodone/APAP 5-325MG [[place] 5-325] 1 tab PO DAILY 12/03/14 [History] Losartan/Hydrochlorothiazide [Hyzaar 100-25 Tablet] 1 tab PO HS 01/12/16 [History] amLODIPine [Norvasc] 10 mg PO DAILY 01/17/20 [History] Atorvastatin [Lipitor] 40 mg PO DAILY 10/19/24 [History] Calcium-Vitamin D3(Unknown Dose) 1 tab PO DAILY 10/19/24 [History] Dapagliflozin Propanediol [Farxiga] 5 mg PO DAILY 10/19/24 [History] Famotidine 40 mg PO HS 10/19/24 [History] Metoprolol Succinate [Toprol XL] 50 mg PO DAILY 10/19/24 [History] Venlafaxine HCl [Effexor XR] 75 mg PO DAILY 10/19/24 [History] Follow up Appointment(s)/Referral(s): Ludy Rocha MD [Primary Care Provider] - 1-2 days
[2024-10-23] MEDS: METOPROLOL TARTRATE 25 MG TAB PO SCH (12:33)
[2024-10-23] MEDS: DAPAGLIFLOZIN PROPANEDIOL 10 MG TABLET PO SCH (12:33)
== END 2024-10-23 16:05 | disposition home or self-care (01) | DRG 229 ==
LOC: EC 15:48 → 3SCARD 19:41
PROVIDERS: ADMIT Internal Medicine; ATTEND Internal Medicine
PROC: 4A023N7 Measurement of Cardiac Sampling and Pressure, Left Heart, Percutaneous Approach (ICD-10-PCS; 2024-10-21)
PROC: B2111ZZ Fluoroscopy of Multiple Coronary Arteries using Low Osmolar Contrast (ICD-10-PCS; 2024-10-21)
PROC: 02HK3NZ Insertion of Intracardiac Pacemaker into Right Ventricle, Percutaneous Approach (ICD-10-PCS; principal; 2024-10-22 13:00)
DX: I44.2 Atrioventricular block, complete (principal); I13.0 Hypertensive heart and chronic kidney disease with heart failure and stage 1 through stage 4 chronic kidney disease, or unspecified chronic kidney disease; I50.22 Chronic systolic (congestive) heart failure; I42.9 Cardiomyopathy, unspecified; J44.9 Chronic obstructive pulmonary disease, unspecified; N18.31 Chronic kidney disease, stage 3a; F32.9 Major depressive disorder, single episode, unspecified; I45.10 Unspecified right bundle-branch block; M47.816 Spondylosis without myelopathy or radiculopathy, lumbar region; G47.33 Obstructive sleep apnea (adult) (pediatric); K58.0 Irritable bowel syndrome with diarrhea; K21.00 Gastro-esophageal reflux disease with esophagitis, without bleeding; M85.851 Other specified disorders of bone density and structure, right thigh; E78.2 Mixed hyperlipidemia; Z87.891 Personal history of nicotine dependence; F41.9 Anxiety disorder, unspecified; Z79.84 Long term (current) use of oral hypoglycemic drugs; Z79.899 Other long term (current) drug therapy; Z85.3 Personal history of malignant neoplasm of breast; Z96.652 Presence of left artificial knee joint; Z28.310 Unvaccinated for COVID-19
CPT/HCPCS: 33274; 36415; 71046; 80048; 80053; 80061; 81003; 83036; 83735; 83880; 84443; 84484; 85025; 85610; 85730; 86850; 86900; 86901; 93005; 93306; 93458; 99291